=== PATIENT | male | born 1970 | race Caucasian/White ===

== ENCOUNTER 2016-10-11 09:37 | Inpatient (IN) | payer MEDICARE, OTHER ==
[~2016-10-11] VITALS: Ht 182.9 cm; Wt 93.4 kg
[~2016-10-11 09:37] MED LIST: FLUT16SP; LITH600C PO; QUET400T PO
[2016-10-11 10:02] VITALS: BP 169/100; PULSE 85; RESP 20; O2SAT 97
[2016-10-11] MEDS ORDERED: DIVA500T14 PO ×2 (10:22)
[2016-10-11] MEDS ORDERED: TADA5TAB2 PO (10:22)
[2016-10-11] MEDS ORDERED: OLANZapine Zydis ODT 5 mg Tablet PO SCH (10:35)
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
[2016-10-11 10:56] LABS: BASOPHILS % (AUTO) 0.8 % (0-3); EOSINOPHILS % (AUTO) 0.4 % (0-5); MONOCYTES % (AUTO) 10.4 % (4-12); Mean Corpuscular Hemoglobin 31.3 pg (27.0-35.0); Mean Corpuscular Volume 90.6 fL (81-100); NEUTROPHILS % (AUTO) 75.7 % (40-74); Platelet Count 254 bil/L (150-400)
[2016-10-11 11:17] LABS: APPEARANCE,URINE CLEAR (CLEAR,HAZY); COLOR,URINE YELLOW (YELLOW); OCCULT BLOOD,URINE TRACE (NEGATIVE); UROBILINOGEN,URINE NORMAL (NORMAL)
[2016-10-11 11:18] LABS: ICTOTEST,URINE NEGATIVE (Negative)
[2016-10-11] MEDS ORDERED: Haloperidol 5 mg/mL Inj IM PRN (11:45)
[2016-10-11 14:26] VITALS: BP 143/89; PULSE 51; RESP 18; O2SAT 100
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
[2016-10-11] MEDS ORDERED: Alum-Mag Hydrox-Simeth 30 mL Suspension PO PRN (18:25)
--- NOTE | 2016-10-12 05:04 | NUR ---
nursing, nights, 11-7 s- i feel dehydrated. can i have a snack. wondering if i can take a shower. do you have any clean underwear. thank you. o- has appeared to sleep until 0 when he requested a snack and something to drink. returned to sleep after 0030 to 0445. is currently showering. assessed q 15 minutes. a- interupted sleep, appears internally preoccupied at times, no apparent physical distress. p- monitor behavior/emotional state, quality, times and amount of sleep, use and effect of medication. alban
[2016-10-12] MEDS: LORazepam 1 mg Tablet PO PRN ×2 (06:03→17:02)
[2016-10-12 08:30] VITALS: BP 151/103; PULSE 77; RESP 17
--- NOTE | 2016-10-12 16:11 | NUR ---
Air Brake Man/Counselor S:"I am here because of sleep depravation." O:Patient did not express any SI or HI, no AVH, and no depression. He rated his anxiety at a 5. A: Patient did not express any AVH but stated that he was telepathic, but unable to share specifics. He appeared very paranoid in talking about the telepathy. He is tangential. Poor historian. He has swelling to his right hand but denies any pain, and was not able to recall how he may have injured his hand. P: Follow care plan and coordinate with outpatient providers. Addendum: 10/12/16 at 6 by CORNELL ZAMUDIO [facility] [place] Patient attended group the 11am group session and participated in all discussions.
--- NOTE | 2016-10-12 16:51 | NUR ---
Nursing Dayshift: S: "I didn't eat anything for the week before I got here. I think that might have something to do with how I'm feeling." O: Patient has been out in the public areas of the unit much of the shift. Eating well at meals. Social with staff and peers. Attending group activities. At present is out on the patio with peers. Has been making his requests known. A: Guarded. Directable. A little pressured. P: CPOC. Monitor mood and behavior.
[2016-10-12] MEDS: diphenhydrAMINE 25 mg Capsule PO PRN ×2 (17:02→21:34)
--- NOTE | 2016-10-12 17:07 | NUR ---
spiritual care: pt request brief visit in piano room. Pt energetic in manner, rapid-normal in speech patterns and eye contact. Pt did not engage in leading questions, rambling style of thought/conversation. Pt requested prayer and specified that he wanted to hold left hands--he recited sanjay carrillo and abbey vázquez then reconvened conversation.
--- NOTE | 2016-10-12 17:14 | NUR ---
Nurses PRN Patient requested and received "something for my nerves".Ativan 1mg and Benadryl 25mg received at this time,will assess response.
--- NOTE | 2016-10-12 17:39 | NUR ---
Observations 899 - 2129 Pt affect and mood was labile, intrusive, intense, inappropriate at times, scattered and confused. Pt was pleasant, polite and cooperative when approached. Pt maintained behavior throughout the shift. Pt speech was rambling and rapid. Pt eye contact was ok. Pt ate snack. Pt repeatedly keeps saying that hes in trouble and sorry for whats hes done. Pt paced the hallway, was busy on the unit and social during the day. Pt attended community meeting, groups or unit activities. Pt set a daily goal and rated his mood 12/24, with 10 being the best. Pt went out on patio with staff and peers to get some fresh air and sunshine. Pt was observed every 15 minutes through the shift as ordered. Addendum: 10/12/16 at 1840 by SOPHIA [facility] Pt was able to sign all of his admission paperwork this shift. Pt attended all meals in D.[facility]. and ate 100%.
[2016-10-12] MEDS ORDERED: [UNRECOGNIZED DRUG - REMARK] PO SCH (21:00)
[2016-10-12] MEDS: Fluticasone 0.05% 15 Spray/2 Gm 16 Gm Nasal Spray NOSTRIL SCH (21:30)
[2016-10-12] MEDS: QUEtiapine 300 MG, QUEtiapine 100 MG PO SCH ×2 (21:33)
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
--- NOTE | 2016-10-13 03:27 | NUR ---
nursing, nights, 11-7 s- i need a sheet. it's wet. i'm cold. no i don't want a blanket. i want more shirts. since the lad jarodk and doctor are not her. o- slept [id number]. up appeared to be masturbating while wandering the martin. sleeps for short periods 1/2 to 1 hour. assessed q 15 minutes. a- interupted/inadequate sleep, disorganized, directable, no apparent physical distress. p- monitor behavior/emotional state, quality, times and amount of sleep, use and effect of medication. rayfernando Addendum: 10/13/16 at 0540 by KOURTNEY CONROY RN Pt noted to sleep very poorly this shift. To nursing station with multiple requests. Pt presents intense at times and very disorganized. Pt requested medication for agitation this am and medicated with Ativan, Benadryl and Vistaril. Pt was adamant that he does not want Haldol every again, and that he wants to speak to ED MD, staff, and hospital community administrator about receiving it in the emergency department Addendum: 10/13/16 at 0614 by KOURTNEY CONROY RN Pt reports little improvement if any with medications given for agitation. AM dose of lithium given at this time. Continuing to monitor mood and behavior.
[2016-10-13] MEDS: hydrOXYzine Pamoate 25 mg Capsule PO PRN ×2 (05:31→10:32)
[2016-10-13] MEDS: LORazepam 1 mg Tablet PO PRN ×2 (05:31→15:42)
[2016-10-13] MEDS: diphenhydrAMINE 25 mg Capsule PO PRN (05:31)
[2016-10-13] MEDS: Fluticasone 0.05% 15 Spray/2 Gm 16 Gm Nasal Spray NOSTRIL SCH ×2 (08:05→20:40)
[2016-10-13 09:16] LABS: BASOPHILS % (AUTO) 1.5 % (0-3); EOSINOPHILS % (AUTO) 4.2 % (0-5); MONOCYTES % (AUTO) 9.2 % (4-12); Mean Corpuscular Hemoglobin 31.2 pg (27.0-35.0); Mean Corpuscular Volume 91.3 fL (81-100); NEUTROPHILS % (AUTO) 55.9 % (40-74); Platelet Count 272 bil/L (150-400)
[2016-10-13 13:51] VITALS: BP 150/93; PULSE 94; RESP 16
--- NOTE | 2016-10-13 15:26 | NUR ---
[facility] Day Shift Pt maintained behavioral control throughout the shift, though pt occasionally requires redirection from bizarre behavior. Pt affect appears mostly flat, preoccupied. Pt spends most of the shift pacing the unit, interacting with peers, and resting in his room. Pt speech occasionally appears nonsensical, bizarre. Pt behavior occasionally appears bizarre as well (ex. pt entered the hallway with his entire head/face wrapped in a sheet, blindly walking down the martin). Pt is mostly appropriate with staff and peers when active on the unit, but is occasionally intrusive/inappropriate and requires redirection. Pt attended community meeting in the AM and group activities throughout the shift. Pt has attended all meals at this time and has eaten approx 100% of all meals.
--- NOTE | 2016-10-13 15:48 | NUR ---
Nursing Dayshift: S: "Can I get these washed? I wouldn't advise you touch them." O: Patient started to hand bedding to this staff and then made the above statement. Had made his bed with new bedding provided by staff earlier this shift. Noted to be wearing a blanket around his head as a turban with an opening for his eyes. Has been c/o eye sensitively and has been loaned a unit pair of sunglasses. Grateful though stated he would like to keep them and take them home when he leaves. No episodes of masturbation noted or reported. Good appetite at meals. Rates anxiety at "medium". Depression "none". Denies harmful thoughts and hallucinations. A: Bizarre. Intrusive at times. Disorganized. P: CPOC. Monitor mood and behavior.
--- NOTE | 2016-10-13 18:02 | PCM.PNPSY ---
Subjective Date of Service Oct 13, 2016 Subjective The patient reported that he felt extremely claustrophobic when he was in the seclusion room in the emergency room which is why he punched the wall. He reported that he felt rather groggy after medications this morning but would still like to have something routine. He reported that the trazodone was not sufficient to help him sleep and that a relative had used 100 mg. He reported having a photographic memory as well as "NAYA" which he referred to as "extra spider veronica" in a joking fashion. He reported having the ability to predict the future. Other than grogginess he denied side effects to medications. Sleep: 0 hours per staff 2 hours per patient Appetite: "Good" Suicidal and homicidal ideation: Denies Auditory hallucinations: Denies Visual hallucinations: Denies Other Psychotic Symptoms: Denies paranoia, delusions as above Anxiety: "Better" Depression: "Going away" Current Medications Current Medications Acetaminophen 650 mg Q4H PRN PO Last administered on 10/13/16 16:20; Admin Dose 650 MG; Start 10/11/16 at 18:25 Diphenhydramine HCl 25 mg Q4H PRN PO Last administered on 10/13/16 05:31; Admin Dose 25 MG; Start 10/11/16 at 21:00 Fluticasone Propionate 1 spray BID NOSTRIL Last administered on 10/13/16 08:05 ; Admin Dose 1 SPRAY; Start 10/12/16 at 20:30 Hydroxyzine Pamoate 25-50mg po q6h prn anx/agit Q6H PRN PO Last administered on 10/13/16 10:32; Admin Dose 50 MG; Start 10/12/16 at 22:15 [place] Carbonate 600 mg BID PO Last administered on 10/13/16 06:11; Admin Dose 600 MG; Start 10/12/16 at 20:30 Lorazepam 1 mg Q4H PRN PO Last administered on 10/13/16 15:42; Admin Dose 1 MG ; Start 10/11/16 at 21:00 Quetiapine Fumarate 100 mg Q4 PRN PO Last administered on 10/13/16 16:38; Admin Dose 100 MG; Start 10/13/16 at 09:40 Quetiapine Fumarate/ Quetiapine Fumarate 400 mg HS PO Last administered on 21:33; Admin Dose 400 MG; Start 10/12/16 at 21:00 Trazodone HCl 50 mg HS PO Last administered on 10/12/16 23:45; Admin Dose 50 MG ; Start 10/12/16 at 22:10 Mental Status Exam Vital Signs Vital Signs Date Time Temp Pulse Resp B/P Pulse Ox O2 Delivery O2 Flow Rate FiO2 10/13/16 13:51 36.6 94 16 150/93 Appearance: Unkept (mildly although neatly dressed, pants falling down at one point) Attitude: Pleasant, Cooperative Behavior: No unusual behavior Affect: Well Modulated/Appropriate Mood: Expansive (at times) Thought Process/Associations: Goal Directed, Tangential Speech Production: Normal Speech Rate: Normal Speech Articulation: Normal Thought Content: Perseveration, Other (clairvoyance) Danger to Self/Suicidal Ideati: None Danger to Others: None Delusions: Paranoid (Endorses) Hallucinations: Auditory (Denies), Visual (Denies) Consciousness: Alert Orientation: Person, Place, Date, Situation Memory: Grossly Intact Estimate Intellectual Function: Average Basis for IQ estimate: Awareness current events, Word use/vocabulary, Educational history Attention/Concentration & Cogn: Impaired Insight: Limited Judgement: Limited Result Diagram: 10/13/16 0850 10/12/16 0730 Mental Health Plan The patient is a 46-year-old male with a history of schizoaffective disorder, bipolar type, who presents with decompensation having stopped taking his antipsychotic and one of his mood stabilizers while remaining on lithium. The patient appeared to have a slight demargination reaction with a white count of 17,000 and had a slightly elevated creatine kinase but had dropped the day following assessment in the emergency department. His lithium level had been 0.6 which indicated at least partial compliance. The patient is agreeable to restarting lithium and quetiapine. The patient is still somewhat disinhibited today and is agreeable to schedule benzodiazepine until more stable. Patient agreeable to as needed quetiapine for psychotic agitation as he reports he cannot tolerate side effects of haloperidol (although none reported or noted today). [place] I 1. Schizoaffective disorder, bipolar type. 2. Alcohol use disorder in partial remission. 3. Cannabis use disorder. [place] II Deferred. [place] III Right hand edema and superficial lacerations, elevated creatinine kinase. [place] IV Moderate to severe. [place] V Global assessment of functionin. Treatments 1. The patient is admitted to the inpatient unit and will be provided a safe and secure environment. 2. The patient is denying current active suicidality and is not in need of a one-to-one at this time. 3. The patient is encouraged to participate with group and milieu activities. 4. The patient will be seen by the treatment team on a daily basis to assess symptoms, side effects, and response to treatment. 5. The patient will be continued on lithium carbonate 600 mg twice daily. 6. The patient will be restarted on quetiapine 400 mg at bedtime and titrated to 600 mg at bedtime or possibly higher as the patient is declining Depakote with 100mg q4hr prn severe agitation. 7. Trazodone 100 mg nightly as needed for insomnia may repeat 1. 8. Hydroxyzine 25 mg to 50 mg p.o. q.4 h. p.r.n. anxiety or agitation. 9. Anticipated length of stay is 10-14 days. Devonte Westfall MD Oct 13, 2016 18:01 Other (Specify): Devonte Westfall MD Oct 13, 2016 18:01
[2016-10-13] MEDS: LORazepam 1 mg Tablet PO SCH (20:38)
[2016-10-13] MEDS: Benzocaine-Menthol Lozenge 2/Pkg PO PRN (20:39)
--- NOTE | 2016-10-13 21:17 | DRSVH ---
PROCEDURE: X-RAY RIGHT HAND, TWO VIEWS ([id number]) INDICATIONS: SWOLLEN, WEAK RIGHT HAND TECHNIQUE: 2 views of the hand(s) acquired. COMPARISON: None. FINDINGS: Bones: No fractures or dislocations. Carpal bones are normally aligned. No suspicious bony lesions . Soft tissues: No suspicious soft tissue calcifications. IMPRESSION: Mild soft tissue swelling but no gas in the soft tissues nor is there evidence of trauma or foreign body. Dictated by: Bartolome Cardoza M.D. on 10/13/2016 at 21:15 Approved by: Bartolome Cardoza M.D. on 10/13/2016 at 21:16
--- NOTE | 2016-10-13 21:18 | DRSVH ---
PROCEDURE: X-RAY THORACIC SPINE, 3 VIEWS INDICATIONS: pain TECHNIQUE: 3 views of the thoracic spine were acquired. COMPARISON: None. FINDINGS: Bones: No fractures or dislocations. No suspicious bony lesions. 12 pairs of ribs are noted, and ap pear intact where visualized. Soft tissues: No paravertebral stripe thickening. IMPRESSION: Moderate degenerative disc disease, no evidence of compression fracture or discitis/oste omyelitis. The paravertebral soft tissues appear normal on the frontal projection. Source of curren t symptoms is not seen. Dictated by: Bartolome Cardoza M.D. on 10/13/2016 at 21:16 Approved by: Bartolome Cardoza M.D. on 10/13/2016 at 21:17
--- NOTE | 2016-10-13 21:19 | DRSVH ---
PROCEDURE: X-RAY LEFT FOOT COMPLETE, MINIMUM THREE VIEWS ([id number]) INDICATIONS: swollen, bruising TECHNIQUE: 3 views of the foot were acquired. COMPARISON: None. FINDINGS: Bones: No fractures or dislocations. No suspicious bony lesions. Soft tissues: No tibiotalar joint effusion. Achilles tendon appears normal. No gas in the soft tis sues is seen. IMPRESSION: No trauma found. Source of current pain is not seen. Mild soft tissue swelling is note d over the forefoot on the lateral projection. Dictated by: Bartolome Cardoza M.D. on 10/13/2016 at 21:17 Approved by: Bartolome Cardoza M.D. on 10/13/2016 at 21:18
[2016-10-13] MEDS: QUEtiapine 300 MG, QUEtiapine 100 MG PO SCH ×2 (21:44)
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
--- NOTE | 2016-10-14 03:04 | NUR ---
Nursing Noc Pt continues to show difficulty tracking subject without displaying tangential like thinking. Insight limited, controversial towards others and blunt in nature when attempting to focus on subject. MD hospitalist into eval foot and hand this shift, imaging obtained. Pt complacent with medication administration. Continuing to monitor mood, behavior, and emotional state. Q15 safety checks performed as ordered. CP
[2016-10-14] MEDS: LORazepam 1 mg Tablet PO SCH ×2 (07:50→20:47)
[2016-10-14] MEDS: Fluticasone 0.05% 15 Spray/2 Gm 16 Gm Nasal Spray NOSTRIL SCH ×2 (07:51→20:48)
[2016-10-14] MEDS: Mupirocin 2% 22 Gm Ointment TOPICAL SCH ×2 (08:30→20:46)
[2016-10-14] MEDS: Benzocaine-Menthol Lozenge 2/Pkg PO PRN (09:36)
[2016-10-14] MEDS: hydrOXYzine Pamoate 25 mg Capsule PO PRN (13:40)
--- NOTE | 2016-10-14 14:28 | NUR ---
Wood Stainer/Counselor S:"I'm fasting until someone from the nondenominational comes to see me." O:Patient denies any SI and HI, he states he does not have any AVH and rated his anxiety at high, but no depression. A: Patient stated that his concentration is a lot clearer, and that it's even clearer when the Adventist music channel is on. He is wearing sunglasses because they "help with the ultraviolet light" that is inside the unit. He was very tangential with limited insight. P: Follow care plan and coordinate with outpatient providers. Addendum: 10/14/16 at 1505 by CORNELL ZAMUDIO [facility] [place] Patient attended the group session and participated in all discussions.
--- NOTE | 2016-10-14 15:03 | PCM.PNPSY ---
Subjective Date of Service Oct 14, 2016 Subjective The patient came to the interview room with his sunglasses on stating that there was "too much ultraviolet" on the unit. He reported that his concentration is improving and that it is "10/10 when music is on or a true Yarsanism channel is on. I am clairvoyant with a lot of speed to it." The patient reported receiving quetiapine this morning and felt quite drowsy. He also requested buffered aspirin instead of Tylenol. The patient went on to talk about bifocals and how they arc the light as you look through them and then talked about having a "full photographic memory but smear it." Other than grogginess he denied side effects to medications. Sleep: 6.75 hours Appetite: "I am fasting until someone from the tenriism comes." Suicidal and homicidal ideation: Denies Auditory hallucinations: Denies Visual hallucinations: Denies Other Psychotic Symptoms: Denies paranoia, delusions as above Anxiety: "Pretty high-doing something from the past and replicating" Depression: 0/10 Current Medications Current Medications Fluticasone Propionate 1 spray BID NOSTRIL Last administered on 10/14/16 07:51; Admin Dose 1 SPRAY; Start 10/12/16 at 20:30 Hydroxyzine Pamoate 25-50mg po q6h prn anx/agit Q6H PRN PO Last administered on 10/14/16 13:40; Admin Dose 50 MG; Start 10/12/16 at 22:15 Ibuprofen 600 mg TID PRN PO Last administered on 10/14/16 06:30; Admin Dose 600 MG; Start 10/13/16 at 20:35 [place] Carbonate 600 mg BID PO Last administered on 10/14/16 07:50; Admin Dose 600 MG; Start 10/12/16 at 20:30 Lorazepam 1 mg BID PO Last administered on 10/14/16 07:50; Admin Dose 1 MG; Start 10/13/16 at 20:30 Mupirocin 1 applic BID TOPICAL Last administered on 10/14/16 08:30; Admin Dose 1 APPLIC; Start 10/14/16 at 08:30 Quetiapine Fumarate 100 mg Q4 PRN PO Last administered on 10/14/16 06:35; Admin Dose 100 MG; Start 10/13/16 at 09:40 Quetiapine Fumarate/ Quetiapine Fumarate 400 mg HS PO Last administered on 21:44; Admin Dose 400 MG; Start 10/12/16 at 21:00 Trazodone HCl 50 mg HS PO Last administered on 10/12/16 23:45; Admin Dose 50 MG ; Start 10/12/16 at 22:10; Stop 10/13/16 at 21:24; Status DC Trazodone HCl 100 mg HS PO Last administered on 10/13/16 21:44; Admin Dose 100 MG; Start 10/13/16 at 21:00 Mental Status Exam Appearance: Unkept Attitude: Pleasant, Cooperative Behavior: No unusual behavior Affect: Well Modulated/Appropriate Mood: Euthymic Thought Process/Associations: Goal Directed (generally), Loose, Tangential Speech Production: Normal Speech Rate: Normal Speech Articulation: Normal Thought Content: Ideas of Reference (possible), Perseveration Danger to Self/Suicidal Ideati: None Danger to Others: None Delusions: Paranoid Hallucinations: Auditory (Denies), Visual (Denies) Consciousness: Alert Orientation: Person, Place, Date, Situation Memory: Grossly Intact Estimate Intellectual Function: Average Basis for IQ estimate: Awareness current events, Word use/vocabulary, Educational history Attention/Concentration & Cogn: Impaired Insight: Limited Judgement: Limited Result Diagram: 10/13/16 0850 10/12/16 0730 Mental Health Plan The patient is a 46-year-old male with a history of schizoaffective disorder, bipolar type, who presents with decompensation having stopped taking his antipsychotic and one of his mood stabilizers while remaining on lithium. The patient appeared to have a slight demargination reaction with a white count of 17,000 and had a slightly elevated creatine kinase but had dropped the day following assessment in the emergency department. His lithium level had been 0.6 which indicated at least partial compliance. The patient is agreeable to restarting lithium and quetiapine. The patient is still somewhat disinhibited today and is agreeable to schedule benzodiazepine until more stable. Patient would prefer quetiapine scheduled at bedtime at his normal 600 mg dose. As the patient is taking lithium, use of NSAIDs such as aspirin is contraindicated. [place] I 1. Schizoaffective disorder, bipolar type. 2. Alcohol use disorder in partial remission. 3. Cannabis use disorder. [place] II Deferred. [place] III Right hand edema and superficial lacerations, elevated creatinine kinase. [place] IV Moderate to severe. [place] V Global assessment of functionin. Treatments 1. The patient is admitted to the inpatient unit and will be provided a safe and secure environment. 2. The patient is denying current active suicidality and is not in need of a one-to-one at this time. 3. The patient is encouraged to participate with group and milieu activities. 4. The patient will be seen by the treatment team on a daily basis to assess symptoms, side effects, and response to treatment. 5. The patient will be continued on lithium carbonate 600 mg twice daily. 6. Quetiapine will be increased to 600 mg at bedtime or possibly higher as the patient is declining Depakote. 7. Trazodone 100 mg nightly as needed for insomnia may repeat 1. 8. Discontinue ibuprofen 9. Anticipated length of stay is 10-14 days. Devonte Westfall MD Oct 14, 2016 15:03
[2016-10-14] MEDS: LORazepam 1 mg Tablet PO PRN (15:34)
[2016-10-14 16:11] VITALS: BP 176/135; PULSE 103; RESP 16
--- NOTE | 2016-10-14 17:04 | NUR ---
[id number]. nurs. S: " that seroquel this morning made me think I was going to fall down...I want a list of what I have as needed meds...I want to see the collect on delivery clerk I am fasting till I do...I don't know why I am here, I want to see court papers......I broke my promise, I promised my brother that I wouldn't go crazy again..." O: Pt presenting with restless pressured, disorganised tangential presentation with poor memory, approaching different staff with numerous repeated requests and while reporting that he is unaware of reasons for his hospitalization also seeming to have some appreciation of situation precip admit with his reference to breaking promise to brother. Pt becoming quickly reactive to any other pt's disruptive behaviour. As well as clear statements as above listed , pt expressing a lot of additional partial statements re "I was just showing my student....some advent preoccupation also. Pt requesting medication for pain in hand and given tylenol 650mg at 0936, pt sitting on floor at medrm c/o anxiety and given vistaril 50mg at 1340. Pt loud, agitated and pressured, about being given haldol on arrival that could have killed him and given ativan 1mg at that time. Pt did not eat breakfast lunch or dinnner but frequently drinking water coffee milk and had offered ensure at dinner time. Cloth Mercerizer Operator contacted for pt but unavailable today and possibly tomorrow and explained to pt Pt given all items as requested above. P:CNCP enc. food intake.
--- NOTE | 2016-10-14 17:54 | NUR ---
Observations 0900 - 0 Pt affect and mood remained same as previous shifts. Pt was pleasant, polite and cooperative when approached but was a little agitated at times. Pt maintained behavior throughout the shift. Pt speech was rambling and rapid. Pt eye contact was ok. Pt ate snack. Pt paced the hallway, was busy on the unit and social during the day. Pt attended community meeting, groups or unit activities. Pt set a daily goal and rated his mood 3/10, with 10 being the best. Pt went out on patio with staff and peers to get some fresh air. Pt played the wii with a peer and appeared to be enjoying this. Pt took a shower and attended to ADL's. Pt was observed every 15 minutes through the shift as ordered.
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
[2016-10-15] MEDS: diphenhydrAMINE 25 mg Capsule PO PRN (03:49)
--- NOTE | 2016-10-15 04:28 | NUR ---
Nursing Noc "see this, these could be used as weapons or I could scratch my eyes or slit my wrists." When asked where he got the two tamiko, patient refused to answer. later commercial underwriter noticed he had tore apart a legal pad binder and removed the tamiko. "There is one person here that bothers me, and I going to deal with them later, depending what father says". Pt continues to sleep poorly even with available PRNs. Pt presents delusional with tangential communication. Preoccupied with foot fungus and body aches. Vulcanizer scheduled to see patient regarding foot fungus and c/o ingrown toe nails. Zero obvious infectious process noted to feet.
[2016-10-15] MEDS: Benzocaine-Menthol Lozenge 2/Pkg PO PRN (04:31)
[2016-10-15] MEDS: LORazepam 1 mg Tablet PO SCH ×2 (07:53→21:59)
[2016-10-15] MEDS: Mupirocin 2% 22 Gm Ointment TOPICAL SCH ×2 (07:55→20:30)
[2016-10-15] MEDS: Fluticasone 0.05% 15 Spray/2 Gm 16 Gm Nasal Spray NOSTRIL SCH ×2 (07:56→20:30)
[2016-10-15] MEDS: DICLOFENAC 0.1% TOPICAL SCH (08:30)
[2016-10-15] MEDS: LORazepam 1 mg Tablet PO PRN ×2 (12:18→18:34)
[2016-10-15 16:06] VITALS: BP 168/114; PULSE 92; RESP 18
--- NOTE | 2016-10-15 16:36 | PCM.PNPSY ---
Subjective Date of Service Oct 15, 2016 Subjective The patient reports that he is upset with [facility] because of their payee management. Patient stated that he would like to go to [facility]. Patient rather rambling and eventually spoke at length on receiving Haldol and that he would like to receive an apology. Patient reported an allergy though described excess sedation and sialorrhea. Explained difference to patient and that we would enter an ADR but that this was not an allergy. No side effects to current regimen. Sleep: 3.25 hours per staff, patient reports, "slept a lot" Appetite: "fasting" drinking milk until sees clergy. Suicidal and homicidal ideation: denies Auditory hallucinations: denies Visual hallucinations: denies Other Psychotic Symptoms: disorganized, somewhat paranoid Anxiety: "really anxious" Depression: denies Current Medications Current Medications Amlodipine Besylate 10 mg DAILY PO Last administered on 10/14/16 20:30; Admin Dose 10 MG; Start 10/14/16 at 20:30; Stop 10/15/16 at 07:31; Status DC Amlodipine Besylate 10 mg DAILY PO Last administered on 10/15/16 12:18; Admin Dose 10 MG; Start 10/15/16 at 12:00 Ibuprofen 600 mg TID PRN PO Last administered on 10/14/16 06:30; Admin Dose 600 MG; Start 10/13/16 at 20:35; Stop 10/14/16 at 15:04; Status DC Lorazepam 1 mg BID PO Last administered on 10/15/16 07:53; Admin Dose 1 MG; Start 10/13/16 at 20:30 Mupirocin 1 applic BID TOPICAL Last administered on 10/15/16 07:55; Admin Dose 1 APPLIC; Start 10/14/16 at 08:30 Quetiapine Fumarate 600 mg HS PO Last administered on 10/14/16 22:04; Admin Dose 600 MG; Start 10/14/16 at 21:00 Trazodone HCl 100 mg HS PO Last administered on 10/14/16 22:04; Admin Dose 100 MG; Start 10/13/16 at 21:00 Mental Status Exam Vital Signs Vital Signs Date Time Temp Pulse Resp B/P Pulse Ox O2 Delivery O2 Flow Rate FiO2 10/15/16 16:06 36.8 92 18 168/114 Appearance: Unkept Attitude: Pleasant, Cooperative Behavior: No unusual behavior Affect: Well Modulated/Appropriate Mood: Euthymic Thought Process/Associations: Goal Directed (generally), Loose, Tangential Speech Production: Normal Speech Rate: Normal Speech Articulation: Normal Thought Content: Perseveration Danger to Self/Suicidal Ideati: None Danger to Others: None Delusions: Paranoid Hallucinations: Auditory (Denies), Visual (Denies) Consciousness: Alert Orientation: Person, Place, Date, Situation Memory: Grossly Intact Estimate Intellectual Function: Average Basis for IQ estimate: Awareness current events, Word use/vocabulary, Educational history Attention/Concentration & Cogn: Impaired Insight: Limited Judgement: Limited Result Diagram: 10/13/16 0850 10/12/16 0730 Mental Health Plan The patient is a 46-year-old male with a history of schizoaffective disorder, bipolar type, who presents with decompensation having stopped taking his antipsychotic and one of his mood stabilizers while remaining on lithium. The patient appeared to have a slight demargination reaction with a white count of 17,000 and had a slightly elevated creatine kinase but had dropped the day following assessment in the emergency department. His lithium level had been 0.6 which indicated at least partial compliance. The patient is agreeable to restarting lithium and quetiapine. The patient is still somewhat disinhibited today and is agreeable to schedule benzodiazepine until more stable. Patient would prefer quetiapine scheduled at bedtime at his normal 600 mg dose. As the patient is taking lithium, use of NSAIDs such as aspirin is contraindicated, discussed again with patient. Omar Omar I 1. Schizoaffective disorder, bipolar type. 2. Alcohol use disorder in partial remission. 3. Cannabis use disorder. Omar II Deferred. Omar III Right hand edema and superficial lacerations, elevated creatinine kinase. Omar IV Moderate to severe. Omar V Global assessment of functionin. Treatments 1. The patient is admitted to the inpatient unit and will be provided a safe and secure environment. 2. The patient is denying current active suicidality and is not in need of a one-to-one at this time. 3. The patient is encouraged to participate with group and milieu activities. 4. The patient will be seen by the treatment team on a daily basis to assess symptoms, side effects, and response to treatment. 5. The patient will be continued on lithium carbonate 600 mg twice daily. 6. Quetiapine 600 mg at bedtime or possibly higher as the patient is declining Depakote. 7. Trazodone 100 mg nightly as needed for insomnia may repeat 1. 8. Moonshine level, cbc, cmp in am. 9. Anticipated length of stay is 10-14 days. Devonte Westfall MD Oct 15, 2016 16:36
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
--- NOTE | 2016-10-15 18:26 | NUR ---
[facility] Day Shift Pt appears to have difficulty maintaining behavioral control throughout the shift, occasionally requiring redirection from bizarre behavior. Pt affect appears mostly flat, preoccupied. Pt spends most of the shift pacing the unit, interacting with peers, and resting in his room. Pt speech occasionally appears nonsensical, bizarre. Pt behavior occasionally appears bizarre as well (ex. pt entered the hallway with his entire head/face wrapped in a sheet, blindly walking down the martin). Pt is mostly appropriate with staff and peers when active on the unit, but is occasionally intrusive/inappropriate and requires redirection. Pt attended community meeting in the AM and group activities throughout the shift. Pt has attended all meals at this time and has eaten approx 100% of all meals.
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
--- NOTE | 2016-10-16 04:36 | NUR ---
Nursing Noc Pt continues with bizarre behavior but willing to follow staff direction. He did attend evening community meeting. He makes his peers feel uncomfortable and they have been avoidant of him this evening. His thought process remains loose. At one point staff was walking down the martin with a new patient and he faced the wall and laid flat against it until we passed by. He continues to state he is fasting but requested and received milk in place of food item for a snack. Took scheduled medication without difficulty. Adequate sleep through the night with no noted distress or awakening per protocol checks. Total sleep close to six hours.
[2016-10-16] MEDS: LORazepam 1 mg Tablet PO PRN ×4 (06:30→22:27)
[2016-10-16] MEDS: LORazepam 1 mg Tablet PO SCH ×2 (07:53→20:51)
[2016-10-16] MEDS: Fluticasone 0.05% 15 Spray/2 Gm 16 Gm Nasal Spray NOSTRIL SCH ×2 (07:54→20:49)
[2016-10-16] MEDS: DICLOFENAC 0.1% TOPICAL SCH (07:54)
[2016-10-16] MEDS: Mupirocin 2% 22 Gm Ointment TOPICAL SCH ×3 (08:08→22:31)
[2016-10-16 08:55] LABS: BASOPHILS % (AUTO) 1.7 % (0-3); EOSINOPHILS % (AUTO) 4.5 % (0-5); MONOCYTES % (AUTO) 11.6 % (4-12); Mean Corpuscular Hemoglobin 31.1 pg (27.0-35.0); Mean Corpuscular Volume 90.9 fL (81-100); NEUTROPHILS % (AUTO) 58.4 % (40-74); Platelet Count 375 bil/L (150-400)
--- NOTE | 2016-10-16 11:00 | NUR ---
Conflict with another patient talking with patient during AM medication pass when interrupted by another patient. Juan Francisco had an exaggerated reaction, turning to the other patient and raised his voice commenting on her interruption. patient's body language and tone appeared aggressive and threatening. patient appears unaware of how his behavior is being perceived by other. discussed with patient and asked if there was another way he could have handled the situation without having both parties being upset. He stated, "No. men don't interrupt women when they are talking. they shouldn't interrupted men". Continue to monitor and encourage more friendly interaction with other patients.
--- NOTE | 2016-10-16 15:39 | NUR ---
Obs Dayshift Pt is very disorganized, delusional, restless. Pt spent most of the morning in his room, spilled all over his bed, put toothpaste and possibly lotion on windows, wall, etc. Pt was wearing his boxers and stated that it was his "swim trunks and that's why there is water." Pt had water dripping all over bathroom and around the bedroom. Pt needed assistance multi times to get the room cleaned up. Pt attempted to shave, which took multi times over 3 hrs. Pt was cleaning the dining area after breakfast, putting soap all over his hands and wiping it over the counters and ice machine. Used his breakfast plate and filled it with ice to catch things. Pt is pressured, tangential, rambling. Poor ADL's, Ok meals
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
--- NOTE | 2016-10-16 16:18 | NUR ---
In File Operator/Counselor S:"I completed my fast." O:Patient did not express any SI or HI, no AVH and rated his anxiety and depression at 6. A:He has been disorganized and delusional. He has been in his room for most of the day and did not participate in group. According to staff he has been making a mess of his room. Another patient reported him to be very disruptive and antagonizing. Patient spoke with the nurse chemical dependency and has completed his fast. P:Follow care plan and coordinate with outpatient providers.
--- NOTE | 2016-10-16 17:37 | CONS ---
[address] [address] CONSULTATION REPORT PATIENT: LONG BRANDT : 1970 MR#: [id number] ADMIT: 10/11/2016 JOB ID: [id number] DATE OF SERVICE: 10/16/2016 CHIEF COMPLAINT: Ingrown toenails. CONSULTATION REQUESTED: Dr. Jhoana Abdullahi to evaluate the patient's ingrowing toenails. HISTORY: The patient is a 46-year-old gentleman who normally gets foot care by Dr. Frost and states that he digs out the ingrown nail borders periodically when he can make it down there. He is currently complaining of some pain in the edges and would like to have them clipped out. His brother had a procedure to permanently remove the ingrown toenail edges and that worked out well for him. The patient himself has not considered that kind of a procedure himself. No other complaints. PAST MEDICAL HISTORY/MEDICATIONS/CURRENT HISTORY: Reviewed in the EMR. PHYSICAL EXAMINATION: The patient is alert, oriented, and cooperative in no acute distress. His bilateral hallux and 2nd toenails are cryptotic and show impacted cuticle tissue on the medial and lateral borders requiring debridement, but no excision. Neurovascular status is intact. There are multiple abrasions and cuts on the lower extremities that are all superficial. The toenails are long. The toes are elongated. There is no active sign of mycosis. ASSESSMENT: Cryptotic toenails, one through five bilaterally. PLAN: After evaluating the patient today and discussing the plan of action with him, I found it necessary to debride the nail edges to alleviate pain. This was done without the need for local anesthetic using a reversed curve tissue nipper. The patient tolerated it well. He found that the nails felt a lot better after the ingrowing nail borders were simply avulsed with this instrument. I debrided all of his toenails without incident using Hibiclens soap for a prep to make sure that I had a clean surface. He is instructed to keep his feet out of enclosed shoes or too tight of a shoe to prevent pain in the future, and I recommended surgical intervention to remove this toenail edges permanently at some point on an outpatient basis. At this point, it is not necessary to perform this on an inpatient basis. Podiatry is signing off.
[2016-10-16 17:51] VITALS: BP 167/106; PULSE 92; RESP 19
--- NOTE | 2016-10-16 18:03 | NUR ---
Nursing Days patient continue with bizarre behavior; rearranging the furniture in the common area several times. odd comments that are difficult to follow with a focus on denominational aspects, relating current situation to stories he remembers from the bible. Continues to make his peers feel uncomfortable, taking an aggressive/threatening posture at times, especially when his behavior is questioned by the other patients. (see note from earlier today about conflict with another patient). patient did have a long conversation with the Jw today and began eating again, finishing 100% of his dinner. continue to monitor and encourage more appropriate interaction with peers.
--- NOTE | 2016-10-16 19:43 | PCM.PNMED ---
Subjective Date of Service Oct 16, 2016 Subjective Patient seen and examined today. Complains of right hand swelling and pain still. Feels better after podiatry clipped the ingrown nails. Was active all day , did make some threats to fellow patients. Vitals stable (slightly hypertensive ) Exam Vital Signs Vital Sign - Last Date Time Temp Pulse Resp B/P Pulse Ox O2 Delivery O2 Flow Rate FiO2 10/16/16 17:51 36.7 92 19 167/106 10/11/16 14:26 100 Room Air Intake and Output 10/15/16 10/15/16 10/16/16 Cumulative From/Thru 15:00 23:00 07:00 10/11/16 10:02 - 10/11/16 17:28 Intake Total 1600 ml Output Total 1200 ml Balance 400 ml Intake Oral 1600 ml Output Urine Total 1200 ml # Voids 1 Exam General: NAD HEENT: NCAT Heart: RRR, no s3/s4 Lungs: CTA, no crackles or wheezes Ext: Right hand swollen. Psych: Normal mood and affect during interaction. Reasonable judgement. Neurological: No focal deficits Lab and Diagnostics Result Diagram: 10/16/16 0845 10/16/16 0845 X-Rays, CTs and MRIs IMPRESSION: No trauma found. Source of current pain is not seen. Mild soft tissue swelling is noted over the forefoot on the lateral projection. Dictated by: Bartolome Cardoza M.D. on 10/13/2016 at 21:17 Approved by: Bartolome Cardoza M.D. on 10/13/2016 at 21:18 --------- PROCEDURE: X-RAY RIGHT HAND, TWO VIEWS ([id number]) INDICATIONS: SWOLLEN, WEAK RIGHT HAND TECHNIQUE: 2 views of the hand(s) acquired. COMPARISON: None. FINDINGS: Bones: No fractures or dislocations. Carpal bones are normally aligned. No suspicious bony lesions. Soft tissues: No suspicious soft tissue calcifications. IMPRESSION: Mild soft tissue swelling but no gas in the soft tissues nor is there evidence of trauma or foreign body. Dictated by: Bartolome Cardoza M.D. on 10/13/2016 at 21:15 Approved by: Bartolome Cardoza M.D. on 10/13/2016 at 21:16 PROCEDURE: X-RAY THORACIC SPINE, 3 VIEWS INDICATIONS: pain TECHNIQUE: 3 views of the thoracic spine were acquired. COMPARISON: None. FINDINGS: Bones: No fractures or dislocations. No suspicious bony lesions. 12 pairs of ribs are noted, and appear intact where visualized. Soft tissues: No paravertebral stripe thickening. IMPRESSION: Moderate degenerative disc disease, no evidence of compression fracture or discitis/osteomyelitis. The paravertebral soft tissues appear normal on the frontal projection. Source of current symptoms is not seen. Assessment & Plan #Hypertension, uncontrolled: - - could be secondary to agitation -- patient on amlodipine -- cannot use lisinopril or diuretics as they interact with lithium, started on carvedilol, will monitor #Onchomycosis -- taken care of by podiatry, appreciate # Ingrown Toe nails on two halluxes: -- podiatry took care, appreciate it # R hand swelling/bruising: Appears to have hit an object with fist. Improving -- X-ray is ordered: Neg for fractures -- concern for cellulitis, started on augmentin, will monitor -- Ice, elevate rest # Foot digit discoloration/ecchymoses resolved -- x-ray is ordered: neg for fractures -- Ice, elevate, rest # Deep Laceration over hand improving -- steri streps andare applied -- keep it clean and dry -- mupirocin ointment # Pain below C7 over the thoracic spine stable -- X-ray of thoracic spine: showed DJD -- Diclofenac gel We will follow the patient ans review the x-rays. We appreciate the consult. Steve Carson MD Oct 16, 2016 19:43
[2016-10-16] MEDS: Amoxicillin-Clav 500-125 mg Tablet PO SCH (20:17)
--- NOTE | 2016-10-16 21:22 | PCM.PNPSY ---
Subjective Date of Service Oct 16, 2016 Subjective The patient reported that he met with the mercantile reporter and completed his fast. He reported feeling controlled by some of the other patients and reported that he felt offended at times. He reports using medication PRN to address his anxiety. The patient reported concern about the status of his car and indicated that he would call his brother to find out the status of the car. The patient abraded the bridge of his nose overnight. Patient he did it in his sleep though appears repetitive. The patient also reported that he has lost his CPAP but reported receiving it from Dr. Wagner at [facility] and he rented it from [employer]. The patient was noted to still have mild tremor and lithium level 1.1. No side effects outside of tremor. Sleep: 6-7 hours Appetite: increased appetite since breaking fast. Suicidal and homicidal ideation: denies Auditory hallucinations: denies Visual hallucinations: denies Other Psychotic Symptoms: disorganized, somewhat paranoid Anxiety: denies Depression: denies Current Medications Current Medications Amlodipine Besylate 10 mg DAILY PO Last administered on 10/16/16 07:53; Admin Dose 10 MG; Start 10/15/16 at 12:00 Amoxicillin/ Clavulanate Potassium 1 tab TIDWM PO Last administered on 10/16/16 20:17; Admin Dose 1 TAB; Start 10/16/16 at 19:39 [place] Carbonate 450 mg HS ONCE PO Last administered on 10/16/16 20:50; Admin Dose 450 MG; Start 10/16/16 at 21:00; Stop 10/16/16 at 21:01; Status DC Lorazepam lorazepam 1-2mg po q6hr prn anxiety/agitation Q6H PRN PO Last administered on 10/16/16 17:21; Admin Dose 1 MG; Start 10/16/16 at 11:20 Mental Status Exam Vital Signs Vital Signs Date Time Temp Pulse Resp B/P Pulse Ox O2 Delivery O2 Flow Rate FiO2 10/16/16 17:51 36.7 92 19 167/106 Appearance: Unkept Attitude: Pleasant, Cooperative Behavior: No unusual behavior Affect: Well Modulated/Appropriate Mood: Euthymic Thought Process/Associations: Goal Directed (generally), Loose, Tangential Speech Production: Normal Speech Rate: Normal Speech Articulation: Normal Thought Content: Perseveration Danger to Self/Suicidal Ideati: None Danger to Others: None Delusions: Paranoid Hallucinations: Auditory (Denies), Visual (Denies) Consciousness: Alert Orientation: Person, Place, Date, Situation Memory: Grossly Intact Estimate Intellectual Function: Average Basis for IQ estimate: Awareness current events, Word use/vocabulary, Educational history Attention/Concentration & Cogn: Impaired Insight: Limited Judgement: Limited Result Diagram: 10/16/16 0845 10/16/16 0845 Mental Health Plan The patient is a 46-year-old male with a history of schizoaffective disorder, bipolar type, who presents with decompensation having stopped taking his antipsychotic and one of his mood stabilizers while remaining on lithium. The patient appeared to have a slight demargination reaction with a white count of 17,000 and had a slightly elevated creatine kinase but had dropped the day following assessment in the emergency department. His lithium level had been 0.6 which indicated at least partial compliance. The patient is agreeable to restarting lithium and quetiapine. The patient is still somewhat disinhibited today and is agreeable to schedule benzodiazepine until more stable. Patient would prefer quetiapine scheduled at bedtime at his normal 600 mg dose. As the patient is taking lithium, use of NSAIDs such as aspirin is contraindicated, discussed again with patient. The patient is still intrusive with peers and is still disorganized at times and difficult to redirect. The patient is also experiencing tremor which is likely secondary to lithium. Discussed switching to Eskalith, lowering dose and adding AM quetiapine. [place] I 1. Schizoaffective disorder, bipolar type. 2. Alcohol use disorder in partial remission. 3. Cannabis use disorder. [place] II Deferred. [place] III Right hand edema and superficial lacerations, elevated creatinine kinase. [place] IV Moderate to severe. [place] V Global assessment of functionin. Treatments 1. The patient is admitted to the inpatient unit and will be provided a safe and secure environment. 2. The patient is denying current active suicidality and is not in need of a one-to-one at this time. 3. The patient is encouraged to participate with group and milieu activities. 4. The patient will be seen by the treatment team on a daily basis to assess symptoms, side effects, and response to treatment. 5. The patient will be continued on lithium carbonate 600 mg twice daily. 6. Quetiapine 600 mg at bedtime and add 100mg daily or possibly higher as the patient is declining Depakote. 7. Trazodone 100 mg nightly as needed for insomnia may repeat 1. 8. Change lithium to Eskalith 900mg po nightly 9. Topical antibiotic to nose 10. Obtain records regarding CPAP 11. Anticipated length of stay is 10-14 days. Devonte Westfall MD Oct 16, 2016 21:22
[2016-10-16] MEDS ORDERED: Amoxicillin-Clav 500-125 mg Tablet PO SCH (22:00)
--- NOTE | 2016-10-16 22:43 | NUR ---
NURSING EVENING NOTE Patient has been mostly appropriate with staff this evening. Presents as disorganized but able to be redirected. Patient appears to be getting along better with his peers tonight. Did not want to take his medications until "later." Needed encouragement to take them at appropriate time. Will continue to monitor closely.
--- NOTE | 2016-10-17 06:05 | NUR ---
Nursing Note Scoop Driver 11pm to 7am Pt asleep at start of shift and remained asleep the duration of the shift. Monitored pt. with q 15 minute face checks for safety location and accountability.
[2016-10-17] MEDS: LORazepam 1 mg Tablet PO SCH ×3 (07:54→20:48)
[2016-10-17] MEDS: Mupirocin 2% 22 Gm Ointment TOPICAL SCH ×3 (07:54→20:49)
[2016-10-17] MEDS: Neomycin-Bacitracin-Polymyxin 15 Gm Ointment TOPICAL SCH ×4 (07:55→20:49)
[2016-10-17] MEDS: Fluticasone 0.05% 15 Spray/2 Gm 16 Gm Nasal Spray NOSTRIL SCH ×3 (07:58→20:47)
[2016-10-17] MEDS: DICLOFENAC 0.1% TOPICAL SCH (07:59)
[2016-10-17] MEDS: LORazepam 1 mg Tablet PO PRN ×2 (08:42→16:50)
[2016-10-17] MEDS: Amoxicillin-Clav 500-125 mg Tablet PO SCH ×3 (08:43→17:31)
[2016-10-17 10:00] VITALS: BP 154/99; PULSE 91; RESP 20
--- NOTE | 2016-10-17 11:00 | NUR ---
Behavior Pt. exhibited increased agitation/activity even after his SALTY lorazepam this morning. Additional PRN Lorazepam 1 mg was given which was helpful. Pt. was heard talking on a phone, "I'm going to kill him (his neighbor)." in a threatening tone, "Oh...this is the best place, like on a vacation."in a soothing tone. His mood is fluctuating, speech is rumbling and had difficulty to stay focus on one topic at a time. Poor impulse control.
[2016-10-17] MEDS: Magnesium Hydroxide 10 mL Oral Concentration PO PRN (12:33)
--- NOTE | 2016-10-17 13:11 | NUR ---
spiritual care: follow up short visit in common room. offered pt a prayer card which he added ohara of "logical thinking" as he asked for us to pray the prayers together. Pt also asked to receive communion from druze visitor; ([facility] visitors here each weekday; i can accompany visitor for communion visit on sunday) pt requested intercessory prayer for friends and was appreciative of visit and card.
--- NOTE | 2016-10-17 16:59 | PCM.PNMED ---
Subjective Date of Service Oct 17, 2016 Subjective Patient seen and examined. His hand is still swollen. He was a little confused today , said "enough on my mind today". Bp better today Exam Vital Signs Vital Sign - Last Date Time Temp Pulse Resp B/P Pulse Ox O2 Delivery O2 Flow Rate FiO2 10/17/16 10:00 35.5 91 20 154/99 10/11/16 14:26 100 Room Air Intake and Output 10/16/16 10/16/16 10/17/16 Cumulative From/Thru 15:00 23:00 07:00 10/11/16 10:02 - 10/11/16 17:28 Intake Total 1600 ml Output Total 1200 ml Balance 400 ml Intake Oral 1600 ml Output Urine Total 1200 ml # Voids 1 Exam General: NAD HEENT: NCAT Heart: RRR, no s3/s4 Lungs: CTA, no crackles or wheezes Ext: Right hand swollen. Psych: Normal mood and affect during interaction. Reasonable judgement. Neurological: No focal deficits Lab and Diagnostics Result Diagram: 10/16/16 0845 10/16/16 0845 X-Rays, CTs and MRIs IMPRESSION: No trauma found. Source of current pain is not seen. Mild soft tissue swelling is noted over the forefoot on the lateral projection. Dictated by: Bartolome Cardoza M.D. on 10/13/2016 at 21:17 Approved by: Bartolome Cardoza M.D. on 10/13/2016 at 21:18 --------- PROCEDURE: X-RAY RIGHT HAND, TWO VIEWS ([id number]) INDICATIONS: SWOLLEN, WEAK RIGHT HAND TECHNIQUE: 2 views of the hand(s) acquired. COMPARISON: None. FINDINGS: Bones: No fractures or dislocations. Carpal bones are normally aligned. No suspicious bony lesions. Soft tissues: No suspicious soft tissue calcifications. IMPRESSION: Mild soft tissue swelling but no gas in the soft tissues nor is there evidence of trauma or foreign body. Dictated by: Bartolome Cardoza M.D. on 10/13/2016 at 21:15 Approved by: Bartolome Cardoza M.D. on 10/13/2016 at 21:16 PROCEDURE: X-RAY THORACIC SPINE, 3 VIEWS INDICATIONS: pain TECHNIQUE: 3 views of the thoracic spine were acquired. COMPARISON: None. FINDINGS: Bones: No fractures or dislocations. No suspicious bony lesions. 12 pairs of ribs are noted, and appear intact where visualized. Soft tissues: No paravertebral stripe thickening. IMPRESSION: Moderate degenerative disc disease, no evidence of compression fracture or discitis/osteomyelitis. The paravertebral soft tissues appear normal on the frontal projection. Source of current symptoms is not seen. Assessment & Plan #Hypertension, uncontrolled: - - could be secondary to agitation -- patient on amlodipine -- cannot use lisinopril or diuretics as they interact with lithium -- was started on carvedilol, bp better today #Onchomycosis -- taken care of by podiatry, appreciate # Ingrown Toe nails on two halluxes: -- podiatry took care, appreciate it # R hand swelling/bruising: Appears to have hit an object with fist. Improving -- X-ray is ordered: Neg for fractures -- concern for cellulitis, started on augmentin -- there me a possibility of self inflicting injury -- Ice, elevate rest # Foot digit discoloration/ecchymoses resolved -- x-ray is ordered: neg for fractures -- Ice, elevate, rest # Deep Laceration over hand improving -- steri streps andare applied -- keep it clean and dry -- mupirocin ointment # Pain below C7 over the thoracic spine stable -- X-ray of thoracic spine: showed DJD -- Diclofenac gel Discussed the case with Dr. Westfall. Will sign off. If problems persist, please feel free to contact me. Steve Carson MD Oct 17, 2016 16:59
--- NOTE | 2016-10-17 17:27 | PCM.PNPSY ---
Subjective Date of Service Oct 17, 2016 Subjective The patient was angry last night swinging pillows in his room and hitting his mattress. This morning he is generally reasonably cooperative. He is requesting a scan of his head and reports having had a CT at [facility] at sometime in the past. He reports that the PACT team referred him there. He denies side effects to medications. The patient's tremor appears improved. The patient reported some sedation this morning from typing although shortly after medication time none was noted. Sleep: 7 hours Appetite: Good Suicidal and homicidal ideation: Denies Auditory hallucinations: Denies Visual hallucinations: Denies Other Psychotic Symptoms: Still some thought disorganization Anxiety: Denies Depression: Denies Current Medications Current Medications Amoxicillin/ Clavulanate Potassium 1 tab TIDWM PO Last administered on 10/17/16 12:34; Admin Dose 1 TAB; Start 10/16/16 at 19:39 Carvedilol 6.25 mg BIDWM PO Last administered on 10/17/16 07:55; Admin Dose 6.25 MG; Start 10/17/16 at 08:00 [place] Carbonate 450 mg HS ONCE PO Last administered on 10/16/16 20:50; Admin Dose 450 MG; Start 10/16/16 at 21:00; Stop 10/16/16 at 21:01; Status DC Lorazepam lorazepam 1-2mg po q6hr prn anxiety/agitation Q6H PRN PO Last administered on 10/17/16 16:50; Admin Dose 1 MG; Start 10/16/16 at 11:20 Neomycin/ Polymyxin/ Bacitracin 1 applic TID TOPICAL Last administered on 14:54; Admin Dose 1 APPLIC; Start 10/17/16 at 08:30 Quetiapine Fumarate 100 mg DAILY PO Last administered on 10/17/16 07:54; Admin Dose 100 MG; Start 10/17/16 at 08:30 Mental Status Exam Vital Signs Vital Signs Date Time Temp Pulse Resp B/P Pulse Ox O2 Delivery O2 Flow Rate FiO2 10/17/16 10:00 35.5 91 20 154/99 Appearance: Unkept Attitude: Pleasant, Cooperative Behavior: No unusual behavior Affect: Well Modulated/Appropriate Mood: Euthymic Thought Process/Associations: Goal Directed (generally), Loose, Tangential Speech Production: Normal Speech Rate: Normal Speech Articulation: Normal Thought Content: Perseveration Danger to Self/Suicidal Ideati: None Danger to Others: None Delusions: Paranoid Hallucinations: Auditory (Denies), Visual (Denies) Consciousness: Alert Orientation: Person, Place, Date, Situation Memory: Grossly Intact Estimate Intellectual Function: Average Basis for IQ estimate: Awareness current events, Word use/vocabulary, Educational history Attention/Concentration & Cogn: Impaired Insight: Limited Judgement: Limited Result Diagram: 10/16/16 0845 10/16/16 0845 Mental Health Plan The patient is a 46-year-old male with a history of schizoaffective disorder, bipolar type, who presents with decompensation having stopped taking his antipsychotic and one of his mood stabilizers while remaining on lithium. The patient appeared to have a slight demargination reaction with a white count of 17,000 and had a slightly elevated creatine kinase but had dropped the day following assessment in the emergency department. His lithium level had been 0.6 which indicated at least partial compliance. The patient is agreeable to restarting lithium and quetiapine. The patient is still somewhat disinhibited today and is agreeable to schedule benzodiazepine until more stable. Patient would prefer quetiapine scheduled at bedtime at his normal 600 mg dose. As the patient is taking lithium, use of NSAIDs such as aspirin is contraindicated, discussed again with patient. The patient is still intrusive with peers and is still disorganized at times and difficult to redirect. Consider further increase in quetiapine as the patient appears to have responded to 400 mg in the morning and 600 mg at bedtime with lithium treatment in the past. Prior to ordering an additional head CT, will contact [facility] regarding prior scans. [place] Union I 1. Schizoaffective disorder, bipolar type. 2. Alcohol use disorder in partial remission. 3. Cannabis use disorder. [place] II Deferred. [place] III Right hand edema and superficial lacerations, elevated creatinine kinase. [place] IV Moderate to severe. [place] V Global assessment of functionin. Treatments 1. The patient is admitted to the inpatient unit and will be provided a safe and secure environment. 2. The patient is denying current active suicidality and is not in need of a one-to-one at this time. 3. The patient is encouraged to participate with group and milieu activities. 4. The patient will be seen by the treatment team on a daily basis to assess symptoms, side effects, and response to treatment. 5. The patient will be continued on lithium carbonate 600 mg twice daily. 6. Quetiapine 600 mg at bedtime and add 100mg daily or possibly higher as the patient is declining Depakote. 7. Trazodone 100 mg nightly as needed for insomnia may repeat 1. 8. Change lithium to Eskalith 900mg po nightly 9. Topical antibiotic to nose 10. Obtain records regarding CPAP/CT scan 11. Anticipated length of stay is 10-14 days. Devonte Westfall MD Oct 17, 2016 17:27
--- NOTE | 2016-10-17 18:10 | NUR ---
Obs Dayshift Pt was restless, irritable, poor boundaries and destructive. Pt was drawing with a bendy pen on his tables and wall, pouring soap and water all over his lagunas, window, ceiling, etc. Pt requesting cleaning supplies, and stated that he is wanting to learn from housekeeping. Pt is disorganized, restless and constantly wanting to look into things and take things apart. Later pt was more understanding, calm, and helpful toward peers. Pt continues to be nonsensical, fidgeting and restless. Attending and participating in grps but still disorganized thought process. Going outside w/ peers, and much more appropriate out in the milieu. Showered, colored on shower lagunas w/ a crayon. 75-100% of meals
--- NOTE | 2016-10-17 21:48 | NUR ---
Nursing Note [phone] S: "This is your brother Juan Francisco, I am at [facility], Rm 220, the phone number is ". "I want you to call and let me know what the plan is or you can forget it-and we won't be brothers anymore". "I won't take my medications tonight-I already told someone I wouldn't take anymore medications today and I don't lie". "There is no flag on that pole out there and today is the 17 of October, how hard could it be for someone to walk down the sidewalk and wave a flag?' "I am really pissed off about that and am getting really mad". O: Patient becoming increasingly focus and agitated that there is no flag on the flag pole. Patient went to his room and began throwing his mattress around and trashed his room. Security finally came up and explained to the patient why there was no flag and patient said he would not take any medications for the rest of the day unless a flag was put up. Rated anxiety 01/23, depression 10/23, denied hallucinations, SI/HI. A: Patient agitated, restless, belligerent at times. P: Monitor for response to treatment. Q 15 minute checks for safety. Follow plan of care. Addendum: 10/17/16 at 2247 by ADA HART RN PRN's Ativan 1 mg for anxiety 01/23. Not effective. Tylenol 650 mg for pain 10/23. Effective, no pain.
[2016-10-18] MEDS: LORazepam 1 mg Tablet PO PRN ×3 (00:01→14:49)
--- NOTE | 2016-10-18 05:53 | NUR ---
Nursing Note Stroke Program Coordinator 11pm to 7am Pt awake at start of shift, mood elevated, behavior bizarre, picking unseen objects off the lagunas, tapping on various pieces of furniture, walking around with shirt on head like a turbin, and flapping arms like a bird. Pt refused HS meds at scheduled time stating I will take them at 0001, which he did. On his way to bed he turned over large trash can in day room telling staff You clean that up. Its your job. Pt went to bed at 0100 and slept 4.75 hours Monitored pt with 15 minute face checks for safety, location and accountability
[2016-10-18] MEDS: Amoxicillin-Clav 500-125 mg Tablet PO SCH ×3 (08:26→17:07)
[2016-10-18] MEDS: LORazepam 1 mg Tablet PO SCH ×3 (08:27→21:29)
[2016-10-18] MEDS: Fluticasone 0.05% 15 Spray/2 Gm 16 Gm Nasal Spray NOSTRIL SCH ×2 (08:28→20:26)
[2016-10-18] MEDS: Mupirocin 2% 22 Gm Ointment TOPICAL SCH ×2 (08:44→20:25)
[2016-10-18] MEDS: Neomycin-Bacitracin-Polymyxin 15 Gm Ointment TOPICAL SCH ×3 (08:44→20:24)
[2016-10-18] MEDS: DICLOFENAC 0.1% TOPICAL SCH (08:45)
--- NOTE | 2016-10-18 12:54 | NUR ---
[id number]. nurs. S/O: "If I hold it like this I can pivot this way..... I had it up that does not help, aspirin and MJ that is best for anything." Pt out on unit, restless, disorganized, pressured, with hand wrapped in large heavy bed cover and holding his shoulder down with other hand explaining elaborate and hard to understand theory of why this method is helping swollen hand. Pt wanting a particular dose of aspirin c/o pain in hand and shoulder, already aware this med not advisable with his other med. Pt had covered his flooor ,lagunas windows and ceiling with soap other sticky substance and black smears on floor "it's from sliding when I dance see..(pt demonstrating,) Pt stating that he has no pxs with anxiety, depression, SI (stated to CM don't ever ask me that again) and no HI. Pt states he hears God's voice when needs to, and believes he is working for God and has written phrases in soap re. God on windows. Apparently pt has been destructive in this manner in room daily recently. Pt offered 1 mg of ativan at 1135 for pressured, intense, quickly irritable presentation with rambling tangential speech and restless disorganized and unpredictable behaviour. P:CNCP Addendum: 10/18/16 at 1336 by ABHIJIT BANDA RN Pt given MOM for constipation reports small hard stools over last week of so.
--- NOTE | 2016-10-18 13:32 | NUR ---
Obs Dayshift Pt is extremely disorganized, restless, delusional. Pt is constantly moving, fidgeting with things, textile touching lagunas, windows, pictures. Pt is making random, nonsensical statements and requests. Pt told housekeeping to "knock on his door and push it open to hit the portia to release the bees and they would come tell him to help clean" Pt is using soap to write on windows, lagunas and ceiling. States that he communicates w/ the lord and asks for guidance but doesn't always need it because the lord will tell him when he is ready. During a movie time pt got up hit the window, smashing a fly and then ate it "for protein". Poor ADL's, Good meals
[2016-10-18] MEDS: Magnesium Hydroxide 10 mL Oral Concentration PO PRN (13:34)
--- NOTE | 2016-10-18 16:02 | NUR ---
Healthcare Insurance Sales Agent/Counselor S:" The holy spirit speaks to me when needed." O: Patient was agitated when asked about SI, and yelled " please don't ask me that again, ever." Patient stated he only has HI when it is needed. He has auditory hallucinations of the holy spirit, "when needed", but no anxiety or depression. A: Patent was tangential and in his room "cleaning." He continued to be tangential throughout group. He is writing on his windows with soap, and attempting to "clean" with his bedpread out in the unit. P:Follow care plan and coordinate with outpatient providers.
--- NOTE | 2016-10-18 16:05 | NUR ---
spiritual care: follow/pt's request for eucharist accompanied eucharist visitor, Duran to unit and visit with pt in conf room. Pt eager, focused, engaged in prayer tutelage and participated in formal latter day prayer. Pt was fairly linear and calm in voice and manner during this part of the visit. He shared personal history and explanations about his spiritual path with more animation, urgency and rambling style. Pleasant and polite throughout. i will plan to accompany eucharistic visitor sunday morning (11ish) for visit with communion.
--- NOTE | 2016-10-18 22:20 | NUR ---
Shift note [id number] Pt continues with bizarre behaviors, anxiety, and demands. Pt c/o constipation and had received Milk of Mag x2 per EMAR. Pt states, " I have low testosterone and that causes me to have anger problems." "I need my testosterone checked." Pt also requested to change PRN Aspirin 650mg to 325mg instead. Continue to monitor mood changes, emotional well being and Q15 minute checks for safety. Care ongoing.
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
[2016-10-19] MEDS: LORazepam 1 mg Tablet PO PRN ×3 (03:08→22:46)
[2016-10-19] MEDS: Magnesium Hydroxide 10 mL Oral Concentration PO PRN (03:50)
[2016-10-19] MEDS: Benzocaine-Menthol Lozenge 2/Pkg PO PRN (03:50)
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
[2016-10-19] MEDS: Amoxicillin-Clav 500-125 mg Tablet PO SCH ×3 (07:45→17:35)
[2016-10-19] MEDS: LORazepam 1 mg Tablet PO SCH (07:46)
[2016-10-19] MEDS: Fluticasone 0.05% 15 Spray/2 Gm 16 Gm Nasal Spray NOSTRIL SCH ×2 (07:46→22:39)
[2016-10-19] MEDS: Neomycin-Bacitracin-Polymyxin 15 Gm Ointment TOPICAL SCH ×3 (07:47→20:30)
[2016-10-19] MEDS: Mupirocin 2% 22 Gm Ointment TOPICAL SCH ×2 (07:47→20:30)
[2016-10-19] MEDS: DICLOFENAC 0.1% TOPICAL SCH (07:56)
[2016-10-19 17:16] VITALS: BP 163/89; PULSE 88; RESP 16
--- NOTE | 2016-10-19 18:35 | NUR ---
[id number]. S/O: Pt continues to present with pressured hyperverbal tangential speech often returning to focusing on past experiences with family and dysfunction interactions. Pt on phone with [facility] CM and did not pause during extended period of recounting his perception of events that led to this hospitalization. Pt with bright affect, restless around unit, except when resting/sleeping on patio. Pt given sheets of paper in folder to discourage him from writing on windows in soap, and repeating inappropriate destructive tx of bedrm. Pt appeared to be less involved in this activity to day. pt reporting that he "not going to be fasting for awhile. Pt denying having any pxs. P:CNCP
--- NOTE | 2016-10-19 18:57 | NUR ---
[facility] Day Shift Pt appears to have difficulty maintaining behavioral control throughout the shift, occasionally requiring redirection from bizarre behavior. Pt affect appears mostly flat, preoccupied. Pt spends most of the shift pacing the unit, interacting with peers, and resting in his room. Pt speech occasionally appears nonsensical, bizarre. Pt behavior occasionally appears bizarre as well (ex. pt entered the hallway with his entire head/face wrapped in a sheet, blindly walking down the martin). Pt had some difficulty managing his behavior in the AM, posturing and throwing his personal items down the martin (pt lost his patience when his needs were not met in what he deemed a timely manner). Pt is mostly appropriate with staff and peers when active on the unit, but is occasionally intrusive/inappropriate and requires redirection. Pt attended community meeting in the AM and group activities throughout the shift. Pt has attended all meals at this time and has eaten approx 100% of all meals.
--- NOTE | 2016-10-19 23:52 | PROG NOTE ---
[address] [address] PROGRESS NOTE PATIENT: LONG BRANDT : 1970 MR#: [id number] ADMIT: 10/11/2016 JOB ID: [id number] DATE: 10/20/2016 SUBJECTIVE: The patient spent much of his day on the phone reportedly with the insurance company trying to adjust both his insurance and have his brother assist him with his automobile which is in impound. He reported that a police superintendent will be calling at 6 in the morning to address the issue. He reported excessive sedation this morning but is unclear whether it was secondary to lorazepam or quetiapine. He does not appear sedated at this time. He denies any particular pain issues. He reports that he is still upset with the [facility] team and would like to go to [facility]. He reports the need to obtain his CPAP machine and requests aspirin twice a day. Sleep: 2.75 hours. Appetite: "Decent." He denies suicidal or homicidal ideation, auditory or visual hallucinations. Anxiety is reported as "pretty good" and depression is denied. MENTAL STATUS EXAMINATION: Appearance: The patient is somewhat disheveled and has moderate body odor. Behavior: The patient is rather loquacious and difficult to redirect and otherwise is cooperative with the evaluation. Speech: Moderate pressure with normal tone and volume. Mood: "Pretty good." Affect: Restricted but appropriate. Content of thought: Denies suicidal or homicidal ideation, auditory or visual hallucinations. Thought processes: Circumstantial and difficult to redirect and interrupts. Insight and judgment: Impaired. Memory and concentration: Impaired. Orientation: Oriented to person, place, date and situation. Sensorium: Intact. DIAGNOSES: 1. Schizoaffective disorder. 2. Marijuana use disorder. PLAN: 1. Continue medications as ordered except for discontinue lorazepam. 2. Increase aspirin frequency to b.i.d., having informed the patient of the possibility for possible lithium interaction and to watch for side effects. 3. The patient would like to contact the [facility] regarding a need for a renewed license. 4. The patient reports receiving medications from [email or web address] and stated that he had been receiving testosterone there. 5. Anticipated length of stay is 7-10 days. 6. Obtain outside records from [facility] in [facility].
--- NOTE | 2016-10-20 05:19 | NUR ---
OBSERVATIONS Pt displayed bizarre behavior, insisting on wiping down, with water and paper towels, surfaces in the group room as well as his own room stating that he was riddled with infection and that he could make everyone sick. Pt at times is difficult to redirect, speech can be challenging to follow. Toward the end of the evening pt was visibly anxious, darting around the room, frantically and poorly attending to tasks such as brushing teeth, picking up the group room, and cleaning up pt room. Pt reported anxiety which was relayed to RN. Pt was recorded asleep at 0000 and slept through the night. Maintained Q15 safety check as directed.
--- NOTE | 2016-10-20 05:20 | NUR ---
nursing, nights, 11-7 s/o- has appeared to sleep without interruption after midnight during q 15 minute assessments. a- improved sleep, no apparent distress. p- monitor behavior/emotional state, quality, times and amount of sleep, use and effect of medication. alban
[2016-10-20] MEDS: Amoxicillin-Clav 500-125 mg Tablet PO SCH ×3 (07:40→17:20)
[2016-10-20] MEDS: Fluticasone 0.05% 15 Spray/2 Gm 16 Gm Nasal Spray NOSTRIL SCH ×2 (07:41→22:27)
[2016-10-20] MEDS: Benzocaine-Menthol Lozenge 2/Pkg PO PRN (07:45)
[2016-10-20] MEDS: DICLOFENAC 0.1% TOPICAL SCH (08:30)
[2016-10-20] MEDS: Neomycin-Bacitracin-Polymyxin 15 Gm Ointment TOPICAL SCH (08:30)
[2016-10-20] MEDS: Mupirocin 2% 22 Gm Ointment TOPICAL SCH ×2 (08:46→22:27)
[2016-10-20] MEDS: hydrOXYzine Pamoate 25 mg Capsule PO PRN ×2 (08:46→22:28)
[2016-10-20 09:29] VITALS: BP 154/100; PULSE 95; RESP 18
--- NOTE | 2016-10-20 11:47 | NUR ---
Nursing Note [id number] Behavior S/O: Pt making odd hand & arm gestures in the martin. Pt seen talking to himself. Pt became agitated when staff name badges are turned around. Pt requesting permission for small things like to throw away a medication cup. Pt picked up popcorn off the floor & ate it. He also ate from the garbage can before staff could stop him. Pt has refused to eat breakfast & lunch stating, "I'm not hungry." A: Pt appears to be responding to internal stimuli. He has difficulty managing his mood. P: Provide supportive environment. Monitor medications & effects.
--- NOTE | 2016-10-20 13:49 | NUR ---
spiritual care: follow up accompanied eucharistic visitor Saranya for communion visit. pt received communion, participated in prayers and seemed to appreciate listening attention. Content rambly, included personal history and self-identity, relationships, pt concerned with "rules" of buddhist practise and seemed to enjoy the ritual of repeated prayer.
[2016-10-20] MEDS: diphenhydrAMINE 25 mg Capsule PO PRN ×2 (16:48→22:29)
[2016-10-20] MEDS: LORazepam 1 mg Tablet PO PRN (17:40)
--- NOTE | 2016-10-20 18:44 | PCM.PNPSY ---
Subjective Date of Service Oct 20, 2016 Subjective Patient asking to leave and feeling that he is pretty to go home. He states he is "doing God's work. Praying on it." The patient's hand is swollen over the right lateral aspect. The patient requests Benadryl for itching. The patient also reports constipation. Sleep: 6 hours, "like a baby." Appetite: Good Suicidal and homicidal ideation: Denies Auditory hallucinations: Denies Visual hallucinations: Denies Other Psychotic Symptoms: Religiously preoccupied, talking to self Anxiety: "Pretty high" Depression: "All over" Current Medications Current Medications Aspirin 650 mg BID PRN PO Last administered on 10/20/16 07:45; Admin Dose 650 MG; Start 10/19/16 at 18:00 Aspirin 650 mg DAILY PRN PO Last administered on 10/19/16 08:30; Admin Dose 650 MG; Start 10/18/16 at 19:05; Stop 10/19/16 at 17:59; Status DC Mental Status Exam Appearance: Unkept Attitude: Pleasant, Cooperative Behavior: Overtly anxious (requesting discharge as he may be behavioral innapropriate if he were to stay) Affect: Restricted Mood: Irritable (Mild) Thought Process/Associations: Goal Directed (generally), Loose (at times), Tangential (at times) Speech Production: Normal Speech Rate: Normal Speech Articulation: Normal Thought Content: Taoist preoccupation, Suspicious, Perseveration Danger to Self/Suicidal Ideati: None Danger to Others: None Delusions: Paranoid (Endorses) Hallucinations: Auditory (Denies), Visual (Denies) Consciousness: Alert Orientation: Person, Place, Date, Situation Memory: Grossly Intact Estimate Intellectual Function: Average Basis for IQ estimate: Awareness current events, Word use/vocabulary, Educational history Attention/Concentration & Cogn: Impaired Insight: Limited Judgement: Limited Result Diagram: 10/16/16 0845 10/16/16 0845 Mental Health Plan The patient is a 46-year-old male with a history of schizoaffective disorder, bipolar type, who presents with decompensation having stopped taking his antipsychotic and one of his mood stabilizers while remaining on lithium. The patient appeared to have a slight demargination reaction with a white count of 17,000 and had a slightly elevated creatine kinase but had dropped the day following assessment in the emergency department. His lithium level had been 0.6 which indicated at least partial compliance. The patient was agreeable to restarting lithium and quetiapine. The patient was noted to be praying loudly before the team entered and the room had been stripped to bare mattress on bed. The patient's hand was noted to be perisistenly swollen with area of lateral inflammation. Medicine contacted who ordered MRI hand which found the following: No definite evidence of osteomyelitis; No definite abscess collection in the absence of intravenous contrast. There is suggestion of phlegmon in the hand dorsal to the 4th and 5th metacarpals; Peritendinitis along the extensor tendons dorsally. The patient appears less irritable overall with discontinuation of scheduled benzodiazepine, but appears more internally pre-occupied. Patient is declining Depakote and had previously required 400mg daily and 600mg nightly of quetiapine with lithium to address symptoms. Patient stated today that he only wanted lithium but did eventually agree to quetiapine. Recommend continued titration of am quetiapine. Medicine will follow-up with patient on 10/21/16 per their report. [place] Trent[place] I 1. Schizoaffective disorder, bipolar type. 2. Alcohol use disorder in partial remission. 3. Cannabis use disorder. [place] II Deferred. [place] III Right hand edema and superficial lacerations, elevated creatinine kinase (resolving). [place] IV Moderate to severe. [place] V Global assessment of functionin. Treatments 1. The patient is admitted to the inpatient unit and will be provided a safe and secure environment. 2. The patient is denying current active suicidality and is not in need of a one-to-one at this time. 3. The patient is encouraged to participate with group and milieu activities. 4. The patient will be seen by the treatment team on a daily basis to assess symptoms, side effects, and response to treatment. 5. The patient will be continued on Eskalith 900mg nightly. As patient insists on using aspirin on discharge will not raise back to 600mg po bid but will follow-up blood level on 10/22/16 6. Quetiapine 600 mg at bedtime and add 200mg daily and possibly higher as the patient is declining Depakote and previously required 400mg daily and 600mg nightly 7. Trazodone 100 mg nightly as needed for insomnia may repeat 1. 8. Aspirin 650mg po twice a day when necessary. Discussed limiting as the patient is on lithium. 9. Obtain records regarding CPAP 10. MRI and hospitalists follow-up. 11. Diphenhydramine for itching. 12. Metamucil for constipation. 13. Anticipated length of stay is 10-14 days. Devonte Westfall MD Oct 20, 2016 18:44
[2016-10-20] MEDS ORDERED: diphenhydrAMINE 50 mg Capsule PO PRN (18:45)
--- NOTE | 2016-10-20 19:05 | NUR ---
[facility] Day Shift Pt continues to have difficulty maintaining behavioral control throughout the shift, occasionally requiring redirection from bizarre behavior. Pt affect appears mostly flat, preoccupied. Pt spends most of the shift pacing the unit, interacting with peers, and resting in his room. Pt speech occasionally appears nonsensical, bizarre. Pt behavior occasionally appears bizarre as well (ex. pt entered the hallway with his entire head/face wrapped in a sheet, blindly walking down the martin, using lotion to write on [place]). Pt is mostly appropriate with staff and peers when active on the unit, but is occasionally intrusive/inappropriate and requires redirection, even appearing antagonistic with some peers. Pt attended community meeting in the AM, but was unable to participate in group activities appropriately. Pt has attended all meals at this time and has eaten approx 100% of all meals.
--- NOTE | 2016-10-20 19:10 | NUR ---
MRI Patient down 1800 for MRI of right hand accompanied by nurse and security. Patient given 2mg Ativan 1745. Tolerated procedure well, return to unit 1905.
--- NOTE | 2016-10-20 19:50 | DRSVH ---
PROCEDURE: MRI HAND RIGHT WITHOUT CONTRAST ([id number]) INDICATIONS: right hand cellulitis, concern for abscess TECHNIQUE: Noncontrast coronal T1 spin echo and T2 fast spin echo with fat saturation, axial proton density fast spin echo and T2 fast spin echo with fat saturation, sagittal T1 spin echo and STIR through the hand and fingers. Intravenous contrast was unable to be administered due to patient's limited ability to cooperate. COMPARISON: [facility], CR, XR HAND 2VW RT, 10/13/2016, 20:54. FINDINGS: Image quality: There is motion artifact limiting evaluation. Bones: There is a mildly impacted fracture of the lunate with associated bone marrow edema. There i s also mild subchondral edema with the adjacent distal radius. There is mild edema in the volar aspe ct of the distal triquetrum likely reflecting degenerative change. No definite bony erosions or crispin ical disruption to suggest osteomyelitis. Soft tissues: There is extensive dorsal subcutaneous edema in the hand and distal wrist consistent w ith history of cellulitis. No discrete fluid collection is identified an abscess but evaluation is l imited in the absence of intravenous contrast. Heterogeneous soft tissue thickening along the dorsal aspect of the 4th and 5th metacarpals proximally is suggestive of phlegmon. There is peritendinous edema along the extensor tendons dorsally consistent with peritendinitis. There is mild edema also n oted within the lumbrical muscles between the 4th and 5th metacarpals compatible with myositis. IMPRESSION: 1. Limited study due to motion artifact and absence of intravenous contrast. 2. No definite evidence of osteomyelitis. 3. No definite abscess collection in the absence of intravenous contrast. There is suggestion of ph legmon in the hand dorsal to the 4th and 5th metacarpals. 4. Peritendinitis along the extensor tendons dorsally. Dictated by: Eduin Traylor M.D. on 10/20/2016 at 19:39 Approved by: Eduin Traylor M.D. on 10/20/2016 at 19:48
--- NOTE | 2016-10-20 20:22 | NUR ---
general farm manager/Counselor: S: "I have to get better so I can take care of my brother." O: Patient slept 6 hours last night per staff. Patient denies S/I and H/I. He also denies auditory and visual hallucinations. Depression is "all over" and anxiety is "pretty high." A: Patient is cooperative, unkept, euthymic, loose, tangential, paranoid, limited insight, limited judgment. P: Follow care plan, coordinate with out-patient providers.
[2016-10-20] MEDS: Bacitracin Zinc-Polymyxin B 30 Gm Ointment TOPICAL SCH (20:30)
[2016-10-21] MEDS: Magnesium Hydroxide 10 mL Oral Concentration PO PRN (00:08)
[2016-10-21] MEDS: LORazepam 1 mg Tablet PO PRN ×3 (00:08→15:03)
--- NOTE | 2016-10-21 05:07 | NUR ---
Nursing Noc "If I'm not out of here in 30 minutes there is going to be a big bang." Pt presenting very delusional with hostile tirades that he is going to be discharged 30 minutes after midnight. Pt taking medications with PRNs as prescribed. MRI of hand performed yesterday. Pt continues to have poor insight and present hypomanic. Continuing to monitor mood, behavior, and emotional state. Q15 minute safety checks performed throughout the night. Noted to have inadequate sleep of just 2.75 hours this shift. BHCP
[2016-10-21] MEDS: Amoxicillin-Clav 500-125 mg Tablet PO SCH (07:40)
[2016-10-21] MEDS: Fluticasone 0.05% 15 Spray/2 Gm 16 Gm Nasal Spray NOSTRIL SCH ×2 (07:40→20:30)
[2016-10-21] MEDS: Bacitracin Zinc-Polymyxin B 30 Gm Ointment TOPICAL SCH ×3 (07:41→20:30)
[2016-10-21] MEDS: Mupirocin 2% 22 Gm Ointment TOPICAL SCH ×2 (07:44→22:25)
[2016-10-21] MEDS: DICLOFENAC 0.1% TOPICAL SCH (08:30)
[2016-10-21] MEDS: diphenhydrAMINE 25 mg Capsule PO PRN ×2 (09:02→20:32)
[2016-10-21] MEDS: hydrOXYzine Pamoate 25 mg Capsule PO PRN (09:03)
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
--- NOTE | 2016-10-21 11:40 | NUR ---
Day shift Nursing note-Mood/anxiety/SI/Appetite S/O-"I need my meds...you are not organized...there is going to be trouble if you do not release me by midnight unless there are children around!" Pt. has been intrusive, flat and preoccupied. He does not relate well with his peers. Pt. had to redirected. He has a good appetite and reported he slept OK last night. He rated his anxiety at 7/10 and denies depression or SI. He requested and was given 2 mg. of Ativan PO at 0902, 50 mg. of Benadryl PO for itching of his hand at 0903, and 50 mg. of Vistaril PO at 0903. He was also given 325 mg. of aspirin PO at 0902 for pain in his hand rated at 8/10. His right hand is swollen and reddened. He did not want an ice pack for it. 1 hour later he reported he felt a little sleepy but he was much calmer and less intrusive. A-Hypomanic. Possible abscess to right hand. Psychosis. P-Monitor for safety per protocol. Assess efficacy of meds to manage target sxs. Encourage engagement in milieu if appropriate.
--- NOTE | 2016-10-21 11:56 | NUR ---
Subacute Nurse/Counselor S:" I'm just doing some cleaning." O: Patient denied any SI and HI, no AVH, rated his anxiety at a 3-4 and his depression at a 1. He slept for 3.25 hours last night. A: Patient was in his room "cleaning", and did not want staff to enter his room. He was waiting for lunch. Patient was cooperative but manic. P: Follow care plan and coordinate with outpatient providers.
[2016-10-21] MEDS: Trimethoprim-Sulfa 160 mg-800 mg Tablet PO SCH ×2 (13:22→22:22)
[2016-10-21] MEDS: Benzocaine-Menthol Lozenge 2/Pkg PO PRN (13:25)
--- NOTE | 2016-10-21 18:56 | DRSVH ---
PROCEDURE: US EXTREMITY SONOGRAM LIMITED ([id number]) INDICATIONS: Right hand, concern for abscess. TECHNIQUE: Real-time scanning was performed of the right hand with image documentation. COMPARISON: None. FINDINGS: There is a 2.5 x 1.6 x 0.9 cm heterogeneous region within the radial aspect of the right barbour nd in the area of soft tissue swelling. This demonstrates hyperemia. There is no discrete fluid colle ction amenable to drainage. IMPRESSION: Findings most consistent with cellulitis and phlegmon. No abscess amenable to percutaneou s drainage. Dictated by: Negra Bland M.D. on 10/21/2016 at 18:52 Approved by: Negra Bland M.D. on 10/21/2016 at 18:54
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
--- NOTE | 2016-10-21 22:15 | NUR ---
Nurses Note evening Patient has been loud,obnoxious,grandiose, intrusive with peers and difficult to redirect. Patient has had increased edema in his right hand. A MRI and a sonogram were completed today with results of peritendinitis in extensor tendons without abscess formation. Patient was made aware of these results due to perseveration of "surgery." Patient has been threatening to not take his medications because he was "disrespected" by his peers. Will continue to encourage improved insight into illness and management of same. Addendum: 10/21/16 at 2225 by VALERIY JOSEPH RN Amended: Links added.
[2016-10-21 22:39] VITALS: BP 145/101; PULSE 78
--- NOTE | 2016-10-21 23:05 | NUR ---
Nursing, NOC shift + B/P Patient's blood pressure 145/101, pulse 78. Slight dizziness noted at time of assessment. Call to Dr. Cardoza to update, new order received to increase Coreg to 12.5mg PO BID. Patient updated on new order and this assembly instructions writer will give the Coreg when available from pharmacy. CTM for changes.
--- NOTE | 2016-10-22 06:23 | NUR ---
Nursing Note Registered Associate 7pm to 7am Pt out in milieu at start of shift, pacing, fidgeting, organizing, perseverating on his rights and entitlements. Pt became loud at one point but was easily redirectable. BP trend noted revealing a consistent upward trend. Order obtained for an increase in Coreg from 6.25mg BID to 12.5mg BID. Pt went to sleep at 2330 and slept until 0600 and slept uninterrupted throughout the shift. Monitored pt. q 15 minutes for safety, location and accountability.
[2016-10-22 06:24] VITALS: BP 140/80; PULSE 68
[2016-10-22] MEDS: Fluticasone 0.05% 15 Spray/2 Gm 16 Gm Nasal Spray NOSTRIL SCH ×2 (08:07→20:30)
[2016-10-22] MEDS: Trimethoprim-Sulfa 160 mg-800 mg Tablet PO SCH ×2 (08:07→22:34)
[2016-10-22] MEDS: Bacitracin Zinc-Polymyxin B 30 Gm Ointment TOPICAL SCH ×3 (08:08→20:30)
[2016-10-22] MEDS: Mupirocin 2% 22 Gm Ointment TOPICAL SCH ×2 (08:08→20:30)
[2016-10-22] MEDS: DICLOFENAC 0.1% TOPICAL SCH (08:08)
[2016-10-22 09:33] LABS: BASOPHILS % (AUTO) 1.4 % (0-3); EOSINOPHILS % (AUTO) 5.1 % (0-5); MONOCYTES % (AUTO) 10.6 % (4-12); Mean Corpuscular Hemoglobin 31.3 pg (27.0-35.0); Mean Corpuscular Volume 92.7 fL (81-100); Platelet Count 389 bil/L (150-400)
[2016-10-22] MEDS: hydrOXYzine Pamoate 25 mg Capsule PO PRN (10:46)
[2016-10-22] MEDS: LORazepam 1 mg Tablet PO PRN ×2 (10:46→15:48)
[2016-10-22] MEDS: Magnesium Hydroxide 10 mL Oral Concentration PO PRN (12:17)
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
[2016-10-22] MEDS: Benzocaine-Menthol Lozenge 2/Pkg PO PRN (14:44)
[2016-10-22] MEDS: diphenhydrAMINE 25 mg Capsule PO PRN (14:47)
--- NOTE | 2016-10-22 16:00 | NUR ---
[facility] Nursing S: "what do I do with this toxic waste in my hand, I need a biohazard bag" patient was referring to his bandage from a blood draw. O: Had patient spend time with the marketing writer in piano room so he could use his rosary beads to pray today, he was given a specific time that we could go and a time frame that we can stay. Pt was observed trying to put his fingers in the electrical outlets. Pt redirected several times about not touching the outlets. Pt also likes to play in the water in the main sink. Pt was asked not to continue to run the water and play in the sink, eventually breaking the handles off of the faucet. The water was subsequently turned off to the sink. Patient also has broken the door stop in his room, scratched the mirror in his bathroom. Put papers on the wall and ripped them off, taking with it the paint. He was talked to about not destroying property. Meds changed to Ativan 2mg Q2 hours. Pt became agitated when he was praying in the room with the marketing writer and he tore the rosary in half and put the cross in his mouth. The marketing writer asked him to take the cross out of his mouth. He became even more agitated, starting cussing at the marketing writer and was saying he can do what he wants with his rosary. Pt continued to yell out in the dining room with other staff. Pt ended up in seclusion. A: Pt has bizarre behaviors and is his appearance is bizarre as well. He has tied underwear on his head, and his socks that are "45s" pulled up to his knees. When asked what "45s" were, he said that they were "45 degree angles", then went on about what equals 45 and what can you multiply into 45. P: Follow plan of care, monitor behaviors. Monitor for side effects.
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
[2016-10-22] MEDS ORDERED: chlorproMAZINE 25 mg/mL Inj IM PRN (16:30)
[2016-10-22 17:12] VITALS: BP 140/80; PULSE 68
--- NOTE | 2016-10-22 17:30 | PCM.PNPSY ---
Subjective Date of Service Oct 22, 2016 Subjective I spent 30 minutes both reviewing treatment plan with our clinical team, interviewing the patient and providing supportive/educational psychotherapy. I spent more than 50% of the time counseling the patient. I reviewed the treatment plan with the him and discussed options available including the potential risks, benefits and side effects. Juan Francisco reports a marked improvement in thought organization and mood stability. Staff reports that he has been hyperactive and requiring a lot of redirection. He is attempting to participate in one-to-one unit and group activities but is struggling with frequent irritability and bizarre behavior. He easily takes offense at perceived insults. He slept 3 hours and denies psychotic symptoms review. He denies medication side effects. He was able to identify his medications and what they were used to treat. Current Medications Current Medications Bacitracin/ Polymyxin B Sulfate 1 applic TID TOPICAL Last administered on 20:30; Admin Dose 1 APPLIC; Start 10/20/16 at 20:30 Carvedilol 12.5 mg BIDWM PO Last administered on 10/22/16 08:08; Admin Dose 12.5 MG; Start 10/21/16 at 23:16 Chlorpromazine 100 mg Q2H PRN PO Last administered on 10/22/16 16:35; Admin Dose 100 MG; Start 10/22/16 at 16:25 Diphenhydramine HCl 25-50 MG Q6H PRN PO Last administered on 10/22/16 14:47; Admin Dose 50 MG; Start 10/20/16 at 18:51 Lorazepam lorazepam 1-2mg po q6hr prn anxie... Q2 PRN PO Last administered on 15:48; Admin Dose 2 MG; Start 10/22/16 at 16:30 Psyllium Husk 1 packet BID PO Last administered on 10/22/16 08:06; Admin Dose 1 PACKET; Start 10/20/16 at 20:30 Quetiapine Fumarate 200 mg DAILY PO Last administered on 10/22/16 08:07; Admin Dose 200 MG; Start 10/21/16 at 08:30 Trimethoprim/ Sulfamethoxazole 1 tablet BID PO Last administered on 10/22/16 08: 07; Admin Dose 1 TABLET; Start 10/21/16 at 11:15; Stop 10/22/16 at 13:39; Status DC Mental Status Exam Vital Signs Vital Signs Date Time Temp Pulse Resp B/P Pulse Ox O2 Delivery O2 Flow Rate FiO2 10/22/16 17:12 68 140/80 Appearance: Unkept Attitude: Pleasant, Cooperative Behavior: Overtly anxious (requesting discharge as he may be behavioral innapropriate if he were to stay) Affect: Restricted Mood: Irritable (Mild) Thought Process/Associations: Goal Directed (generally), Loose (at times), Tangential (at times) Speech Production: Normal Speech Rate: Normal Speech Articulation: Normal Thought Content: Christian preoccupation, Perseveration Danger to Self/Suicidal Ideati: None Danger to Others: None Delusions: Paranoid (Endorses) Hallucinations: Auditory (Denies), Visual (Denies) Consciousness: Alert Orientation: Person, Place, Date, Situation Memory: Grossly Intact Estimate Intellectual Function: Average Basis for IQ estimate: Awareness current events, Word use/vocabulary, Educational history Attention/Concentration & Cogn: Impaired Insight: Limited Judgement: Limited Result Diagram: 10/22/16 0845 10/16/16 0845 Mental Health Plan The patient is a 46-year-old male with a history of schizoaffective disorder, bipolar type, who presents with decompensation having stopped taking his antipsychotic and one of his mood stabilizers while remaining on lithium. Since admission to the unit he has been demonstrating manic behavior with distractibility, intrusiveness, and is requiring frequent redirection. Kemp Kemp I 1. Schizoaffective disorder, bipolar type. 2. Alcohol use disorder in partial remission. 3. Cannabis use disorder. Kemp II Deferred. Kemp III Right hand edema and superficial lacerations, elevated creatinine kinase (resolving). Kemp IV Moderate to severe. Kemp V Global assessment of functionin. Treatments Patient is being provided with a high degree of safety through our unit structure and active adult engagement provided by our mental health professionals, mental health technicians, psychiatric nurses and myself. We are focusing on developing improved coping skills and identifying stressors that may have led to current episode. We will attempt to: * Integrate into therapeutic groups, milieu and individual therapy. * Maintain in a closely monitored and structured unit * Provide low-stimulation environment * Obtain collateral data to assist in treatment planning * Assess degree of lability of affect and impulse control * Complete safety plan * Decrease frequency of relapse and need for re-hospitalization * Denies thoughts of harm to self and/or others * Establish a consistent sleep pattern * Medication effective in stabilization of mood and/or thought process * Reduce the risk of imminent harm to self and/or others by providing a safe environment * Tolerates medication without side effects Patient will be on the following psychiatric medications: Seroquel 200 mg daily and 600 at bedtime Trazodone 100 mg at bedtime Eskalith 900 mg at bedtime Patient's legal status Patient is on a 14 day involuntary treatment hold. Anticipated number of hospital days to achieve above goals: 10 Disposition: Home Zaire Cardoza MD Oct 22, 2016 17:30
--- NOTE | 2016-10-22 18:18 | PROG NOTE ---
[address] [address] PROGRESS NOTE PATIENT: LONG BRANDT : 1970 MR#: [id number] ADMIT: 10/11/2016 JOB ID: [id number] DATE: 10/21/2016 SUBJECTIVE: I met with patient for 30 minutes. I reviewed both the treatment plan and discussed his course with the treatment team. I interviewed the patient and provided both supportive and educational psychotherapy. I spent more than 50% of the time counseling the patient. I reviewed his treatment plan and discussed options available to him. The patient reported that he is feeling quite well and does not believe he needs to be on the inpatient unit. Staff reports he has been significantly manic with symptoms of distractibility, racing thoughts, and intrusive behaviors. He is attempting to participate in one-to-one and group activities. He slept 7 hours. He denied medication side effects. MENTAL STATUS EXAM: Client was malodorous and smelled strongly of urine. He wore his underwear on top of his head. His behavior was bizarre and restless. Attitude was evasive. Speech was rapid. Mood was euphoric. Affect was intense with high lability. Thought process was generally coherent. He thought process was quite concrete, however. He did not appear to be responding to internal stimuli. Thought content significant for multiple different themes of grandiose and delusional nature. He tended to have both paranoid and grandiose delusions. He denied suicidal or homicidal ideations. He denied auditory hallucinations. He was oriented to person, place, and date. Memory and attention were impaired. Insight and judgment markedly impaired. Impulse control impaired. Had a difficult time handling impulses of anger and hunger. Reality testing was mildly impaired. Competence to handle current stressors: Is currently being overwhelmed. DIAGNOSIS: Client is a 46-year-old, white male, with schizoaffective disorder, bipolar type, who presents after decompensating after stopping taking his antipsychotics and mood stabilizers. Since admission to the unit, he has demonstrated ongoing manic behavior with distractibility, intrusiveness, and requires frequent redirections. He has been medication compliant. Wilson I. 1. Schizoaffective disorder, bipolar type. 2. Alcohol use disorder, post remission. 3. Cannabis use disorder. Wilson II. Defer. Wilson III. Right hand edema and superficial lacerations. Wilson IV. Moderate. Wilson V. Current Global Assessment of Functioning equal to 35. PLAN: Recommend client be admitted to our unit and be provided with a high degree of safety through the structure and active adult engagement provided by our staff. Will attempt to help him develop improved coping skills and identify stressors that may have led to current episode. Will attempt to integrate into therapeutic groups and maintain and closely monitor in a structured unit. Will work to develop a medication regimen effective in stabilizing sleep, mood and thought processes. PSYCHIATRIC MEDICATIONS: 1. Seroquel 200 in the morning, 600 at night. 2. Trazodone 100 h.s. 3. Eskalith 900 h.s. The patient's legal status: Client is on a 14-day MR. Anticipated number of hospital days to achieve goals: Ten. DISPOSITION: Home.
--- NOTE | 2016-10-22 18:35 | NUR ---
Pt was given 2nd dose of Thorazine 100mg PO Pt then said to RN " I gotta do what I gotta do, you know that" Pt remains agitated.
[2016-10-22] MEDS ORDERED: chlorproMAZINE 25 mg/mL Inj IM ONE (19:50)
--- NOTE | 2016-10-22 21:20 | NUR ---
Observations 0900 - 2130 Pt affect and mood was labile, intrusive, intense, inappropriate at times, scattered, delusional and religiously preoccupied. Pt was pleasant, polite and cooperative early in the day but became very argumentative, challenging staff and confrontational in the afternoon. Pt speech was rambling and rapid. Pt eye contact was ok. Pt ate snack. Pt paced the hallway, was busy on the unit and social during the day. Pt attended community meeting and set a daily goal. Pt was talking with RN in group room and became very agitated. Pt came out and started yelling at staff and was unable to be redirected. Pt was placed in seclusion at 1615. Pt was observed every 15 minutes through the shift as ordered.
[2016-10-22 22:48] VITALS: BP 111/71; PULSE 64; RESP 16
--- NOTE | 2016-10-23 00:15 | NUR ---
Seclusion Note 230-Change of shift- Received Pt in seclusion at change of shift on 10/22 @ 2300. Pt lying in bed, was given water and thorazine 100mg po 2234 by off going RN. He was pleasant and informed that although staff could not speak with him through the intercom he could verbally make his needs known and staff would hear him and respond. Urinal emptied. After the incident this evening in which pt broke through seclusion room door and destroyed computer and phone, X-rays of hand, ankle, chest, leg, and elbow were done. Results pending. 4 hour Seclusion Renewal 0015 - Seclusion order continued at 0015, per Dr. Cardoza. Pt remains labile, unpredictable and is at high risk for violence given absence of sustained behavioral control and lack of insight into episode last shift in which, without warning he jumped up from seclusion bed, kicked open the seclusion room door and ripped computer and phone off the wall in the outer room. Pt is resting quietly in bed at this time. Addendum: 10/23/16 at 0352 by HOLLI RICHARDSON RN Amended: Links added. Addendum: 10/23/16 at 0356 by HOLLI RICHARDSON RN 2 hour nursing seclusion assessment 0215 Pt awake at 0015 checking door, running hand around frame, becoming more hyperactive and bizarre with time, i.e pacing, crawling on the floor, cleaning floor with hands, praying loudly. Given Pt had received Thorazine 100mg po at 2235 with little relief. In order to help Pt go to sleep and prevent another incident like the previous one, additional prns were given. Prior to administering prns, VS taken 144/98, p 98, and T/C made to pharmacist Van to review available prns and discuss potential contraindications. She reported that there is a potential for an increase in QT wave but since pt does not have cardiac issues except for a managed high blood pressure, it would be ok to give the following medications together; Thorazine 100mg po, Ativan 2mg po, Trazadone 100mg, and Seroquel 100mg. Security present when medications administered which pt. took without incident. Fluids and snack provided, urinal emptied, and bathroom offered but declined. Addendum: 10/23/16 at 0407 by HOLLI RICHARDSON RN 4 hour Seclusion Renewal 0415 After taking medications pt continued to pace and engage in bizarre bx such as smacking linens against wall, walking around his bed while tapping on the mattress etc. At approx. 0330 pt. went to sleep, could be heard snoring loudly, even and unlabored. Seclusion order continued. Monitoring of pts. physical and mental status ongoing. Addendum: 10/23/16 at 0706 by HOLLI RICHARDSON RN 614 -2 hour Nursing Assessment - Pt has been sound asleep since 033 after receiving medication to help manage increasing agitation and decrease the likely paiz of another violent and destructive outburst from occurring. Ongoing 1:1 observation using AV monitoring.
--- NOTE | 2016-10-23 01:26 | NUR ---
Observations 1900 to 0700 At start of shift pt was in seclusion due to behavior on previous shift. Pt was pacing room and testing door. While watching video monitor, pt is observed kicking seclusion door open and immediately going to computer and phone in the seclusion anteroom and tearing from wall. Staff notified once door was kicked open and a code Tello was call. Please see other staffs notes for further detail. Pt did report to this commercial real estate underwriter pain in elbow and ribs when delivering snacks to pt and RN was notified. Pt offered several snacks and water. Pt appears internally preoccupied, religiously focused. Pt is pressured, labile and manic.
[2016-10-23] MEDS: LORazepam 1 mg Tablet PO PRN ×4 (01:53→20:55)
[2016-10-23 02:08] VITALS: BP 144/98; PULSE 98
[2016-10-23] MEDS: Trimethoprim-Sulfa 160 mg-800 mg Tablet PO SCH ×2 (07:36→20:55)
[2016-10-23] MEDS: Fluticasone 0.05% 15 Spray/2 Gm 16 Gm Nasal Spray NOSTRIL SCH ×2 (07:37→21:52)
[2016-10-23] MEDS: Bacitracin Zinc-Polymyxin B 30 Gm Ointment TOPICAL SCH ×3 (07:40→20:30)
[2016-10-23] MEDS: Mupirocin 2% 22 Gm Ointment TOPICAL SCH ×2 (07:40→20:30)
[2016-10-23 08:00] VITALS: BP 100/60; PULSE 88; RESP 16
[2016-10-23 08:10] VITALS: BP 100/60; PULSE 88; RESP 18
--- NOTE | 2016-10-23 08:27 | DRSVH ---
PROCEDURE: X-RAY RIGHT HAND, MINIMUM THREE VIEWS ([id number]) INDICATIONS: PATIENT KICKED/HIT DOOR IN SECLUSION AREA TECHNIQUE: 3 views of the hand(s) acquired. COMPARISON: None. FINDINGS: Bones: No fractures or dislocations. Carpal bones are normally aligned. No suspicious bony lesions . Partially visualized distal ulna fixation. Soft tissues: No suspicious soft tissue calcifications. IMPRESSION: No visualized acute fracture or dislocation. However, if clinical concern and/or pain pe rsist, short interval imaging followup in 7-10 days is recommended, as occult injury cannot be defini tively excluded. Dictated by: Nu Riddle M.D. on 10/23/2016 at 8:25 Approved by: Nu Riddle M.D. on 10/23/2016 at 8:26
--- NOTE | 2016-10-23 08:28 | DRSVH ---
PROCEDURE: X-RAY RIGHT ELBOW, TWO VIEWS ([id number]) INDICATIONS: PATIENT KICKED/HIT DOOR IN SECLUSION AREA TECHNIQUE: 3 views of the elbow were acquired. COMPARISON: None. FINDINGS: Bones: No fractures or dislocations. No suspicious bony lesions. Soft tissues: No elbow joint effusion. No suspicious soft tissue calcifications. IMPRESSION: No visualized acute fracture or dislocation. However, if clinical concern and/or pain pe rsist, short interval imaging followup in 7-10 days is recommended, as occult injury cannot be defini tively excluded. Dictated by: Nu Riddle M.D. on 10/23/2016 at 8:26 Approved by: Nu Riddle M.D. on 10/23/2016 at 8:26
--- NOTE | 2016-10-23 08:29 | DRSVH ---
PROCEDURE: X-RAY LEFT TIBIA/FIBULA, TWO VIEWS ([id number]) INDICATIONS: PATIENT KICKED DOOR/SWELLING/BRUISING TECHNIQUE: 2 views of the tibia and fibula were acquired. COMPARISON: None. FINDINGS: Bones: No fractures or dislocations. No suspicious bony lesions. Soft tissues: No suspicious soft tissue calcifications or masses. IMPRESSION: No visualized acute fracture or dislocation. However, if clinical concern and/or pain pe rsist, short interval imaging followup in 7-10 days is recommended, as occult injury cannot be defini tively excluded. Dictated by: Nu Riddle M.D. on 10/23/2016 at 8:26 Approved by: Nu Riddle M.D. on 10/23/2016 at 8:26
[2016-10-23] MEDS: DICLOFENAC 0.1% TOPICAL SCH (09:12)
--- NOTE | 2016-10-23 09:42 | DRSVH ---
PROCEDURE: X-RAY CHEST ONE VIEW, PORTABLE ([id number]) INDICATIONS: C/O rib pain TECHNIQUE: One view of the chest was acquired. COMPARISON: Thoracic spine 10/13/2016. FINDINGS: Surgical changes and devices: None. Lungs and pleura: No pleural effusions or pneumothorax. Lungs are clear. Mediastinum: Mediastinal contours appear normal. Slight tracheal deviation to the right is unchanged . Heart size is normal. Bones and chest wall: No suspicious bony lesions. Overlying soft tissues appear unremarkable. IMPRESSION: 1. No visible rib abnormality. No pneumothorax. CT chest imaging may be of further value if symptoms continue. 2. No acute cardiopulmonary abnormality. Dictated by: Aakash Arellano M.D. on 10/23/2016 at 9:37 Approved by: Aakash Arellano M.D. on 10/23/2016 at 9:40
[2016-10-23 10:00] VITALS: BP 122/78; PULSE 81; RESP 16
[2016-10-23] MEDS: diphenhydrAMINE 25 mg Capsule PO PRN ×2 (11:16→22:35)
--- NOTE | 2016-10-23 12:16 | PCM.PNPSY ---
Subjective Date of Service Oct 23, 2016 Subjective I spent 30 minutes both reviewing treatment plan with our clinical team, interviewing the patient and providing supportive/educational psychotherapy. I spent more than 50% of the time counseling the patient. I reviewed the treatment plan with the him and discussed options available including the potential risks, benefits and side effects. Juan Francisco reports an improvement in thought organization and mood stability. Staff reports that he has been cooperative in nonviolent for the past 4 hours. Last night he became agitated and threatening. He required a show of force and locked seclusion. He continued to escalate to the point where he tore the door off the seclusion room and went on a rampage breaking computer screens and computers. He is struggling with frequent irritability but is no longer exhibiting bizarre behavior. He easily takes offense at perceived insults. He slept 3 hours and denies psychotic symptoms review. He denies medication side effects. He was able to identify his medications and what they were used to treat. Current Medications Current Medications Carvedilol 12.5 mg BIDWM PO Last administered on 10/23/16 10:00; Admin Dose 12.5 MG; Start 10/21/16 at 23:16 Chlorpromazine 100 mg Q2H PRN PO Last administered on 10/23/16 11:44; Admin Dose 100 MG; Start 10/22/16 at 16:25 Chlorpromazine HCl 100 mg Q2H PRN IM Last administered on 10/22/16 19:26; Admin Dose 100 MG; Start 10/22/16 at 16:30 Lorazepam lorazepam 1-2mg po q6hr prn anxie... Q2 PRN PO Last administered on 11:44; Admin Dose 2 MG; Start 10/22/16 at 16:30 Trimethoprim/ Sulfamethoxazole 1 tablet BID PO Last administered on 10/23/16 07 :36; Admin Dose 1 TABLET; Start 10/22/16 at 20:30; Stop 10/27/16 at 11:15 Mental Status Exam Appearance: Unkept Attitude: Pleasant, Cooperative Behavior: Overtly anxious (requesting discharge as he may be behavioral innapropriate if he were to stay) Affect: Restricted Mood: Irritable (Mild) Thought Process/Associations: Goal Directed (generally), Loose (at times), Tangential (at times) Speech Production: Normal Speech Rate: Normal Speech Articulation: Normal Thought Content: Mormonism preoccupation, Perseveration Danger to Self/Suicidal Ideati: None Danger to Others: None Delusions: Paranoid (Endorses) Consciousness: Alert Orientation: Person, Place, Date, Situation Memory: Grossly Intact Estimate Intellectual Function: Average Basis for IQ estimate: Awareness current events, Word use/vocabulary, Educational history Attention/Concentration & Cogn: Impaired Insight: Limited Judgement: Limited Result Diagram: 10/22/16 0845 Mental Health Plan The patient is a 46-year-old male with a history of schizoaffective disorder, bipolar type, who presents with decompensation having stopped taking his antipsychotic and one of his mood stabilizers while remaining on lithium. Since admission to the unit he has been demonstrating manic behavior with distractibility, intrusiveness, and is requiring frequent redirection. On 7 9 PM he became agitated refused to follow redirections and was threatening and posturing in an aggressive manner. He has been in seclusion for most of the night and required by mouth and IM Thorazine in order to calm threatening behavior. This more this morning he is markedly improved is cooperative and has been easily redirected. Jackson Jackson I 1. Schizoaffective disorder, bipolar type. 2. Alcohol use disorder in partial remission. 3. Cannabis use disorder. Jackson II Deferred. Jackson III Right hand edema and superficial lacerations, elevated creatinine kinase (resolving). Jackson IV Moderate to severe. Jackson V Global assessment of functionin. Treatments Patient is being provided with a high degree of safety through our unit structure and active adult engagement provided by our mental health professionals, mental health technicians, psychiatric nurses and myself. We are focusing on developing improved coping skills and identifying stressors that may have led to current episode. We will attempt to: * Integrate into therapeutic groups, milieu and individual therapy. * Maintain in a closely monitored and structured unit * Provide low-stimulation environment * Obtain collateral data to assist in treatment planning * Assess degree of lability of affect and impulse control * Complete safety plan * Decrease frequency of relapse and need for re-hospitalization * Denies thoughts of harm to self and/or others * Establish a consistent sleep pattern * Medication effective in stabilization of mood and/or thought process * Reduce the risk of imminent harm to self and/or others by providing a safe environment * Tolerates medication without side effects Patient will be on the following psychiatric medications: DC Seroquel 200 mg daily and 600 at bedtime DC Trazodone 100 mg at bedtime Eskalith 900 mg at bedtime Thorazine 100 mg every morning, 100 mg at noon, 200 mg at bedtime Thorazine 100 mg by mouth or IM every 2 hours as needed for severe agitation or threatening behavior Klonopin 0.5 mg 3 times a day Patient's legal status Patient is on a 14 day involuntary treatment hold. Anticipated number of hospital days to achieve above goals: 10 Disposition: Home Zaire Cardoza MD Oct 23, 2016 12:16
--- NOTE | 2016-10-23 12:18 | NUR ---
Nursing: Seclusion: 0800 Suresh is lying in bed with head to toe covered in a blanket. He was snoring at 0730 but by 0800 had wakened and requested water. Able to move all extremities. Respirations non-labored. Allowed fiction and nonfiction writer prose to check BP, pulse and resp rate. BP per manual cuff was 100/60. 0830 AM Carvedilol and Amlodipine withheld. Pt accepted PRN po Thorazine 100 mg and Ativan 2 mg, as well as scheduled Seroquel 100 mg po. Anti slip socks provided as requested. 1400 ml urinal emptied. Skin assessment: Left lower leg over reid, midway between ankle and knee: swollen bruised area. Left Foot: Bruise visible on lateral area anterior to ankle. Right hand: Dorsal area swollen and tender. Right forearm: Swollen firm bruised area Right reid: Swollen bruised area anterior reid close to knee. Cooperative with directions by fiction and nonfiction writer prose. Debriefed that he will be able to leave seclusion area if he is able to follow directions, take po meds as offered, and demonstrate behavior that will be appropriate for open unit. 0815: Seclusion continued until effectiveness of PRN meds can be assessed. 0830: Pt ate all breakfast. Speech: mumbles. S: Complains about you overdosed me again. Please tell those people making mistakes up there to stop.(When questioned further about mistakes, he stated Forget it. O: Urinal with 1400 ml emptied again. Pt asked when he can leave seclusion. Debriefed as above. 1000: Awakened as fiction and nonfiction writer prose entered room. Pt lying on bed with head covered. Pt allowed vital signs check again. BP meds previously held, administered. Assisted in brushing teeth. No evidence of any physical distress. Asked if he can walk in room and was advised to sit at bedside and check for dizziness. To not go from lying position walking. Pt cooperative with directions by fiction and nonfiction writer prose. Sits on bed as staff enter room. Uses urinal appropriately . Debriefed about plan to discontinue seclusion if he continues to follow directions. 1100: Assessed by Dr. Cardoza. O: Senior Java J2E[employer] Developer debriefed about following directions. Suresh made long statement about how his rights had been violated in regard to having a rosary in his possession and how staffs behavior resulted in his being in this room. A: Still blaming staff. Little insight as to reasons for seclusion. 12:00 Suresh huertas as fiction and nonfiction writer prose entered room. Lying on bed quietly. Offered PO PRN Thorazine 100 mg and Ativan 2 mg. Accepted as offered. Requested and received Aspirin 650 for generalized pain relief. Senior Java J2Ee Developer reviewed items on Behavioral contract and pt agreed verbally and in writing. Asked where he could find the [facility] rules and referred to the folder received on admission. Pt is cooperative behaviorally and signed contract, seclusion discontinued.
[2016-10-23] MEDS: hydrOXYzine Pamoate 25 mg Capsule PO PRN ×2 (14:17→22:36)
--- NOTE | 2016-10-23 17:23 | NUR ---
Nursin to 1900 S/O: After coming out of seclusion, Suresh has maintained appropriate behavior for the open unit. He requested and received PRN medication of Klonopin 0.5 mg and Hydroxyzine 50 mg at 1410 with some calming effect. At that time, he stated, "Please give me all the as needed medications ordered when the hour comes up" Press And Blow Machine Tender responded that he would assessed for need for PrN medication on an ongoing basis. has made frequent requests from staff for various items. Stated "I need my testosterone shots and CPAP. no one has attended to this yet. I am getting sleep deprived." A: Continue with close observation for safety of others. Addendum: 10/23/16 at 1732 by MARY HAMPTON RN Amended: Links added.
[2016-10-23] MEDS: Magnesium Hydroxide 10 mL Oral Concentration PO PRN (17:53)
--- NOTE | 2016-10-23 22:12 | NUR ---
behavior: pt. has been appropriate and cooperative with staff and other patients. Pt. took his evening meds
--- NOTE | 2016-10-23 23:50 | NUR ---
NOC OBS Pt out on unit all evening very active. Affect restless with continued internal preoccupation/pressure. Broken sleep 100-330, 400. Observed Q15 as ordered.
[2016-10-24] MEDS: LORazepam 1 mg Tablet PO PRN ×3 (03:40→22:34)
--- NOTE | 2016-10-24 05:09 | NUR ---
Nursing Adjunct Faculty 11pm to 7am Pt asleep at start of shift and remained asleep for the duration with no complaints voiced or observed. Monitored pt. with 15 min face checks for safety, location and accountability.
--- NOTE | 2016-10-24 05:30 | NUR ---
Nursing Tongue Stitcher 11pm to 7am Pt awake at start of shift. At 0100 c/o pain requested [place] however it was due yet. Received Tylenol 650mg and Robaxin 750mg with moderate relief. Pt was very tired and staggered around the unit with an unsteady gait despite directions to go to bed. Pt educated on fall precautions. When redirected pt. got angry and belligerent but was able to self-regulate and did go to bed at 0130. . Pt awake at 0430, pacing unit and standing at nursing station window glaring at staff. Pt requested and received [place] 1 tab and Ativan 1mg for pain 10/23 and anxiety 11/23. Will continue to monitor with 15 min safety checks for safety, location and accountability. Monitored pt. with 15 min face checks for safety, location and accountability.
[2016-10-24 07:35] VITALS: BP 135/92; PULSE 84; RESP 19
[2016-10-24] MEDS: Magnesium Hydroxide 10 mL Oral Concentration PO PRN ×2 (07:56→18:15)
[2016-10-24] MEDS: Benzocaine-Menthol Lozenge 2/Pkg PO PRN ×2 (07:56→12:51)
[2016-10-24] MEDS: Trimethoprim-Sulfa 160 mg-800 mg Tablet PO SCH ×2 (07:56→22:34)
[2016-10-24] MEDS: Bacitracin Zinc-Polymyxin B 30 Gm Ointment TOPICAL SCH ×3 (07:57→22:35)
[2016-10-24] MEDS: Fluticasone 0.05% 15 Spray/2 Gm 16 Gm Nasal Spray NOSTRIL SCH ×2 (07:57→22:35)
[2016-10-24] MEDS: Mupirocin 2% 22 Gm Ointment TOPICAL SCH ×2 (07:57→22:34)
[2016-10-24] MEDS: DICLOFENAC 0.1% TOPICAL SCH (08:30)
--- NOTE | 2016-10-24 12:18 | PCM.PNPSY ---
Subjective Date of Service Oct 24, 2016 Subjective I spent 30 minutes both reviewing treatment plan with our clinical team, interviewing the patient and providing supportive/educational psychotherapy. I spent more than 50% of the time counseling the patient. I reviewed the treatment plan with the him and discussed options available including the potential risks, benefits and side effects. Juan Francisco reports an improvement in thought organization and mood stability. He believes that the Thorazine has been very effective. Staff reports that he has been cooperative and nonviolent for the past 24 hours. He is struggling with frequent irritability but is no longer exhibiting bizarre behavior. He easily takes offense at perceived insults. He slept 5 hours and denies psychotic symptoms review. He denies medication side effects. He was able to identify his medications and what they were used to treat. Current Medications Current Medications Chlorpromazine 100 mg 0830,17 PO Last administered on 10/24/16 07:56; Admin Dose 100 MG; Start 10/23/16 at 17:00; Stop 10/24/16 at 08:49; Status DC Chlorpromazine 100 mg Q2H PRN PO Last administered on 10/24/16 03:40; Admin Dose 100 MG; Start 10/22/16 at 16:25 Chlorpromazine 200 mg HS PO Last administered on 10/23/16 22:35; Admin Dose 200 MG; Start 10/23/16 at 21:00 Chlorpromazine HCl 100 mg Q2H PRN IM Last administered on 10/22/16 19:26; Admin Dose 100 MG; Start 10/22/16 at 16:30 Clonazepam 0.5 mg TID PRN PO Last administered on 10/23/16 20:55; Admin Dose 0.5 MG; Start 10/23/16 at 12:15 Lorazepam lorazepam 1-2mg po q6hr prn anxie... Q2 PRN PO Last administered on 03:40; Admin Dose 2 MG; Start 10/22/16 at 16:30 Trimethoprim/ Sulfamethoxazole 1 tablet BID PO Last administered on 10/24/16 07 :56; Admin Dose 1 TABLET; Start 10/22/16 at 20:30; Stop 10/27/16 at 11:15 Mental Status Exam Vital Signs Vital Signs Date Time Temp Pulse Resp B/P Pulse Ox O2 Delivery O2 Flow Rate FiO2 10/24/16 07:35 35.9 84 19 135/92 Appearance: Unkept Attitude: Pleasant, Cooperative Behavior: No unusual behavior Affect: Labile Mood: Irritable (Mild) Thought Process/Associations: Logical/Sequential, Goal Directed (generally) Speech Production: Normal Speech Rate: Normal Speech Articulation: Normal Thought Content: Jehovah'S Witness preoccupation, Perseveration Danger to Self/Suicidal Ideati: None Danger to Others: None Delusions: Paranoid (Endorses) Consciousness: Alert Orientation: Person, Place, Date, Situation Memory: Grossly Intact Estimate Intellectual Function: Average Basis for IQ estimate: Awareness current events, Word use/vocabulary, Educational history Attention/Concentration & Cogn: Impaired Insight: Limited Judgement: Limited Result Diagram: 10/22/16 0845 Mental Health Plan The patient is a 46-year-old male with a history of schizoaffective disorder, bipolar type, who presents with decompensation having stopped taking his antipsychotic and one of his mood stabilizers while remaining on lithium. Since admission to the unit he has been demonstrating manic behavior with distractibility, intrusiveness, and is requiring frequent redirection. On 7 9 PM he became agitated refused to follow redirections and was threatening and posturing in an aggressive manner. He has been in seclusion for most of the night and required by mouth and IM Thorazine in order to calm threatening behavior. Over the past 24 hours he appears markedly improved, cooperative and has been easily redirected. [place] Norfolk I 1. Schizoaffective disorder, bipolar type. 2. Alcohol use disorder in partial remission. 3. Cannabis use disorder. [place] II Deferred. [place] III Right hand edema and superficial lacerations, elevated creatinine kinase (resolving). [place] IV Moderate to severe. [place] V Global assessment of functionin. Treatments Patient is being provided with a high degree of safety through our unit structure and active adult engagement provided by our mental health professionals, mental health technicians, psychiatric nurses and myself. We are focusing on developing improved coping skills and identifying stressors that may have led to current episode. We will attempt to: * Integrate into therapeutic groups, milieu and individual therapy. * Maintain in a closely monitored and structured unit * Provide low-stimulation environment * Obtain collateral data to assist in treatment planning * Assess degree of lability of affect and impulse control * Complete safety plan * Decrease frequency of relapse and need for re-hospitalization * Denies thoughts of harm to self and/or others * Establish a consistent sleep pattern * Medication effective in stabilization of mood and/or thought process * Reduce the risk of imminent harm to self and/or others by providing a safe environment * Tolerates medication without side effects Patient will be on the following psychiatric medications: DC Seroquel 200 mg daily and 600 at bedtime DC Trazodone 100 mg at bedtime Eskalith 900 mg at bedtime Thorazine 100 mg every morning, 100 mg at noon, 200 mg at bedtime Thorazine 100 mg by mouth or IM every 2 hours as needed for severe agitation or threatening behavior Klonopin 0.5 mg 3 times a day Patient's legal status Patient is on a 14 day involuntary treatment hold. Anticipated number of hospital days to achieve above goals: 10 Disposition: Home Zaire Cardoza MD Oct 24, 2016 12:18
--- NOTE | 2016-10-24 15:02 | NUR ---
regulatory process manager/counselor S:" I have a list of things I need you to work on for me." O: Patient denies any SI or HI, no AVH besides "the lord", and he rated his anxiety at a 5 and his depression at a 2. A: Patient is very religiously preoccupied and stated that his civil rights were being violated for not being given his rosary. He has been very demanding of staff, and stated he had a list of things he'd need his counselors to work on for him. He was in and out of group and was somewhat disruptive during the times he was attending. Patient has been out in the day room, and in and out of his room "cleaning". P: Follow care plan and coordinate with outpatient providers.
--- NOTE | 2016-10-24 17:13 | NUR ---
Nursin to 1900 S/O: Juan Francisco has been out on the unit the whole shift. He has been goal directed in attempting to find out about his car - where it is being stored, how to access it again. Making many phone calls and requesting staff to look up many find numbers for him. Has approached staff politely. Has been able to maintain behavioral contract terms. Requested razor and shaved head. Did sustain 3 areas where he cut skin on his scalp. PRN med: At 1720, approached staff and requested medication for anxiety. Seroquel 100 mg and Ativan 2 mg were administered at 172. Effect: Pt stated that "It took me down about 3 levels. But I don't like that seroquel during the day." MOM 30 ml ay 1814 per request for constipation. After dinner, Suresh was busily washing down tables. Had some disagreements with peers about music to listen to but did not escalate to behavioral dyscontrol. A: Pressured. Busy. Attempting to cooperate with unit rules. P: Continue close observation for safety of staff, property and peers. Addendum: 10/24/16 at 1827 by MARY HAMPTON RN Amended: Links added.
[2016-10-24] MEDS: hydrOXYzine Pamoate 25 mg Capsule PO PRN (18:38)
--- NOTE | 2016-10-24 18:53 | NUR ---
Obs Dayshift Pt is very restless, easily agitated, frustrated and easily distracted. Pt is constantly up at the window asking for items or for staff to google things for him. Pt spent a large amount of time making phone calls to [employer] trying to find his car. Pt is tangential, labile and irritable. Pt has been wrapping things around his head and making random nonsensical statements, demanding, and verbally threatening toward staff. Pt is disorganized, and difficulty following staff directions. Pt has difficulty in groups, at times has a hard time tracking conversations. Poor ADL's, Good meals
[2016-10-24] MEDS: diphenhydrAMINE 25 mg Capsule PO PRN (22:49)
--- NOTE | 2016-10-25 01:41 | NUR ---
restaurant shift supervisor [phone] Pt has been polite and cooperative with care needs. Pt continues with scalp abrasions from hair cut and no bleeding noted at this time. Pt took all HS meds along with PRN Benadryl for c/o RT hand itching and Lorazepam 2mg for anxiety;Pt went to bed there after without s/sx of distress. Continue to monitor for mood changes, emotional well being, and q15min checks.
[2016-10-25] MEDS: diphenhydrAMINE 25 mg Capsule PO PRN ×3 (06:11→19:27)
[2016-10-25] MEDS: Fluticasone 0.05% 15 Spray/2 Gm 16 Gm Nasal Spray NOSTRIL SCH ×2 (07:34→20:30)
[2016-10-25] MEDS: Mupirocin 2% 22 Gm Ointment TOPICAL SCH ×2 (07:35→22:44)
[2016-10-25] MEDS: Trimethoprim-Sulfa 160 mg-800 mg Tablet PO SCH ×2 (07:36→19:30)
[2016-10-25] MEDS: Bacitracin Zinc-Polymyxin B 30 Gm Ointment TOPICAL SCH ×3 (08:30→20:30)
[2016-10-25] MEDS: DICLOFENAC 0.1% TOPICAL SCH (08:30)
[2016-10-25 10:14] VITALS: BP 143/96; PULSE 82; RESP 16
--- NOTE | 2016-10-25 11:28 | PCM.PNPSY ---
Subjective Date of Service Oct 25, 2016 Subjective I spent 30 minutes both reviewing treatment plan with our clinical team, interviewing the patient and providing supportive/educational psychotherapy. I spent more than 50% of the time counseling the patient. Juan Francisco reports an improvement in thought organization and mood stability. He feels that the Thorazine has been very effective. Staff reports that he has been cooperative and nonviolent for the past 48 hours. He is struggling with frequent irritability but is no longer exhibiting bizarre behavior. He easily takes offense at perceived insults but is able to take a timeout or remove himself from the situation. He slept 5 hours and denies psychotic symptoms review. He denies medication side effects. Current Medications Current Medications Chlorpromazine 100 mg 0830,12 PO Last administered on 10/25/16 07:39; Admin Dose 100 MG; Start 10/24/16 at 12:00 Chlorpromazine 100 mg 0830,17 PO Last administered on 10/24/16 07:56; Admin Dose 100 MG; Start 10/23/16 at 17:00; Stop 10/24/16 at 08:49; Status DC Chlorpromazine 200 mg HS PO Last administered on 10/24/16 22:33; Admin Dose 200 MG; Start 10/23/16 at 21:00 Clonazepam 0.5 mg TID PRN PO Last administered on 10/24/16 18:37; Admin Dose 0.5 MG; Start 10/23/16 at 12:15 Mental Status Exam Vital Signs Vital Signs Date Time Temp Pulse Resp B/P Pulse Ox O2 Delivery O2 Flow Rate FiO2 10/25/16 10:14 36.2 82 16 143/96 Appearance: Neat/well groomed Attitude: Pleasant, Cooperative Behavior: No unusual behavior Affect: Labile Mood: Euthymic Thought Process/Associations: Logical/Sequential, Goal Directed (generally) Speech Production: Normal Speech Rate: Normal Speech Articulation: Normal Thought Content: Mandaeism preoccupation, Perseveration Danger to Self/Suicidal Ideati: None Danger to Others: None Delusions: Paranoid (Endorses) Consciousness: Alert Orientation: Person, Place, Date, Situation Memory: Grossly Intact Estimate Intellectual Function: Average Basis for IQ estimate: Awareness current events, Word use/vocabulary, Educational history Attention/Concentration & Cogn: Impaired Insight: Limited Judgement: Limited Result Diagram: 10/22/16 0845 Mental Health Plan The patient is a 46-year-old male with a history of schizoaffective disorder, bipolar type, who presents with decompensation having stopped taking his antipsychotic and one of his mood stabilizers while remaining on lithium. Since admission to the unit he has been demonstrating manic behavior with distractibility, intrusiveness, and is requiring frequent redirection. On 7 9 PM he became agitated refused to follow redirections and was threatening and posturing in an aggressive manner. He has been in seclusion for most of the night and required by mouth and IM Thorazine in order to calm threatening behavior. Over the past 48 hours he appears markedly improved, cooperative and has been easily redirected. [place] I 1. Schizoaffective disorder, bipolar type. 2. Alcohol use disorder in partial remission. 3. Cannabis use disorder. [place] II Deferred. [place] III Right hand edema and superficial lacerations, elevated creatinine kinase (resolving). [place] IV Moderate to severe. [place] V Global assessment of functionin. Treatments Patient is being provided with a high degree of safety through our unit structure and active adult engagement provided by our mental health professionals, mental health technicians, psychiatric nurses and myself. We are focusing on developing improved coping skills and identifying stressors that may have led to current episode. We will attempt to: * Integrate into therapeutic groups, milieu and individual therapy. * Maintain in a closely monitored and structured unit * Provide low-stimulation environment * Obtain collateral data to assist in treatment planning * Assess degree of lability of affect and impulse control * Complete safety plan * Decrease frequency of relapse and need for re-hospitalization * Denies thoughts of harm to self and/or others * Establish a consistent sleep pattern * Medication effective in stabilization of mood and/or thought process * Reduce the risk of imminent harm to self and/or others by providing a safe environment * Tolerates medication without side effects Patient will be on the following psychiatric medications: Eskalith 900 mg at bedtime Thorazine 100 mg every morning, 100 mg at noon, 200 mg at bedtime Thorazine 100 mg by mouth or IM every 2 hours as needed for severe agitation or threatening behavior Klonopin 0.5 mg 3 times a day Patient's legal status Patient is on a 14 day involuntary treatment hold. Anticipated number of hospital days to achieve above goals: 10 Disposition: Home Zaire Cardoza MD Oct 25, 2016 11:28
[2016-10-25] MEDS: Benzocaine-Menthol Lozenge 2/Pkg PO PRN ×2 (11:43→22:53)
--- NOTE | 2016-10-25 12:33 | NUR ---
[facility] Day Shift Pt continues to have difficulty maintaining behavioral control throughout the shift, occasionally requiring redirection from bizarre behavior. Pt affect appears mostly flat, preoccupied. Pt spends most of the shift pacing the unit, attempting to interact with peers, and resting in his room. Pt speech occasionally appears nonsensical, bizarre. Pt behavior occasionally appears bizarre as well (ex. pt entered the hallway with his entire head/face wrapped in a sheet, blindly walking down the martin, using lotion to write on [place]). Pt is mostly appropriate with staff and peers when active on the unit, but is occasionally intrusive/inappropriate and requires redirection, even appearing antagonistic with some peers. Pt attended community meeting in the AM, but did not attend AM group. Pt has attended all meals at this time and has eaten approx 100% of all meals.
--- NOTE | 2016-10-25 13:01 | NUR ---
NURSING DAYS 7-7 (10/25) S/O-Patient appears at times agitated and anxious, cleaning sinks, windows, and requesting "things" (needy). Compliant with care, taking medications, and interacting with male patients and staff. Patient c/o hand pain (right hand continues to be swollen). Appears confused at times had shaved his head recently. A- PO Thorazine given Q4 and patient states "That Thorazine is working, making me feel better." ASA and Tylenol given for hand pain, Diphenhydramine for itching. P- Continue to keep patient safe. Court today patient requesting jury trail contesting 90 MRO.
[2016-10-25] MEDS: LORazepam 1 mg Tablet PO PRN ×2 (13:26→19:27)
--- NOTE | 2016-10-25 15:48 | NUR ---
Paper Cone Grader/Counselor S:"I really need to see the placement officer." O: Patient denies any HI or SI, stated he was not experiencing any AVH today, and rated his depression at 0 and his anxiety at a 5. Patient slept for 4.75 hours last night. A: Patient has been out in the milieu on and off. He is still preoccupied religiously and has many demands for staff. He was pleasant but tangential and confused. P: Follow care plan and coordinate with outpatient providers.
[2016-10-25] MEDS: hydrOXYzine Pamoate 25 mg Capsule PO PRN (23:20)
[2016-10-25] MEDS: Magnesium Hydroxide 10 mL Oral Concentration PO PRN (23:20)
[2016-10-26] MEDS: diphenhydrAMINE 25 mg Capsule PO PRN ×3 (02:48→21:13)
--- NOTE | 2016-10-26 04:09 | NUR ---
nursing, nights, 11-7 s- i'm going to call the police on you. take you to [facility] if meds are wrong. i was supposed to get my meds at 1030, otherwise i'm off. i'm going back to bed. can i have something to get back to sleep. o- has appeared to sleep after 0015. up and asked for 100 mg thorazine, 50 mg benadryl, 650 mg tylenol. returned to bed appearing to sleep after 5. back up at 0400 with blanket over his head. returned to bed when directed. assessed q 15 minutes. a- interupted sleep, demanding and paranoid at times, accepts staff direction, has maintained behavioral control. p- monitor behavior/emotional state, quality, times and amount of sleep, use and effect of medication. alban
[2016-10-26] MEDS: Trimethoprim-Sulfa 160 mg-800 mg Tablet PO SCH ×2 (07:28→21:10)
[2016-10-26] MEDS: Fluticasone 0.05% 15 Spray/2 Gm 16 Gm Nasal Spray NOSTRIL SCH ×2 (07:29→21:12)
[2016-10-26] MEDS: Mupirocin 2% 22 Gm Ointment TOPICAL SCH ×2 (07:30→20:30)
[2016-10-26] MEDS: Bacitracin Zinc-Polymyxin B 30 Gm Ointment TOPICAL SCH ×3 (07:30→20:30)
[2016-10-26] MEDS: DICLOFENAC 0.1% TOPICAL SCH (07:30)
[2016-10-26] MEDS: Benzocaine-Menthol Lozenge 2/Pkg PO PRN ×2 (09:23→22:23)
[2016-10-26] MEDS: LORazepam 1 mg Tablet PO PRN ×2 (10:23→21:12)
--- NOTE | 2016-10-26 12:29 | PCM.PNPSY ---
Subjective Date of Service Oct 26, 2016 Subjective I spent 30 minutes both reviewing treatment plan with our clinical team, interviewing the patient and providing supportive/educational psychotherapy. I spent more than 50% of the time counseling the patient. Juan Francisco reports an improvement in thought organization and mood stability. He feels that the Thorazine has been very effective. Staff reports that he has been cooperative and nonviolent for the past 48 hours. He is struggling with frequent irritability but is no longer exhibiting bizarre behavior. He easily takes offense at perceived insults but is able to take a timeout or remove himself from the situation. He slept 2 hours and denies psychotic symptoms review. He denies medication side effects. Mental Status Exam Appearance: Neat/well groomed Attitude: Pleasant, Cooperative Behavior: No unusual behavior Affect: Well Modulated/Appropriate Mood: Euthymic Thought Process/Associations: Logical/Sequential, Goal Directed (generally) Speech Production: Normal Speech Rate: Normal Speech Articulation: Normal Thought Content: Synagogue preoccupation, Perseveration Danger to Self/Suicidal Ideati: None Danger to Others: None Delusions: Paranoid (Endorses) Consciousness: Alert Orientation: Person, Place, Date, Situation Memory: Grossly Intact Estimate Intellectual Function: Average Basis for IQ estimate: Awareness current events, Word use/vocabulary, Educational history Attention/Concentration & Cogn: Impaired Insight: Limited Judgement: Limited Result Diagram: 10/22/16 0845 Mental Health Plan The patient is a 46-year-old male with a history of schizoaffective disorder, bipolar type, who presents with decompensation having stopped taking his antipsychotic and one of his mood stabilizers while remaining on lithium. Since admission to the unit he has been demonstrating manic behavior with distractibility, intrusiveness, and is requiring frequent redirection. On 7 9 PM he became agitated refused to follow redirections and was threatening and posturing in an aggressive manner. He has been in seclusion for most of the night and required by mouth and IM Thorazine in order to calm threatening behavior. Over the past 72 hours he appears markedly improved, cooperative and has been easily redirected. I am concerned about his lack of sleep. He is not wanting to increase his medications at this time but agreed to an increase if sleep continues to be poor. [place] I 1. Schizoaffective disorder, bipolar type. 2. Alcohol use disorder in partial remission. 3. Cannabis use disorder. [place] II Deferred. [place] III Right hand edema and superficial lacerations, elevated creatinine kinase (resolving). [place] IV Moderate to severe. [place] V Global assessment of functionin. Treatments Patient is being provided with a high degree of safety through our unit structure and active adult engagement provided by our mental health professionals, mental health technicians, psychiatric nurses and myself. We are focusing on developing improved coping skills and identifying stressors that may have led to current episode. We will attempt to: * Integrate into therapeutic groups, milieu and individual therapy. * Maintain in a closely monitored and structured unit * Provide low-stimulation environment * Obtain collateral data to assist in treatment planning * Assess degree of lability of affect and impulse control * Complete safety plan * Decrease frequency of relapse and need for re-hospitalization * Denies thoughts of harm to self and/or others * Establish a consistent sleep pattern * Medication effective in stabilization of mood and/or thought process * Reduce the risk of imminent harm to self and/or others by providing a safe environment * Tolerates medication without side effects Patient will be on the following psychiatric medications: Eskalith 900 mg at bedtime Thorazine 100 mg every morning, 100 mg at noon, 200 mg at bedtime Thorazine 100 mg by mouth or IM every 2 hours as needed for severe agitation or threatening behavior Klonopin 0.5 mg 3 times a day Patient's legal status Patient is on a 14 day involuntary treatment hold. Anticipated number of hospital days to achieve above goals: 10 Disposition: Home Zaire Cardoza MD Oct 26, 2016 12:29
[2016-10-26 16:00] VITALS: BP 133/97; PULSE 89; RESP 18
--- NOTE | 2016-10-26 16:08 | NUR ---
[place]ley Maintainer/Counselor S:"I have a list of things, can you help me with those?" O: Patient denies any SI or HI, no AVH but stated that he talks to "the lord". He rated his anxiety at a 4 or 5, and did not express any depression. A: Patient has been on the phone with [employer] and [place], and has been repetitive in his requests of staff. He participated in group and has been out on the unit. P: Follow care plan and coordinate with outpatient providers.
--- NOTE | 2016-10-26 16:59 | NUR ---
Nursing Note Dayshift S: "if you don't have the correct date on the board then people are going to go crazy in here" O: Pt gets easily agitated at times. Pt can be demanding of staff, he is redirect able and able to control his behaviors. Patient out in the milieu and the dining room this shift. Pt participating in group and activities. Pt is asking about [employer] today and wants to call them. A: Patient often observed cleaning the table and chairs. Pt is interacting with other patients, more so with male patients. Pt has swelling to his right hand, this is ongoing, pt applied cream to the area. Pt also has a large hematoma on his right reid, with some swelling in the center. When asked what happened, pt states that this is what happens when you "kick down a door". Pt has taken aspirin for his pain with good effect. Pt rates his anxiety at a 8/10, requesting Ativan 2mg po, given with some effect noticed. Pt then asked for klonopin for anxiety of 5/10. Pt having visual hallucinations, as he describes a "sophie cone shaped hat with a black ring of diamonds on the bottom on top of another patients head", there was nothing on the other patients head. P: Follow plan of care, monitor behaviors. Monitor for side effects.
[2016-10-26] MEDS: Magnesium Hydroxide 10 mL Oral Concentration PO PRN (17:55)
[2016-10-26] MEDS: hydrOXYzine Pamoate 25 mg Capsule PO PRN (22:18)
--- NOTE | 2016-10-27 00:06 | NUR ---
Observations 1900 to 0700 Pt did not attend wrap up group. Pt ate a snack. Pt is pressured, manic and unable to maintain behavioral control. Pt also argues with staff when his requests cant be met. Pt is heard talking to himself loudly in room. Pt brought paper bag to this sql report writer and stated this needs to be incinerated. Do not open! Its a bomb! Inside the bag was a soaked toilet paper roll. Pt appeared asleep at 2300 and has remained asleep. Pt respirations were observed when asleep. Staff completed 15 min close observations as ordered.
--- NOTE | 2016-10-27 04:50 | NUR ---
Nursing Noc Pt continues to behave very distracted and tangential. Noted to report he is cleaning room while at the same time throwing his bed on the floor and c/o previous occupant putting swastika on the wall. Pt noted to have difficulty accomplishing adequate sleep this shift. Accepting medications, but noted to have difficulty understanding why he is taking them. Safety checks Q15 minute through the night. Continuing to monitor mood behavior and emotional state.
[2016-10-27] MEDS: hydrOXYzine Pamoate 25 mg Capsule PO PRN (05:28)
[2016-10-27] MEDS: Fluticasone 0.05% 15 Spray/2 Gm 16 Gm Nasal Spray NOSTRIL SCH ×2 (07:48→21:46)
[2016-10-27] MEDS: Bacitracin Zinc-Polymyxin B 30 Gm Ointment TOPICAL SCH ×3 (07:48→20:30)
[2016-10-27] MEDS: Trimethoprim-Sulfa 160 mg-800 mg Tablet PO SCH (07:48)
[2016-10-27] MEDS: DICLOFENAC 0.1% TOPICAL SCH (07:49)
[2016-10-27] MEDS: Mupirocin 2% 22 Gm Ointment TOPICAL SCH ×2 (07:49→21:46)
[2016-10-27] MEDS: LORazepam 1 mg Tablet PO PRN ×3 (09:26→21:44)
--- NOTE | 2016-10-27 17:05 | NUR ---
Dayshift Nursing Note: S: "Can I get my Aspirin yet? I am in extreme pain, my shoulder hurts its a 9/10 and hurts bad" O: Pt can be intrusive and easily agitated at times. Pt can be demanding and needy of staff , he is redirect-able and able to control his behaviors. Patient out in the milieu and the dining room this shift. Pt participating in group and activities. Pt appears calmer when talking to the staff today. A: Pt is interacting well with other patients. Pt continues to have right hand swelling, pt applied cream to the area. Pt also has a large hematoma on his right reid, with some swelling in the center. Pt has taken aspirin for his pain with good effect. Pt rates his anxiety at a 8/10, requesting Ativan 2mg po, given with some effect noticed. Offered Thorazine, but patient refused to take Thorazine PRN. P: Follow plan of care, monitor behaviors. Monitor for side effects.
--- NOTE | 2016-10-27 18:05 | NUR ---
[facility] Day Shift Pt maintained behavioral control throughout the shift. Pt affect appears mostly flat, preoccupied. Pt spends most of the shift pacing the unit, attempting to interact with peers, and resting in his room. Pt speech occasionally appears nonsensical, bizarre. Pt behavior occasionally appears bizarre as well, though less so than noted on previous shifts. Pt is mostly appropriate with staff and peers when active on the unit, but is occasionally intrusive/inappropriate, but has not required redirection this shift. Pt attended afternoon group activity. Pt has attended all meals at this time and has eaten approx 100% of all meals.
[2016-10-27 18:57] VITALS: BP 123/84; PULSE 89; RESP 16
--- NOTE | 2016-10-27 19:58 | NUR ---
military technology manager/Counselor: S/O: Patient only slept 5 hours last night per staff. Patient denies S/I and H/I. He also denies auditory and visual hallucinations. Depression and anxiety were not rated. A: Patient is cooperative, unkept, euthymic, religiously preoccupied, paranoid, limited insight, limited judgment. P: Follow care plan, coordinate with out-patient providers, monitor behavior.
[2016-10-27] MEDS: diphenhydrAMINE 25 mg Capsule PO PRN (21:44)
--- NOTE | 2016-10-28 04:51 | NUR ---
shift supervisor rn [phone] Pt c/o chest wall pain, which was aggravated by shoulder movement caused from a previous injury. New order ibuprofen 200-400mg. Pt was upset during wrap up group because he believed that someone was going into his room taking personal effects. Pt stated, " If anyone of you go into my room I am going to hurt you." Pt did not show any physical aggressive behaviors toward peers and was easily redirected. Continue to monitor for mood changes, emotional well being, and q15min checks for safety. Care continues.
[2016-10-28] MEDS: Mupirocin 2% 22 Gm Ointment TOPICAL SCH ×2 (08:06→21:04)
[2016-10-28] MEDS: Fluticasone 0.05% 15 Spray/2 Gm 16 Gm Nasal Spray NOSTRIL SCH ×2 (08:06→21:02)
[2016-10-28] MEDS: DICLOFENAC 0.1% TOPICAL SCH (08:08)
[2016-10-28] MEDS: Bacitracin Zinc-Polymyxin B 30 Gm Ointment TOPICAL SCH ×3 (08:30→20:30)
[2016-10-28] MEDS: LORazepam 1 mg Tablet PO PRN ×2 (11:26→21:03)
--- NOTE | 2016-10-28 13:01 | PCM.PNPSY ---
Subjective Date of Service Oct 28, 2016 Subjective I spent 30 minutes both reviewing treatment plan with our clinical team, interviewing the patient and providing supportive/educational psychotherapy. I spent more than 50% of the time counseling the patient. Juan Francisco reports an improvement in thought organization and mood stability. He continues to feel that the Thorazine has been very effective. Staff reports that he has been cooperative and nonviolent for the past 72 hours. He is struggling with frequent irritability but is no longer exhibiting bizarre behavior. He slept 4 hours and denies psychotic symptoms review. He denies medication side effects. Current Medications Current Medications Aspirin 650 mg TID PRN PO Last administered on 10/28/16 08:10; Admin Dose 650 MG; Start 10/28/16 at 11:00 Ibuprofen 200-400 MG Q4H PRN PO Last administered on 10/28/16 11:28; Admin Dose 400 MG; Start 10/27/16 at 22:20 Mental Status Exam Appearance: Neat/well groomed Attitude: Pleasant, Cooperative Behavior: No unusual behavior Affect: Well Modulated/Appropriate Mood: Euthymic Thought Process/Associations: Logical/Sequential, Goal Directed (generally) Speech Production: Normal Speech Rate: Normal Speech Articulation: Normal Thought Content: Mandaen preoccupation, Perseveration Danger to Self/Suicidal Ideati: None Danger to Others: None Delusions: Paranoid (Endorses) Consciousness: Alert Orientation: Person, Place, Date, Situation Memory: Grossly Intact Estimate Intellectual Function: Average Basis for IQ estimate: Awareness current events, Word use/vocabulary, Educational history Attention/Concentration & Cogn: Impaired Insight: Limited Judgement: Limited Result Diagram: 10/22/16 0845 Mental Health Plan The patient is a 46-year-old male with a history of schizoaffective disorder, bipolar type, who presents with decompensation having stopped taking his antipsychotic and one of his mood stabilizers while remaining on lithium. Since admission to the unit he has been demonstrating manic behavior with distractibility, intrusiveness, and is requiring frequent redirection. On 7 9 PM he became agitated refused to follow redirections and was threatening and posturing in an aggressive manner. He has been in seclusion for most of the night and required by mouth and IM Thorazine in order to calm threatening behavior. Over the past 72 hours he appears markedly improved, cooperative and has been easily redirected. He is not wanting to increase his medications at this time but agreed to an increase if sleep continues to be poor. [place] I 1. Schizoaffective disorder, bipolar type. 2. Alcohol use disorder in partial remission. 3. Cannabis use disorder. [place] II Deferred. [place] III Right hand edema and superficial lacerations, elevated creatinine kinase (resolving). [place] IV Moderate to severe. [place] V Global assessment of functionin. Treatments Patient is being provided with a high degree of safety through our unit structure and active adult engagement provided by our mental health professionals, mental health technicians, psychiatric nurses and myself. We are focusing on developing improved coping skills and identifying stressors that may have led to current episode. We will attempt to: * Integrate into therapeutic groups, milieu and individual therapy. * Maintain in a closely monitored and structured unit * Provide low-stimulation environment * Obtain collateral data to assist in treatment planning * Assess degree of lability of affect and impulse control * Complete safety plan * Decrease frequency of relapse and need for re-hospitalization * Denies thoughts of harm to self and/or others * Establish a consistent sleep pattern * Medication effective in stabilization of mood and/or thought process * Reduce the risk of imminent harm to self and/or others by providing a safe environment * Tolerates medication without side effects Patient will be on the following psychiatric medications: Eskalith 900 mg at bedtime Thorazine 100 mg every morning, 100 mg at noon, 200 mg at bedtime Thorazine 100 mg by mouth or IM every 2 hours as needed for severe agitation or threatening behavior Klonopin 0.5 mg 3 times a day Patient's legal status Patient is on a 14 day involuntary treatment hold. Anticipated number of hospital days to achieve above goals: 10 Disposition: Home Zaire Cardoza MD Oct 28, 2016 13:01
--- NOTE | 2016-10-28 14:01 | NUR ---
Pump Station Operator/Counselor S:"I'd like to take a shower please." O: Patient denies any SI or HI, no AVH, no depression, and rated his anxiety at a 5.5. A: Patient was friendly and cooperative. Stated that he meditated on the patio, fell asleep and now feels really relaxed. He requested more aspirin for his shoulder pain. P: Follow care plan and coordinate with outpatient providers.
[2016-10-28] MEDS: diphenhydrAMINE 25 mg Capsule PO PRN ×2 (15:02→21:03)
--- NOTE | 2016-10-28 19:01 | NUR ---
[id number]. nurs. S: " There is nothing wrong with me I'm fine... could you put these papers like this for me I need 3 copies,... O: Pt out on unit with others not so much interacting but on edge of milieu. Pt given aspirin 650mg for pain L. shoulder also motrin reporting that the aspirin more effective . Pt also given benedryl for anxiety as requested. Pt pressured in morning able to maintain appropriate control over day. P:CNCP.
[2016-10-28] MEDS: hydrOXYzine Pamoate 25 mg Capsule PO PRN ×2 (19:43→19:44)
--- NOTE | 2016-10-29 05:22 | NUR ---
Nursing Noc Pt presents irritable with noted difficulty maintaining behavioral control. Very poor insight and difficult to redirect. Accepting medications after explanation but was noted to be unable to comprehend information. Pt achieved six hours of sleep with help of all available PRNs for sleep and agitation/anxiety. Continuing to monitor mood behavior, and emotional state. Q15 minute safety checks, CP
[2016-10-29] MEDS: Fluticasone 0.05% 15 Spray/2 Gm 16 Gm Nasal Spray NOSTRIL SCH ×2 (08:08→20:30)
[2016-10-29] MEDS: DICLOFENAC 0.1% TOPICAL SCH (08:30)
[2016-10-29] MEDS: Mupirocin 2% 22 Gm Ointment TOPICAL SCH ×2 (09:00→22:29)
[2016-10-29] MEDS: Bacitracin Zinc-Polymyxin B 30 Gm Ointment TOPICAL SCH ×3 (09:00→20:30)
[2016-10-29] MEDS: diphenhydrAMINE 25 mg Capsule PO PRN ×2 (10:11→22:32)
[2016-10-29] MEDS: Benzocaine-Menthol Lozenge 2/Pkg PO PRN (10:12)
[2016-10-29 12:46] VITALS: BP 117/76; PULSE 74; RESP 16
--- NOTE | 2016-10-29 12:53 | PCM.PNPSY ---
Subjective Date of Service Oct 29, 2016 Subjective I spent 30 minutes both reviewing treatment plan with our clinical team, interviewing the patient and providing supportive/educational psychotherapy. I spent more than 50% of the time counseling the patient. Juan Francisco reports an improvement in thought organization and mood stability. He continues to feel that the Thorazine has been very effective. Staff reports that he has been cooperative and nonviolent for the past 72 hours. He is struggling with frequent irritability but is no longer exhibiting bizarre behavior. He slept 6 hours and denies psychotic symptoms review. He denies medication side effects. Current Medications Current Medications Aspirin 650 mg TID PRN PO Last administered on 10/29/16 08:09; Admin Dose 650 MG; Start 10/28/16 at 11:00 Ibuprofen 200-400 MG Q4H PRN PO Last administered on 10/28/16 23:52; Admin Dose 400 MG; Start 10/27/16 at 22:20 Mental Status Exam Vital Signs Vital Signs Date Time Temp Pulse Resp B/P Pulse Ox O2 Delivery O2 Flow Rate FiO2 10/29/16 12:46 36.1 74 16 117/76 Appearance: Neat/well groomed Attitude: Pleasant, Cooperative Behavior: No unusual behavior Affect: Well Modulated/Appropriate Mood: Euthymic Thought Process/Associations: Logical/Sequential, Goal Directed (generally) Speech Production: Normal Speech Rate: Normal Speech Articulation: Normal Thought Content: Restorationism preoccupation, Perseveration Danger to Self/Suicidal Ideati: None Danger to Others: None Delusions: Paranoid (Endorses) Consciousness: Alert Orientation: Person, Place, Date, Situation Memory: Grossly Intact Estimate Intellectual Function: Average Basis for IQ estimate: Awareness current events, Word use/vocabulary, Educational history Attention/Concentration & Cogn: Impaired Insight: Limited Judgement: Limited Mental Health Plan The patient is a 46-year-old male with a history of schizoaffective disorder, bipolar type, who presents with decompensation having stopped taking his antipsychotic and one of his mood stabilizers while remaining on lithium. Since admission to the unit he has been demonstrating manic behavior with distractibility, intrusiveness, and is requiring frequent redirection. On 7 9 PM he became agitated refused to follow redirections and was threatening and posturing in an aggressive manner. He has been in seclusion for most of the night and required by mouth and IM Thorazine in order to calm threatening behavior. Over the past 72 hours he appears markedly improved, cooperative and has been easily redirected. He is not wanting to increase his medications at this time but agreed to an increase if sleep continues to be poor. [place] I 1. Schizoaffective disorder, bipolar type. 2. Alcohol use disorder in partial remission. 3. Cannabis use disorder. [place] II Deferred. [place] III Right hand edema and superficial lacerations, elevated creatinine kinase (resolving). [place] IV Moderate to severe. [place] V Global assessment of functionin. Treatments Patient is being provided with a high degree of safety through our unit structure and active adult engagement provided by our mental health professionals, mental health technicians, psychiatric nurses and myself. We are focusing on developing improved coping skills and identifying stressors that may have led to current episode. We will attempt to: * Integrate into therapeutic groups, milieu and individual therapy. * Maintain in a closely monitored and structured unit * Provide low-stimulation environment * Obtain collateral data to assist in treatment planning * Assess degree of lability of affect and impulse control * Complete safety plan * Decrease frequency of relapse and need for re-hospitalization * Denies thoughts of harm to self and/or others * Establish a consistent sleep pattern * Medication effective in stabilization of mood and/or thought process * Reduce the risk of imminent harm to self and/or others by providing a safe environment * Tolerates medication without side effects Patient will be on the following psychiatric medications: Eskalith 900 mg at bedtime Thorazine 100 mg every morning, 100 mg at noon, 200 mg at bedtime Thorazine 100 mg by mouth or IM every 2 hours as needed for severe agitation or threatening behavior Klonopin 0.5 mg 3 times a day Patient's legal status Patient is on a 14 day involuntary treatment hold. Anticipated number of hospital days to achieve above goals: 10 Disposition: Home Zaire Cardoza MD Oct 29, 2016 12:53
--- NOTE | 2016-10-29 17:08 | NUR ---
[id number]. nurs. S: " I'm feeling anxious, is there anything for it, I don't need anything for pain, aspirin is good it's the best... O: Pt requesting med for L. shoulder pain that he states is improving and given aspirin at both 0809 and at 1256 and motrin 400mg at dinner time pt stating pain has returned at a 6.5 /10 level, after aspirin effective earlier in day. Pt given klonapin 0.5mg for anxiety, at 0808 and 1610. Pt presenting with even mood most of day. No verbal outbursts, spending time out on the unit . Pt continues to focus on some childlike writings and drawings and likes all steps of process to be carried out in particular manner. Pt asking about medications as taking them and asking to get needs met. Showing consideration towards some more disabled peers. P:CNCP
--- NOTE | 2016-10-29 17:49 | NUR ---
[facility] Day Shift Pt affect and behavior unchanged from previous shifts. Pt maintained behavioral control throughout the shift. Pt affect appears mostly flat, preoccupied. Pt spends most of the shift pacing the unit, attempting to interact with peers, and resting in his room. Pt speech and behavior remain nonsensical, bizarre. Pt is mostly appropriate with staff and peers when active on the unit, but is occasionally intrusive/inappropriate, but has not required redirection this shift. Pt attended community meeting and afternoon group activity. Pt has attended all meals at this time and has eaten approx 100% of all meals.
[2016-10-29] MEDS: LORazepam 1 mg Tablet PO PRN ×3 (20:12→22:34)
[2016-10-30] MEDS: hydrOXYzine Pamoate 25 mg Capsule PO PRN ×3 (00:47→21:28)
[2016-10-30] MEDS: LORazepam 1 mg Tablet PO PRN ×4 (00:47→21:27)
--- NOTE | 2016-10-30 05:34 | NUR ---
1900-2 Addendum: 10/30/16 at 0543 by RADHA ALVAREZ RN shaft repairer note [id number] Pt had an uneventful night and was cooperative with care. "Give me everything you can give me including the extras because I want to go to bed." Pt took all HS and PRNs without any issues noted. No demanding behaviors or excessive cleaning. Pt went to bed thereafter and slept 4.75 hrs without distress. Continue to monitor for mood changes, emotional well being, and q15min checks for safety.
[2016-10-30 08:05] VITALS: BP 150/89; PULSE 78; RESP 20
[2016-10-30] MEDS: Bacitracin Zinc-Polymyxin B 30 Gm Ointment TOPICAL SCH ×3 (08:30→20:30)
[2016-10-30] MEDS: DICLOFENAC 0.1% TOPICAL SCH (08:30)
[2016-10-30] MEDS: Fluticasone 0.05% 15 Spray/2 Gm 16 Gm Nasal Spray NOSTRIL SCH ×2 (09:17→16:49)
[2016-10-30] MEDS: Mupirocin 2% 22 Gm Ointment TOPICAL SCH ×2 (09:18→20:30)
--- NOTE | 2016-10-30 12:36 | PCM.PNPSY ---
Subjective Date of Service Oct 30, 2016 Subjective I spent 30 minutes both reviewing treatment plan with our clinical team, interviewing the patient and providing supportive/educational psychotherapy. I spent more than 50% of the time counseling the patient. Juan Francisco reports an improvement in thought organization and mood stability. He continues to feel that the Thorazine has been very effective. Staff reports that he has been cooperative and nonviolent for the past 72 hours. He is struggling with frequent irritability but is no longer exhibiting bizarre behavior. He slept 5 hours and denies psychotic symptoms review. He denies medication side effects. Mental Status Exam Vital Signs Vital Signs Date Time Temp Pulse Resp B/P Pulse Ox O2 Delivery O2 Flow Rate FiO2 10/30/16 08:05 36.2 78 20 150/89 Appearance: Neat/well groomed Attitude: Pleasant, Cooperative Behavior: No unusual behavior Affect: Well Modulated/Appropriate Mood: Euthymic Thought Process/Associations: Logical/Sequential, Goal Directed (generally) Speech Production: Normal Speech Rate: Normal Speech Articulation: Normal Thought Content: Caodaism preoccupation, Perseveration Danger to Self/Suicidal Ideati: None Danger to Others: None Delusions: Paranoid (Endorses) Consciousness: Alert Orientation: Person, Place, Date, Situation Memory: Grossly Intact Estimate Intellectual Function: Average Basis for IQ estimate: Awareness current events, Word use/vocabulary, Educational history Attention/Concentration & Cogn: Impaired Insight: Limited Judgement: Limited Mental Health Plan The patient is a 46-year-old male with a history of schizoaffective disorder, bipolar type, who presents with decompensation having stopped taking his antipsychotic and one of his mood stabilizers while remaining on lithium. Since admission to the unit he has been demonstrating manic behavior with distractibility, intrusiveness, and is requiring frequent redirection. On 7 9 PM he became agitated refused to follow redirections and was threatening and posturing in an aggressive manner. He has been in seclusion for most of the night and required by mouth and IM Thorazine in order to calm threatening behavior. Over the past 72 hours he appears markedly improved, cooperative and has been easily redirected. He is not wanting to increase his medications at this time but agreed to an increase if sleep continues to be poor. [place] I 1. Schizoaffective disorder, bipolar type. 2. Alcohol use disorder in partial remission. 3. Cannabis use disorder. [place] II Deferred. [place] III Right hand edema and superficial lacerations, elevated creatinine kinase (resolving). [place] IV Moderate to severe. [place] V Global assessment of functionin. Treatments Patient is being provided with a high degree of safety through our unit structure and active adult engagement provided by our mental health professionals, mental health technicians, psychiatric nurses and myself. We are focusing on developing improved coping skills and identifying stressors that may have led to current episode. We will attempt to: * Integrate into therapeutic groups, milieu and individual therapy. * Maintain in a closely monitored and structured unit * Provide low-stimulation environment * Obtain collateral data to assist in treatment planning * Assess degree of lability of affect and impulse control * Complete safety plan * Decrease frequency of relapse and need for re-hospitalization * Denies thoughts of harm to self and/or others * Establish a consistent sleep pattern * Medication effective in stabilization of mood and/or thought process * Reduce the risk of imminent harm to self and/or others by providing a safe environment * Tolerates medication without side effects Patient will be on the following psychiatric medications: Eskalith 900 mg at bedtime Thorazine 100 mg every morning, 100 mg at noon, 200 mg at bedtime Thorazine 100 mg by mouth or IM every 2 hours as needed for severe agitation or threatening behavior Decrease Klonopin to 0.5 mg 2 times a day Patient's legal status Patient is on a 14 day involuntary treatment hold. Anticipated number of hospital days to achieve above goals: 10 Disposition: Home Zaire Cardoza MD Oct 30, 2016 12:36
[2016-10-30] MEDS: diphenhydrAMINE 25 mg Capsule PO PRN ×2 (13:02→21:27)
--- NOTE | 2016-10-30 15:20 | NUR ---
Buyer Internship/Counselor S:"Claudia will be here soon, and then I'll do some spot cleaning after her." O: Patient denies any HI or SI, no AVH, no anxiety or depression. A: Patient very preoccupied with keeping his room clean and stated that he was ready for tonight. When asked for clarification he stated "bed time". He was very disruptive while speaking to other patients and has been demanding of staff. He is out in the milieu and somewhat interacts with other patients. P: Follow care plans and coordinate with outpatient providers.
--- NOTE | 2016-10-30 15:55 | NUR ---
Observations [id number] Pt observed to be disorganized and anxious much of the day. Pt seen wearing underwear on his head which he says is "his doo rag" and he is wearing it because "I'm really black but no one believes me." Pt in and out of room much of the day, walking around with papers and phone numbers. Pt used the phone on multiple occasions, and has multiple requests from staff. Pt attended all meals, eating an average of 100%. Pt also observed cleaning the unit and room. This financial writer overhead pt talking to himself a few times in his room alone. Pt was not observed talking to himself in common areas or around peers. Pt good with ADL's, observed every 15 minutes of shift as directed.
--- NOTE | 2016-10-30 17:21 | NUR ---
Nursing: Day shift: O: Juan Francisco has been out in the milieu most of the shift except when he slept for a brief period. He was observed by staff in his room talking intently with no one present. Still makes multiple, frequent requests but slightly less than yesterday. Polite with staff and peers. PRN MEDS; At 1245, requested ASA and Motrin and received both for pain at "8.7/10". Stated this relieved his pain at 1400. Requested and received "Ativan" 2 mg for anxiety at "7.9/10". At 1245, requested and received Benadryl 50 mg at 1245 for itching "Will help me slow down also". At 1530, he requested and received Hydroxyzine 50 mg for anxiety. A: Behavior improved since early in admission. Remains disorganized in his thinking. P: Continue to assess for med effects. Addendum: 10/30/16 at 1736 by MARY HAMPTON RN Amended: Links added.
[2016-10-31 08:00] VITALS: BP 144/102; PULSE 80; RESP 20
[2016-10-31] MEDS: DICLOFENAC 0.1% TOPICAL SCH (08:30)
[2016-10-31] MEDS: Fluticasone 0.05% 15 Spray/2 Gm 16 Gm Nasal Spray NOSTRIL SCH ×2 (09:03→20:40)
[2016-10-31] MEDS: Mupirocin 2% 22 Gm Ointment TOPICAL SCH ×2 (09:05→20:30)
[2016-10-31] MEDS: Bacitracin Zinc-Polymyxin B 30 Gm Ointment TOPICAL SCH ×3 (09:10→20:30)
[2016-10-31] MEDS: diphenhydrAMINE 25 mg Capsule PO PRN ×2 (13:06→20:41)
--- NOTE | 2016-10-31 14:05 | PCM.PNPSY ---
Subjective Date of Service Oct 31, 2016 Subjective Subjective I spent 30 minutes both reviewing treatment plan with our clinical team, interviewing the patient and providing supportive/educational psychotherapy. I spent more than 50% of the time counseling the patient. Juan Francisco reports an improvement in thought organization and mood stability. He continues to feel that the current medication regimen has been very effective. Staff reports that he has been cooperative and nonviolent for the past 24 hours. He is continuing to struggle with frequent irritability but is no longer exhibiting bizarre behavior. He slept 5 hours and denies psychotic symptoms review. He denies medication side effects. Current Medications Current Medications Clonazepam 0.5 mg BID PRN PO Last administered on 10/30/16t 21:28; Admin Dose 0.5 MG; Start 10/30/16 at 20:30 Mental Status Exam Vital Signs Vital Signs Date Time Temp Pulse Resp B/P Pulse Ox O2 Delivery O2 Flow Rate FiO2 10/31/16 08:00 36.6 80 20 144/102 Appearance: Neat/well groomed Attitude: Pleasant, Cooperative Behavior: No unusual behavior Affect: Well Modulated/Appropriate Mood: Euthymic Thought Process/Associations: Logical/Sequential, Goal Directed (generally) Speech Production: Normal Speech Rate: Normal Speech Articulation: Normal Thought Content: Lutheran preoccupation, Perseveration Danger to Self/Suicidal Ideati: None Danger to Others: None Delusions: Paranoid (Endorses) Consciousness: Alert Orientation: Person, Place, Date, Situation Memory: Grossly Intact Estimate Intellectual Function: Average Basis for IQ estimate: Awareness current events, Word use/vocabulary, Educational history Attention/Concentration & Cogn: Impaired Insight: Limited Judgement: Limited Mental Health Plan The patient is a 46-year-old male with a history of schizoaffective disorder, bipolar type, who presents with decompensation having stopped taking his antipsychotic and one of his mood stabilizers while remaining on lithium. Since admission to the unit he has been demonstrating manic behavior with distractibility, intrusiveness, and is requiring frequent redirection. On 7 9 PM he became agitated refused to follow redirections and was threatening and posturing in an aggressive manner. He has been in seclusion for most of the night and required by mouth and IM Thorazine in order to calm threatening behavior. Over the past 72 hours he appears markedly improved, cooperative and has been easily redirected. He is not wanting to increase his medications at this time but agreed to an increase if sleep continues to be poor. [place] I 1. Schizoaffective disorder, bipolar type. 2. Alcohol use disorder in partial remission. 3. Cannabis use disorder. [place] II Deferred. [place] III Right hand edema and superficial lacerations, elevated creatinine kinase (resolving). [place] IV Moderate to severe. [place] V Global assessment of functionin. Treatments Patient is being provided with a high degree of safety through our unit structure and active adult engagement provided by our mental health professionals, mental health technicians, psychiatric nurses and myself. We are focusing on developing improved coping skills and identifying stressors that may have led to current episode. We will attempt to: * Integrate into therapeutic groups, milieu and individual therapy. * Maintain in a closely monitored and structured unit * Provide low-stimulation environment * Obtain collateral data to assist in treatment planning * Assess degree of lability of affect and impulse control * Complete safety plan * Decrease frequency of relapse and need for re-hospitalization * Denies thoughts of harm to self and/or others * Establish a consistent sleep pattern * Medication effective in stabilization of mood and/or thought process * Reduce the risk of imminent harm to self and/or others by providing a safe environment * Tolerates medication without side effects Patient will be on the following psychiatric medications: Eskalith 900 mg at bedtime Thorazine 100 mg every morning, 100 mg at noon, 200 mg at bedtime Thorazine 100 mg by mouth or IM every 2 hours as needed for severe agitation or threatening behavior Decrease Klonopin to 0.5 mg 2 times a day Labs: Recheck lithium in a.m. Patient's legal status Patient is on a 14 day involuntary treatment hold. Anticipated number of hospital days to achieve above goals: 10 Disposition: Home Zaire Cardoza MD Oct 31, 2016 14:05
--- NOTE | 2016-10-31 15:14 | NUR ---
Clinical Business Manager/Counselor S: "I'm sorry, am I bothering you?" O: Patient denies any SI or HI, no AVH, no anxiety or depression. Patient slept for 4.5hrs. A: Patient has been cooperative and asking questions. He has made multiple phone calls and has inquired about his court hearing. He is out in the milieu interacting with other patients and continues to be demanding of staff. P: Follow care plan and coordinate with outpatient providers.
[2016-10-31] MEDS: LORazepam 1 mg Tablet PO PRN ×2 (15:57→20:39)
--- NOTE | 2016-10-31 16:36 | NUR ---
Observations [id number] Pt labile, anxious much of the day- moving between room and dining area. Pt continues to make requests of staff but less frequent. He continues to be very religiously preoccupied. Pt attended morning meeting and groups, and met with Jw. Pt spent time on patio and it was reported from staff on third floor that pt was screaming outside. Pt was observed talking amongst himself when in his room and in the shower. Pt has difficulties getting along with one of the other pt's, stating that he was "threatening me" (referring to himself). Pt later stated that he was okay with the other pt, but that "he won't be pushed around by anyone." Pt requested to listen to music in common areas. Attended all meals, eating 100% of breakfast and dinner, but did not eat lunch. Pt was observed every 15 minutes of shift as directed.
--- NOTE | 2016-10-31 17:31 | NUR ---
Nursin to 1900. S/O: Suresh has been out on the open unit for long periods. When he is in his room or on the patio, he talks loudly to himself. Has maintained behavioral control. Acts 'busy'. Was pushing furniture around on the patio so aggressively that staff in the area above the patio called unit to report that someone was "screaming and making a lot of noise". Was visited by wrapper caser. Pt was visited by voice writing reporter and used rosary and crucifix and bible during the visit with her. Is allowed to use rosary 1 hour after lunch daily. Suresh tied the bandanas on his wrist and head. Suresh accused another male patient of bothering him (inaccurately). Made statement to sports book writer about "people bugging me". Observed performing repetitive compulsive behaviors such as putting a cup of water on top of the ice machine. Fills his own ice bag which he applies to his neck. PRN meds: At 1310, Thorazine 100 mg for anxiety, ASA 650 mg for pain and benadryl 50 for itching. Stated that Thorazine made him feel "like I am going to fall over on my face". Requested and received Ativan 2 mg at 1600 for anxiety. When checked an hour later, he ststed it had "no effect". A: Remains pressured, responding to internal stimuli, and anxious. P: Continue to assess for med effectiveness. Addendum: 10/31/16 at 1746 by MARY HAMPTON RN Amended: Links added.
[2016-10-31] MEDS: hydrOXYzine Pamoate 25 mg Capsule PO PRN (22:16)
--- NOTE | 2016-11-01 05:32 | NUR ---
Nursing Noc Pt appeared more relaxed this shift, but continues to have paranoid ideas of others. Requested and received available PRNs for sleep with minimal results. Continuing to monitor mood, behavior and emotional state. Q15 minute safety checks throughout the night. [facility] Lapel level to be obtained this am.
[2016-11-01] MEDS: Fluticasone 0.05% 15 Spray/2 Gm 16 Gm Nasal Spray NOSTRIL SCH ×2 (08:26→23:16)
[2016-11-01] MEDS: Mupirocin 2% 22 Gm Ointment TOPICAL SCH ×2 (08:30→20:30)
[2016-11-01] MEDS: DICLOFENAC 0.1% TOPICAL SCH (08:30)
[2016-11-01] MEDS: Bacitracin Zinc-Polymyxin B 30 Gm Ointment TOPICAL SCH ×3 (08:30→20:30)
[2016-11-01 09:10] VITALS: BP 134/86; PULSE 84; RESP 16
--- NOTE | 2016-11-01 13:59 | PCM.PNPSY ---
Subjective Date of Service Nov 01, 2016 Subjective I spent 30 minutes both reviewing treatment plan with our clinical team, interviewing the patient and providing supportive/educational psychotherapy. I spent less than 50% of the time counseling the patient. Juan Francisco reports an improvement in thought organization and mood stability. He continues to feel that the current medication regimen has been very effective. Staff reports that he has been cooperative and nonviolent for the past 24 hours. He is continuing to struggle with frequent irritability but is no longer exhibiting bizarre behavior. He slept 5 hours and denies psychotic symptoms review. He denies medication side effects. Current Medications Current Medications Clonazepam 0.5 mg BID PRN PO Last administered on 11/01/16t 08:26; Admin Dose 0.5 MG; Start 10/30/16 at 20:30 Mental Status Exam Vital Signs Vital Signs Date Time Temp Pulse Resp B/P Pulse Ox O2 Delivery O2 Flow Rate FiO2 11/01/16 09:10 36.4 84 16 134/86 Appearance: Unkept Attitude: Pleasant, Cooperative Behavior: No unusual behavior Affect: Labile Mood: Euthymic Thought Process/Associations: Logical/Sequential, Goal Directed (generally) Speech Production: Normal Speech Rate: Normal Speech Articulation: Normal Thought Content: Cheondoism preoccupation, Perseveration Danger to Self/Suicidal Ideati: None Danger to Others: None Delusions: Paranoid (Endorses) Consciousness: Alert Orientation: Person, Place, Date, Situation Memory: Grossly Intact Estimate Intellectual Function: Average Basis for IQ estimate: Awareness current events, Word use/vocabulary, Educational history Attention/Concentration & Cogn: Impaired Insight: Limited Judgement: Limited Mental Health Plan The patient is a 46-year-old male with a history of schizoaffective disorder, bipolar type, who presents with decompensation having stopped taking his antipsychotic and one of his mood stabilizers while remaining on lithium. Since admission to the unit he has been demonstrating manic behavior with distractibility, intrusiveness, and is requiring frequent redirection. On 7 9 PM he became agitated refused to follow redirections and was threatening and posturing in an aggressive manner. He has been in seclusion for most of the night and required by mouth and IM Thorazine in order to calm threatening behavior. Over the past 72 hours he appears markedly improved, cooperative and has been easily redirected. He is not wanting to increase his medications at this time but agreed to an increase if sleep continues to be poor. Juan Francisco appears to be making slow but steady progress. [place] Marion I 1. Schizoaffective disorder, bipolar type. 2. Alcohol use disorder in partial remission. 3. Cannabis use disorder. Marion II Deferred. Marion III Right hand edema and superficial lacerations, elevated creatinine kinase (resolving). Marion IV Moderate to severe. Marion V Global assessment of functionin. Treatments Patient is being provided with a high degree of safety through our unit structure and active adult engagement provided by our mental health professionals, mental health technicians, psychiatric nurses and myself. We are focusing on developing improved coping skills and identifying stressors that may have led to current episode. We will attempt to: * Integrate into therapeutic groups, milieu and individual therapy. * Maintain in a closely monitored and structured unit * Provide low-stimulation environment * Obtain collateral data to assist in treatment planning * Assess degree of lability of affect and impulse control * Complete safety plan * Decrease frequency of relapse and need for re-hospitalization * Denies thoughts of harm to self and/or others * Establish a consistent sleep pattern * Medication effective in stabilization of mood and/or thought process * Reduce the risk of imminent harm to self and/or others by providing a safe environment * Tolerates medication without side effects Patient will be on the following psychiatric medications: Increase Eskalith to 1200 mg at bedtime Thorazine 100 mg every morning, 100 mg at noon, 200 mg at bedtime Thorazine 100 mg by mouth or IM every 2 hours as needed for severe agitation or threatening behavior Decrease Klonopin to 0.5 mg 2 times a day Labs: lithium 11/01/2016 equal to 0.5 Patient's legal status Patient is on a 14 day involuntary treatment hold. Anticipated number of hospital days to achieve above goals: 10 Disposition: Home Zaire Cardoza MD Nov 01, 2016 13:59
--- NOTE | 2016-11-01 14:19 | NUR ---
[id number]. nurs. 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 can I keep my papers here...(trying to stuff paperwk in door latch.)" O: Pt continues to deny having any pxs or concerns. Pt continues to appear busy, preoccupied with some compulsions /rituals in restless manner with some tension in manner. Pt has low tolerance for stimulation, given 0.5mg klonapin at 0826, when beginning to engage in escalating angry altercation with peer at breakfast, other pt exhibiting more ability to disengage and pt exhibiting poor social skills. Pt active around unit ,does not interact frequently, did attend grp , but disruptive with gesturing and other inappropriate behaviours that indicated he was not focused on grp goals. Staff have observed and heard pt talking loudly when others not present in his bedrm and on patio in DR at while trying to create "nitrogen " Pt's conversation pressured scattered and disorganised. P: CNCP Addendum: 11/01/16 at 1637 by ABHIJIT BANDA RN Pt c/o leg pain and anxiety from anothers pt's distress and loud behaviour. Pt given aspirin 650mg and ativan 1mg at 1554. Addendum: 11/01/16 at 1840 by ABHIJIT BANDA RN Pt given motrin 400mg at 1814 for c/o gen. pain and discomfort legs shoulders and back.
[2016-11-01] MEDS: LORazepam 1 mg Tablet PO PRN ×2 (15:55→23:53)
--- NOTE | 2016-11-01 16:24 | NUR ---
Inclinometer Tester/Counselor S:" You don't scare very easy." O: Patient did not express any SI or HI, no AVH, no anxiety or depression. A: Patient participated in group but was disruptive. He has been out on the milieu but has been inappropriate with staff. He is preoccupied with bizarre rituals and very restless. P: Follow care plan and coordinate with outpatient providers.
--- NOTE | 2016-11-01 18:05 | NUR ---
[facility] Day Shift Pt affect and behavior unchanged from previous shifts. Pt maintained behavioral control throughout the shift. Pt affect appears mostly flat, preoccupied. Pt spends most of the shift pacing the unit, attempting to interact with peers, and resting in his room. Pt speech and behavior remain nonsensical, bizarre. Pt is mostly appropriate with staff and peers when active on the unit, but is occasionally intrusive/inappropriate, but has not required redirection this shift. Pt attended community meeting and passively participated in afternoon groups. Pt has attended all meals at this time and has eaten approx 100% of all meals.
[2016-11-01] MEDS: diphenhydrAMINE 25 mg Capsule PO PRN (23:14)
--- NOTE | 2016-11-01 23:16 | NUR ---
Observations 1900 to 0700 Pt ate a snack. Pt continues to be pressured, manic, busied in an appropriate/ dysfunctional activities and continues to talk to himself. Pt maintained behavioral control. Staff completed 15 min close observations as ordered.
--- NOTE | 2016-11-02 04:42 | NUR ---
Nursing Noc Pt showing little if any improvement from previous shift. Continues to be oppositional with direction and very poor insight to behavior. "I really need to go to the bathroom, but I locked myself out of my room" Patients room was not locked, "Oh, well I really want to get something to drink really really bad, but I need a cup!" Noted to have inadequate sleep, continuing to monitor mood, behavior and emotional state. Q15 minute safety checks throughout the night. CP
[2016-11-02] MEDS: diphenhydrAMINE 25 mg Capsule PO PRN ×2 (08:01→22:16)
[2016-11-02] MEDS: Mupirocin 2% 22 Gm Ointment TOPICAL SCH ×2 (08:06→20:30)
[2016-11-02] MEDS: Fluticasone 0.05% 15 Spray/2 Gm 16 Gm Nasal Spray NOSTRIL SCH ×2 (08:06→21:02)
[2016-11-02] MEDS: DICLOFENAC 0.1% TOPICAL SCH (08:06)
[2016-11-02] MEDS: Bacitracin Zinc-Polymyxin B 30 Gm Ointment TOPICAL SCH ×3 (08:07→20:30)
[2016-11-02] MEDS: LORazepam 1 mg Tablet PO PRN ×3 (13:10→23:13)
[2016-11-02 14:36] VITALS: BP 125/87; PULSE 77; RESP 16
--- NOTE | 2016-11-02 14:38 | PCM.PNPSY ---
Subjective Date of Service Nov 02, 2016 Subjective I spent 30 minutes both reviewing treatment plan with our clinical team, interviewing the patient and providing supportive/educational psychotherapy. I spent more than 50% of the time counseling the patient. Juan Francisco reports feeling hostile and told me today that he is "I am the devil man"" if you do not stop that other patient from bothering me I am going to take him out". He continues to feel that the current medication regimen has been very effective but does not recognize the increase in delusional thought, intrusive behavior or threatening behavior. I had recently decreased his Klonopin to when necessary and believe that this may have been too early. It appears he has had a recurrence of alverto and psychotic thought. I talked with him about increasing Thorazine and Klonopin to deal with this and he agreed. Staff reports that he has been cooperative and nonviolent for the past 24 hours. He is continuing to struggle with frequent irritability and is again beginning to exhibit Bizarre behavior in the form of wearing his underwear under his head or stating the above delusional statements. He slept 7 hours and is now reporting multiple delusional thoughts and impulses to harm others.. He denies medication side effects. Current Medications Current Medications [place] Carbonate 1,200 mg HS PO Last administered on 11/01/16t 23:14; Admin Dose 1,200 MG; Start 11/01/16 at 21:00 Mental Status Exam Appearance: Unkept Attitude: Pleasant, Cooperative Behavior: No unusual behavior Affect: Labile Mood: Euthymic Thought Process/Associations: Logical/Sequential, Goal Directed (generally) Speech Production: Normal Speech Rate: Normal Speech Articulation: Normal Thought Content: Catholic preoccupation, Perseveration Danger to Self/Suicidal Ideati: None Danger to Others: Thoughts/Plans of Harming Others (patient identified another patient who he is irritated with.) Delusions: Paranoid (Endorses), Grandiose (Endorses) Consciousness: Alert Orientation: Person, Place, Date, Situation Memory: Grossly Intact Estimate Intellectual Function: Average Basis for IQ estimate: Awareness current events, Word use/vocabulary, Educational history Attention/Concentration & Cogn: Impaired Insight: Limited Judgement: Limited Mental Health Plan The patient is a 46-year-old male with a history of schizoaffective disorder, bipolar type, who presents with decompensation having stopped taking his antipsychotic and one of his mood stabilizers while remaining on lithium. Since admission to the unit he has been demonstrating manic behavior with distractibility, intrusiveness, and is requiring frequent redirection. On 7 9 PM he became agitated refused to follow redirections and was threatening and posturing in an aggressive manner. He has been in seclusion for most of the night and required by mouth and IM Thorazine in order to calm threatening behavior. Juan Francisco reports feeling hostile and told me today that he is "I am the devil man" " if you do not stop that other patient from bothering me I am going to take him out". He continues to feel that the current medication regimen has been very effective but does not recognize the increase in delusional thought, intrusive behavior or threatening behavior. I had recently decreased his Klonopin to when necessary and believe that this may have been too early. It appears he has had a recurrence of alverto and psychotic thought. I talked with him about increasing Thorazine and Klonopin to deal with this and he agreed. Staff reports that he has been cooperative and nonviolent for the past 24 hours. He is continuing to struggle with frequent irritability and is again beginning to exhibit Bizarre behavior in the form of wearing his underwear under his head or stating the above delusional statements. [place] I 1. Schizoaffective disorder, bipolar type. 2. Alcohol use disorder in partial remission. 3. Cannabis use disorder. [place] II Deferred. [place] III Right hand edema and superficial lacerations, elevated creatinine kinase (resolving). [place] IV Moderate to severe. [place] V Global assessment of functionin. Treatments Patient is being provided with a high degree of safety through our unit structure and active adult engagement provided by our mental health professionals, mental health technicians, psychiatric nurses and myself. We are focusing on developing improved coping skills and identifying stressors that may have led to current episode. We will attempt to: * Integrate into therapeutic groups, milieu and individual therapy. * Maintain in a closely monitored and structured unit * Provide low-stimulation environment * Obtain collateral data to assist in treatment planning * Assess degree of lability of affect and impulse control * Complete safety plan * Decrease frequency of relapse and need for re-hospitalization * Denies thoughts of harm to self and/or others * Establish a consistent sleep pattern * Medication effective in stabilization of mood and/or thought process * Reduce the risk of imminent harm to self and/or others by providing a safe environment * Tolerates medication without side effects Patient will be on the following psychiatric medications: Eskalith to 1200 mg at bedtime Increase Thorazine to 100 mg every morning, 100 mg at noon, 300 mg at bedtime Thorazine 100 mg by mouth or IM every 2 hours as needed for severe agitation or threatening behavior Increase Klonopin to 0.5 mg 2 times a day Labs: lithium 11/01/2016 equal to 0.5 Patient's legal status Patient is on a 14 day involuntary treatment hold. Anticipated number of hospital days to achieve above goals: 10 Disposition: Home Zaire Cardoza MD Nov 02, 2016 14:38
--- NOTE | 2016-11-02 16:43 | NUR ---
[id number]. nurs. S: "He is still crowding me and copying me, won't stay out of my space I just want my small bubble he can have the rest of it. O:Pt coming to staff to c/o peers non observance of requests to stay at appropriate distance from peer. Pt given ativan 1 mg for anxiety re what he perceived as peers intrusive behaviour with aspirin 650mg for back and leg pain at 1310. Pt continued restless again on unit looking for mechanical bits and pieces to play with, wanting and refused a closer look at med scanner. Pt again asking for meds for pain and anxiety and given motrin 600mg and ativan 1mg. at 1616. Pt carrying paperwk and other belongings around with him. Pt getting embroiled with peers pxs manner quite childlike with poor insight poor social skills. easily triggered by mostly neutral stim , and easily reactive and needing direction to avoid altercation or making threatening comments, then qualifying that I would never do that. Pt seems to have some insight re. prev. seclusion. Overall maintaining control in other respects. Still focused on family pxs and not perceiving any deficits in own functioning. P:CNCP
[2016-11-02] MEDS: Magnesium Hydroxide 10 mL Oral Concentration PO PRN (17:15)
--- NOTE | 2016-11-02 17:17 | NUR ---
[facility] Day Shift Pt affect and behavior unchanged from previous shifts. Pt maintained behavioral control throughout the shift. Pt affect appears mostly flat, preoccupied. Pt spends most of the shift pacing the unit, attempting to interact with peers, and resting in his room. Pt speech and behavior remain nonsensical, bizarre. Pt is mostly appropriate with staff and peers when active on the unit, but is occasionally intrusive/inappropriate, but has not required redirection this shift. Pt occasionally expresses some paranoid delusions regarding his peers. Pt attended community meeting and passively participated in afternoon group activities. Pt has attended all meals at this time and has eaten approx 100% of all meals.
[2016-11-02] MEDS: Benzocaine-Menthol Lozenge 2/Pkg PO PRN (21:06)
--- NOTE | 2016-11-02 22:35 | NUR ---
Observations 1900 to 0700 Pt attended and participated in wrap up group. Pt ate a snack. Pt spends free time roaming unit, busying himself, including writing notes and cleaning. Pt social with peers and staff but unable to maintain appropriate behavior. Staff completed 15 min close observations as ordered.
--- NOTE | 2016-11-03 01:23 | NUR ---
Nursing Noc Pt still presents hypomanic, pressured speech, tangential thought processes, and easily irritated. Delusional paranoid thought processes. Routinely asking for different needs or medications for pain or anxiety. Noted to be first asleep at 0015. Continuing to monitor mood behavior and emotional state. Q15 minute safety checks throughout the shift as directed. CP Addendum: 11/03/16 at 0549 by KOURTNEY CONROY RN Pt to nursing station at 0545 reporting that he uses a sleep apnea machine and if he doesn't get one here now he is going to raul everyone. Brief Writer asked patient if someone could bring his in, pt responded no "mine quit working so I busted in all up" Pt then ambulated back to room.
[2016-11-03] MEDS: LORazepam 1 mg Tablet PO PRN ×2 (07:27→15:39)
[2016-11-03] MEDS: DICLOFENAC 0.1% TOPICAL SCH (08:30)
[2016-11-03] MEDS: Fluticasone 0.05% 15 Spray/2 Gm 16 Gm Nasal Spray NOSTRIL SCH ×2 (08:32→21:03)
[2016-11-03] MEDS: Mupirocin 2% 22 Gm Ointment TOPICAL SCH ×2 (08:33→21:02)
[2016-11-03] MEDS: Bacitracin Zinc-Polymyxin B 30 Gm Ointment TOPICAL SCH ×3 (08:34→21:02)
--- NOTE | 2016-11-03 14:29 | PCM.PNPSY ---
Subjective Date of Service Nov 03, 2016 Subjective I spent 30 minutes both reviewing treatment plan with our clinical team, interviewing the patient and providing supportive/educational psychotherapy. I spent more than 50% of the time counseling the patient. Juan Francisco reports feeling less hostile but did reiterate that if other patients bothering me I am going to take them out". He was not specific about any specific patient or staff. I notified the staffing specialist in the therapy team. I discussed the case with Dr. Westfall. He continues to feel that the current medication regimen has been very effective. He is requesting a decrease in Thorazine due to sedation but does not recognize his hostile statements and intrusive behaviors a problem. I had recently decreased his Klonopin to when necessary and believe that this may have been too early. It appears he has had a recurrence of alverto and psychotic thought. Staff reports that he has been cooperative and nonviolent for the past 24 hours. He is continuing to struggle with frequent irritability and is again beginning to exhibit Bizarre behavior in the form of wearing his underwear under his head or stating the above delusional statements. He slept 6 hours and is now reporting multiple delusional thoughts and impulses to harm others.. Current Medications Current Medications Chlorpromazine 300 mg HS PO Last administered on 11/02/16 22:17; Admin Dose 300 MG; Start 11/02/16 at 21:00 Clonazepam 0.5 mg BID PO Last administered on 11/03/16 08:26; Admin Dose 0.5 MG ; Start 11/02/16 at 20:30 [place] Carbonate 1,200 mg HS PO Last administered on 11/02/16 21:05; Admin Dose 1,200 MG; Start 11/01/16 at 21:00 Mental Status Exam Appearance: Unkept Attitude: Uncooperative, Hostile/Threatening Behavior: Distractible Affect: Labile Mood: Irritable, Dysthymic Thought Process/Associations: Loose, Tangential Speech Production: Loud Speech Rate: Normal Speech Articulation: Normal Thought Content: Oriental Orthodox preoccupation, Perseveration Danger to Self/Suicidal Ideati: None Danger to Others: Thoughts/Plans of Harming Others (patient identified another patient who he is irritated with.) Delusions: Paranoid (Endorses), Grandiose (Endorses) Consciousness: Hyper-vigilant Orientation: Person, Place, Date, Situation Memory: Grossly Intact Estimate Intellectual Function: Average Basis for IQ estimate: Awareness current events, Word use/vocabulary, Educational history Attention/Concentration & Cogn: Impaired Insight: Limited Judgement: Limited Mental Health Plan The patient is a 46-year-old male with a history of schizoaffective disorder, bipolar type, who presents with decompensation having stopped taking his antipsychotic and one of his mood stabilizers while remaining on lithium. Since admission to the unit he has been demonstrating manic behavior with distractibility, intrusiveness, and is requiring frequent redirection. On 7 9 PM he became agitated refused to follow redirections and was threatening and posturing in an aggressive manner. He has been in seclusion for most of the night and required by mouth and IM Thorazine in order to calm threatening behavior. He continues to feel that the current medication regimen has been very effective. He is requesting a decrease in Thorazine due to sedation but does not recognize his hostile statements and intrusive behaviors a problem. I had recently decreased his Klonopin to when necessary and believe that this may have been too early. It appears he has had a recurrence of alverto and psychotic thought. Staff reports that he has been cooperative and nonviolent for the past 24 hours. He is continuing to struggle with frequent irritability and is again beginning to exhibit Bizarre behavior in the form of wearing his underwear under his head or stating the above delusional statements. He slept 6 hours and is now reporting multiple delusional thoughts and impulses to harm others. [place] 1. Schizoaffective disorder, bipolar type. 2. Alcohol use disorder in partial remission. 3. Cannabis use disorder. [place] II Deferred. [place] III Right hand edema and superficial lacerations, elevated creatinine kinase (resolving). [place] IV Moderate to severe. [place] V Global assessment of functionin. Treatments Patient is being provided with a high degree of safety through our unit structure and active adult engagement provided by our mental health professionals, mental health technicians, psychiatric nurses and myself. We are focusing on developing improved coping skills and identifying stressors that may have led to current episode. We will attempt to: * Integrate into therapeutic groups, milieu and individual therapy. * Maintain in a closely monitored and structured unit * Provide low-stimulation environment * Obtain collateral data to assist in treatment planning * Assess degree of lability of affect and impulse control * Complete safety plan * Decrease frequency of relapse and need for re-hospitalization * Denies thoughts of harm to self and/or others * Establish a consistent sleep pattern * Medication effective in stabilization of mood and/or thought process * Reduce the risk of imminent harm to self and/or others by providing a safe environment * Tolerates medication without side effects Patient will be on the following psychiatric medications: Eskalith to 1200 mg at bedtime (increased from 900 mg to 1200 mg on 11/01/2016). Thorazine to 100 mg every morning, 100 mg at noon, 300 mg at bedtime Thorazine 100 mg by mouth or IM every 2 hours as needed for severe agitation or threatening behavior Klonopin to 0.5 mg 2 times a day Labs: lithium 11/01/2016 equal to 0.5 Patient's legal status Patient is on a 14 day involuntary treatment hold. Anticipated number of hospital days to achieve above goals: 10 Disposition: Home Zaire Cardoza MD Nov 03, 2016 14:29
[2016-11-03 15:29] VITALS: BP 114/88; PULSE 74; RESP 16
--- NOTE | 2016-11-03 16:03 | NUR ---
Nursing Dayshift: S: "It hurts on my leg here, and my foot here ..." O: Patient c/o pain in numerous places at a 7/10 receiving aspirin 650 mg and Ativan 2 mg for 810 anxiety at 1539 with good effective relief per patient. Had received Ativan earlier AM at 0727 for c/o 10/23 anxiety with effective relief per patient. Has been out in the public areas much of the shift. Eating well at meals. Cordial though has an edge during interaction. Social with peers. Spending time in the group room with staff and peers. A: Cooperative. Interactive. P: CPOC. Monitor mood and behavior.
--- NOTE | 2016-11-03 18:47 | NUR ---
spiritual care: pt request/follow conversational visit. pt offered prayer and mostly linear thoughts on his placement plans, douglas, prayer and friendships. He shared story of recent care and encounter with peers, reflective, calm manner. pt requested eucharistic visit next week which i'll plan to arrange.
--- NOTE | 2016-11-03 18:56 | NUR ---
[facility] Day Shift Pt affect and behavior unchanged from previous shifts. Pt maintained behavioral control throughout the shift. Pt affect appears mostly flat, preoccupied. Pt spends most of the shift pacing the unit, attempting to interact with peers, and resting in his room. Pt speech and behavior remain nonsensical, bizarre. Pt is mostly appropriate with staff and peers when active on the unit, but is occasionally intrusive/inappropriate, but has not required redirection this shift. Pt occasionally expresses some paranoid delusions regarding his peers. Pt passively participated in afternoon group activities. Pt has attended all meals at this time and has eaten approx 100% of all meals.
[2016-11-03] MEDS: Benzocaine-Menthol Lozenge 2/Pkg PO PRN (21:02)
--- NOTE | 2016-11-04 05:22 | NUR ---
Nursing Note Box Office Manager 7pm to 7am Pt visible on unit, well groomed, calm, appropriate, cooperative and interacting with select peers. Pt thought process logical and linear for the most part, no delusional content or bizarre bx observed. Pt took HS medications without issue and went to be at appox 0045. Pt is requesting that trazadone for insomnia be restarted and also requested a CPAP reporting that he used one at home. Informed requests would be conveyed to the oncoming RN. Monitored pt. with q 15 minutes face checks for safety, location and accountability.
[2016-11-04] MEDS: Fluticasone 0.05% 15 Spray/2 Gm 16 Gm Nasal Spray NOSTRIL SCH ×2 (07:54→20:42)
[2016-11-04] MEDS: Mupirocin 2% 22 Gm Ointment TOPICAL SCH ×2 (07:56→20:35)
[2016-11-04] MEDS: Bacitracin Zinc-Polymyxin B 30 Gm Ointment TOPICAL SCH ×3 (07:57→20:37)
[2016-11-04] MEDS: LORazepam 1 mg Tablet PO PRN (08:05)
[2016-11-04] MEDS: DICLOFENAC 0.1% TOPICAL SCH (08:30)
[2016-11-04 09:00] VITALS: BP 122/75; PULSE 84; RESP 20
--- NOTE | 2016-11-04 14:09 | NUR ---
nursing note day shift S/O-"I need my meds right now with Ativan and Tylenol!" Pt. reported he had generalized pain rated at 4/10. He was given 650 mg. of Tylenol PO at 0759 with pain reduced to 2/10 30 min. reported later. He was edgy when asking for his meds insisting on documentation writer using gloves while opening up the packets of pills. He started talking in a bizarre way about two of his brothers, and when asked if they lived close by, he became paranoid and said it wasn't any of my business. He was given 2 mg. of Ativan PO per request at 0805 for anxiety rated at 8/10. 2 hours later he wanted to take a short nap. He has been appropriate with peers and stated he slept well and likes his meals. In the afternoon he wanted to do a bible study with one of his peers. A-Delusional. Lack of insight. P-Monitor for safety per protocol. Assess efficacy of meds to manage target sxs. Encourage engagement in groups when able.
--- NOTE | 2016-11-04 15:44 | NUR ---
Gas Analyst/Counselor S/O: Patient requested clippers to cut his suggs with. He denies any SI or HI, no AVH aside from god, he rated his anxiety at a 5.5 and no depression. A: Patient stated that he feels that another patient is antagonizing him. He feels agitated by the patient and states that he is the reason for his elevated anxiety. He stated that his mood is close to a 10, meaning excellent. Patient inquired about his court date. P: Follow care plan and coordinate with outpatient providers.
[2016-11-04] MEDS: diphenhydrAMINE 25 mg Capsule PO PRN ×2 (16:19→21:09)
--- NOTE | 2016-11-04 17:44 | NUR ---
Observations 0700 to 1900 Pt attended community meeting. Pt went out on patio. Pt ate a snack. Pt is social with peers and odd behaviors were limited during shift compared to previous shifts. Pt maintained behavioral control. Breakfast: 100%. Lunch: 100%. Staff completed 15 min close observations as ordered.
--- NOTE | 2016-11-04 20:07 | PCM.PNPSY ---
Subjective Date of Service Nov 04, 2016 Subjective Patient reports that he is doing "excellent" and that his mood is 10/10 good. He reports talking to the tile professional has been helpful. He reports that he feels that he has a little too much Thorazine and would like to increase lithium to 1500mg; however, patient was just increased to 1200mg and had previously had a blood level of around 1. He also reported that there is a warrant out regarding a previous case for which he did not appear due to hospitalization. He reports not liking a peer who he feels is deliberately staring at him and taunting him. The patient would like to use a small kerchief "do rag" to protect his right forearm. No other side effect c/o. Sleep: "okay." Appetite: Like a horese Suicidal and homicidal ideation: Denies Auditory hallucinations: Denies Visual hallucinations: Denies Other Psychotic Symptoms: some paranoia/disorganization Anxiety: increased due to peer 5-6/10 Depression: 0/10 Current Medications Current Medications Chlorpromazine 300 mg HS PO Last administered on 11/03/16 23:10; Admin Dose 300 MG; Start 11/02/16 at 21:00 Clonazepam 0.5 mg BID PO Last administered on 11/04/16 07:55; Admin Dose 0.5 MG ; Start 11/02/16 at 20:30 Mental Status Exam Appearance: Neat/well groomed Attitude: Pleasant, Cooperative Behavior: Overtly anxious, Distractible Affect: Well Modulated/Appropriate, Restricted Mood: Irritable, Anxious Thought Process/Associations: Logical/Sequential Speech Production: Normal Speech Rate: Normal Speech Articulation: Normal Thought Content: Appropriate, Perseveration Danger to Self/Suicidal Ideati: None Danger to Others: None Delusions: Paranoid (Endorses) Hallucinations: Auditory (Denies), Visual (Denies) Orientation: Person, Place, Date, Situation Memory: Grossly Intact Estimate Intellectual Function: Average Basis for IQ estimate: Awareness current events, Word use/vocabulary, Educational history Attention/Concentration & Cogn: Impaired Insight: Limited Judgement: Limited Mental Health Plan The patient is a 46-year-old male with a history of schizoaffective disorder, bipolar type, who presents with decompensation having stopped taking his antipsychotic and one of his mood stabilizers while remaining on lithium. The patient appeared to have a slight demargination reaction with a white count of 17,000 and had a slightly elevated creatine kinase but had dropped the day following assessment in the emergency department. His lithium level had been 0.6 which indicated at least partial compliance. The patient was agreeable to restarting lithium and quetiapine. The patient became increasingly irritable after lithium was lowered and so was switched to chlorpromazine with improved results. [place] was recently increased back to 1200mg at bedtime and is still stabilizing. Discussed waiting until he has stabilized further until lowering chlorpromazine. As the patient is taking lithium, use of NSAIDs such as aspirin is contraindicated, however, since patient states he will continue to use aspirin on discharge, will monitor in controlled environment to determine effect on blood level. [place] 1. Schizoaffective disorder, bipolar type. 2. Alcohol use disorder in partial remission. 3. Cannabis use disorder. [place] II Deferred. [place] III Right hand edema and superficial lacerations, elevated creatinine kinase (resolving). [place] IV Moderate to severe. [place] V Global assessment of functionin. Treatments 1. The patient is admitted to the inpatient unit and will be provided a safe and secure environment. 2. The patient is denying current active suicidality and is not in need of a one-to-one at this time. 3. The patient is encouraged to participate with group and milieu activities. 4. The patient will be seen by the treatment team on a daily basis to assess symptoms, side effects, and response to treatment. 5. The patient will be continued on Eskalith 1200mg nightly. As patient insists on using aspirin on discharge will not increase to 1500mg. 6. Thorazine to 100 mg every morning, 100 mg at noon, 300 mg at bedtime 7. Trazodone 100 mg nightly as needed for insomnia may repeat. 8. Aspirin 650mg po twice a day when necessary. Discussed limiting as the patient is on lithium. 9. Klonopin to 0.5 mg 2 times a day 10. Thorazine 100 mg by mouth or IM every 2 hours as needed for severe agitation or threatening behavior 11. Patient requested jury trial for 90 day MR 12. Anticipated length of stay is 10-14 days. Devonte Westfall MD Nov 04, 2016 20:07 environment * Tolerates medication without side effects Patient will be on the following psychiatric medications: Eskalith to 1200 mg at bedtime (increased from 900 mg to 1200 mg on 11/01/2016). Thorazine to 100 mg every morning, 100 mg at noon, 300 mg at bedtime Thorazine 100 mg by mouth or IM every 2 hours as needed for severe agitation or threatening behavior Klonopin to 0.5 mg 2 times a day Labs: lithium 11/01/2016 equal to 0.5 Patient's legal status Patient is on a 14 day involuntary treatment hold. Anticipated number of hospital days to achieve above goals: 10 Disposition: Home Devonte Westfall MD Nov 04, 2016 20:07
--- NOTE | 2016-11-04 21:01 | NUR ---
Nurses Note Evening Patient remains labile in mood with frequent demanding directives to staff with resultant agitation if his needs are not met immediately. Patient remains religiously preoccupied demanding his belongings with vague threats of harm if not satisfied. Patient has been medication compliant without adverse effects. Will continue to reality test,limit set with continued medication compliance. Addendum: 11/04/16 at 2128 by VALERIY JOSEPH RN Amended: Links added.
--- NOTE | 2016-11-05 02:15 | NUR ---
nursing, nights, 11-7 s- what about my stuff in the closet ? o- initially focused on belongings and was somewhat difficult to redirect. alternated between his room and the dinning room. appeared to sleep after 0115. assessed q 15 minutes. a- volatile, able to safe appropriate behavior, no apparent physical distress. p- monitor behavior/emotional state, quality, times and amount of sleep, use and effect of medication. alban
[2016-11-05] MEDS: Fluticasone 0.05% 15 Spray/2 Gm 16 Gm Nasal Spray NOSTRIL SCH ×2 (07:35→20:43)
[2016-11-05] MEDS: Mupirocin 2% 22 Gm Ointment TOPICAL SCH ×2 (07:37→20:43)
[2016-11-05] MEDS: Bacitracin Zinc-Polymyxin B 30 Gm Ointment TOPICAL SCH ×3 (07:38→20:43)
[2016-11-05 08:00] VITALS: BP 136/89; PULSE 77; RESP 19
[2016-11-05] MEDS: DICLOFENAC 0.1% TOPICAL SCH (08:30)
[2016-11-05] MEDS: diphenhydrAMINE 25 mg Capsule PO PRN (09:57)
--- NOTE | 2016-11-05 10:44 | NUR ---
Nursing Day Pt busy and active on the unit. He ate breakfast and participated in morning group. He took his scheduled medication without difficulty. He has maintained behavioral control. He c/o KAMARA pain rated 9/10 and received Tylenol 650 mg po prn @ 0739. Headache resolved. Later during group he requested and received Benadryl 50mg po prn for itching @ 0957. Pt itching both arms and stating "I am allergic to bad people". Benadryl appears effective, pt no longer itching his arms and body and making no further complaints. Addendum: 11/05/16 at 1305 by TIERRA BELLO RN Pt requested and received Aspirin 650 mg po prn @ 1300 for low back/tendon pain rated 8/10. Will reassess medication efficacy in an hour.
[2016-11-05] MEDS: LORazepam 1 mg Tablet PO PRN ×2 (15:09→21:02)
--- NOTE | 2016-11-05 18:49 | NUR ---
Observations [id number] Pt continues to be liable, unpredictable and demanding at times. Pt focused on obtaining items from back to inventory. This proposal writer informed pt that items will be reviewed upon discharge. Pt active on unit, participating in group, writing on write board in group room as therapy and listening to music. Pt expressed that one of the other pt's is "full of demons" and intentionally trying to bother him. "That geeta wants to ...but I'm not doing to help him do it. I'd get in trouble." Pt continues to be religiously preoccupied, focused on rosary. Pt more redirectable then observed in previous week. Pt attended all meals, eating 100%. He was observed every 15 minutes of shift as directed.
--- NOTE | 2016-11-05 19:58 | NUR ---
Nurses Note Evening Patient remains in behavioral control thus far. He has been demanding with multiple requests from staff and has been irritated with their responses.He remains medication compliant without adverse effect. Continue to encourage medication compliance, follow up and improved insight into illness and management of same. Addendum: 11/05/16 at 2010 by VALERIY JOSEPH RN Amended: Links added.
--- NOTE | 2016-11-05 20:24 | PCM.PNPSY ---
Subjective Date of Service Nov 05, 2016 Subjective The patient reports that he is "peachy keen." He reports feeling like he is doing well doing chores, doing bible study, cleaning his room. He reports still concerned about peer, but less so. Patient reports difficulty with sleep secondary to sleep apnea, but does not have machine. His car is reportedly safely parked at [facility]. The patient would like to talk to appellate court clerk about hearing and would like to keep track of am weight. No other side effect c/o. Sleep: 3.25hrs, see above Appetite: "Ferocious" Suicidal and homicidal ideation: Denies Auditory hallucinations: Denies Visual hallucinations: Denies Other Psychotic Symptoms: some paranoia/disorganization Anxiety: misses family, homeless Depression: "not too bad, miss my dad." Current Medications Current Medications Trazodone HCl 100 mg HS PRN PO Last administered on 11/04/16t 22:32; Admin Dose 100 MG; Start 11/04/16 at 15:20 Mental Status Exam Appearance: Neat/well groomed Attitude: Pleasant, Cooperative Behavior: Overtly anxious, Distractible Affect: Well Modulated/Appropriate Mood: Anxious Thought Process/Associations: Logical/Sequential Speech Production: Normal Speech Rate: Normal Speech Articulation: Normal Thought Content: Appropriate, Perseveration Danger to Self/Suicidal Ideati: None Danger to Others: None Delusions: Paranoid (Endorses but decreased) Hallucinations: Auditory (Denies), Visual (Denies) Orientation: Person, Place, Date, Situation Memory: Grossly Intact Estimate Intellectual Function: Average Basis for IQ estimate: Awareness current events, Word use/vocabulary, Educational history Attention/Concentration & Cogn: Impaired Insight: Limited Judgement: Limited Mental Health Plan The patient is a 46-year-old male with a history of schizoaffective disorder, bipolar type, who presents with decompensation having stopped taking his antipsychotic and one of his mood stabilizers while remaining on lithium. The patient appeared to have a slight demargination reaction with a white count of 17,000 and had a slightly elevated creatine kinase but had dropped the day following assessment in the emergency department. His lithium level had been 0.6 which indicated at least partial compliance. The patient was agreeable to restarting lithium and quetiapine. The patient became increasingly irritable after lithium was lowered and so was switched to chlorpromazine with improved results. [place] was recently increased back to 1200mg at bedtime and is still stabilizing. Discussed waiting until he has stabilized further until lowering chlorpromazine. As the patient is taking lithium, use of NSAIDs such as aspirin is contraindicated, however, since patient states he will continue to use aspirin on discharge, will monitor in controlled environment to determine effect on blood level. Will obtain wedge to help with head elevation. Appears to be responding to treatment. Will follow-up with case management on Sunday regarding housing options. [place] I 1. Schizoaffective disorder, bipolar type. 2. Alcohol use disorder in partial remission. 3. Cannabis use disorder. [place] II Deferred. [place] III Right hand edema and superficial lacerations, elevated creatinine kinase (resolving). [place] IV Moderate to severe. [place] V Global assessment of functionin. Treatments 1. The patient is admitted to the inpatient unit and will be provided a safe and secure environment. 2. The patient is denying current active suicidality and is not in need of a one-to-one at this time. 3. The patient is encouraged to participate with group and milieu activities. 4. The patient will be seen by the treatment team on a daily basis to assess symptoms, side effects, and response to treatment. 5. The patient will be continued on Eskalith 1200mg nightly. As patient insists on using aspirin on discharge will not increase to 1500mg. 6. Thorazine to 100 mg every morning, 100 mg at noon, 300 mg at bedtime 7. Trazodone 100 mg nightly as needed for insomnia may repeat. 8. Aspirin 650mg po twice a day when necessary. Discussed limiting as the patient is on lithium. 9. Klonopin to 0.5 mg 2 times a day 10. Thorazine 100 mg by mouth or IM every 2 hours as needed for severe agitation or threatening behavior 11. Patient requested jury trial for 90 day MR 12. Daily weight per request; Wedge for back secondary to sleep apnea 12. Anticipated length of stay is 10-14 days. Devonte Westfall MD Nov 05, 2016 20:24
[2016-11-05] MEDS: hydrOXYzine Pamoate 25 mg Capsule PO PRN (22:21)
[2016-11-05] MEDS: Magnesium Hydroxide 10 mL Oral Concentration PO PRN (22:21)
--- NOTE | 2016-11-06 07:21 | NUR ---
Juan Francisco España Nursing Note Archivist Economic History 11pm to 7am Pt asleep at start of shift and remained asleep for the duration. No issues observed or reported. Monitored pt with q 15 minute face checks for safety, location, and accountability.
[2016-11-06 07:45] VITALS: BP 133/82; PULSE 74; RESP 19
[2016-11-06] MEDS: DICLOFENAC 0.1% TOPICAL SCH (08:30)
[2016-11-06] MEDS: Fluticasone 0.05% 15 Spray/2 Gm 16 Gm Nasal Spray NOSTRIL SCH ×2 (09:23→19:44)
[2016-11-06] MEDS: Bacitracin Zinc-Polymyxin B 30 Gm Ointment TOPICAL SCH ×3 (09:26→19:45)
[2016-11-06] MEDS: Mupirocin 2% 22 Gm Ointment TOPICAL SCH ×2 (09:26→19:44)
[2016-11-06] MEDS: diphenhydrAMINE 25 mg Capsule PO PRN ×2 (10:54→10:57)
--- NOTE | 2016-11-06 14:01 | NUR ---
Nursing Days Pt busy, demanding and somewhat irritable when demands are not immediately met. Maintained behavioral control. Took scheduled medication without difficulty. Eating all meals. Talked with his [facility] health counselor, Apoorva, on the phone. He participates in all groups, cooperative with lab draw. No complaints other than wanting immediate needs met quickly such as cups, tv, music, etc..
[2016-11-06] MEDS: LORazepam 1 mg Tablet PO PRN (15:13)
--- NOTE | 2016-11-06 15:21 | NUR ---
call manager/Counselor S:"I'm eating like a horse." O: Patient denies any SI or HI, no AVH, no depression and he rated his anxiety at a 6. A: Patient is cooperative but tangential and still religiously preoccupied. He would like a crisis bed with [facility] in [place]. Will talk to cashier courtesy booth re:MATHEUS. P:Follow care plan and coordinate with outpatient providers.
--- NOTE | 2016-11-06 16:25 | NUR ---
spiritual care: follow up/pt request for eucharistic visit accompanied raj teacher asst for visit in piano room. pt domonique, followed brief eucharistic ritual and engaged in tangential conversation including, apparently, recent conflict with peer. Pt described his reactions including anger and both euc teacher asst and i suggested intercessory prayer. pt said he felt better to be able to pray than fixate on the conflict. Pt domonique, tangential, spoke of his bandanas and his wearing one tied around his wrist. [facility] teacher asst encouraged him to use fingers for prayer-counting if rosary is not available.
--- NOTE | 2016-11-06 17:32 | NUR ---
Observations [id number] Pt awake in dining area upon start of shift. Mentioned to this documentation writer the importance of watching a presidential address at 1215- "I need to know more about my health care rights." Pt continues to be liable and demanding with requests. He got into a few arguments with other patients, but was able to be redirected by staff. Pt participated in unit activities, met with Jw. Pt also concerned about ticket he received prior to admissions and made phone calls to get situation resolved. He attended all meals, eating 100%. Pt was observed every 15 minutes of shift as directed.
--- NOTE | 2016-11-06 21:42 | PCM.PNPSY ---
Subjective Date of Service Nov 06, 2016 Subjective The patient reports that he is "Excellent." The patient was concerned about the president's speech and health care. He reported that a peer with whom he has some difficulty was again annoying him. He reports that he would like to have follow-up with Kusum Holden. No other side effect c/o. Sleep: 6.75hrs, see above Appetite: "Like a horse" Suicidal and homicidal ideation: Denies Auditory hallucinations: Denies Visual hallucinations: Denies Other Psychotic Symptoms: some paranoia/disorganization Anxiety: going down 6/10 Depression: 0/10 Mental Status Exam Appearance: Neat/well groomed Attitude: Pleasant, Cooperative Behavior: No unusual behavior, Distractible Affect: Well Modulated/Appropriate Mood: Anxious Thought Process/Associations: Logical/Sequential Speech Production: Normal Speech Rate: Normal Speech Articulation: Normal Thought Content: Appropriate, Perseveration Danger to Self/Suicidal Ideati: None Danger to Others: None Delusions: Paranoid (Endorses but decreased) Hallucinations: Auditory (Denies), Visual (Denies) Orientation: Person, Place, Date, Situation Memory: Grossly Intact Estimate Intellectual Function: Average Basis for IQ estimate: Awareness current events, Word use/vocabulary, Educational history Attention/Concentration & Cogn: Impaired Insight: Limited Judgement: Limited Result Diagram: 11/06/16 0900 Mental Health Plan The patient is a 46-year-old male with a history of schizoaffective disorder, bipolar type, who presents with decompensation having stopped taking his antipsychotic and one of his mood stabilizers while remaining on lithium. The patient appeared to have a slight demargination reaction with a white count of 17,000 and had a slightly elevated creatine kinase but had dropped the day following assessment in the emergency department. His lithium level had been 0.6 which indicated at least partial compliance. The patient was agreeable to restarting lithium and quetiapine. The patient became increasingly irritable after lithium was lowered and so was switched to chlorpromazine with improved results. [place] was recently increased back to 1200mg at bedtime and is still stabilizing. As the patient is taking lithium, use of NSAIDs such as aspirin is contraindicated, however, since patient states he will continue to use aspirin on discharge, will monitor in controlled environment to determine effect on blood level. [place] level 0.5. Wedge reported helpful with apnea. Will need to follow-up with kusum Holden regarding housing options. [place] I 1. Schizoaffective disorder, bipolar type. 2. Alcohol use disorder in partial remission. 3. Cannabis use disorder. [place] II Deferred. [place] III Right hand edema and superficial lacerations, elevated creatinine kinase (resolving). [place] IV Moderate to severe. [place] V Global assessment of functionin. Treatments 1. The patient is admitted to the inpatient unit and will be provided a safe and secure environment. 2. The patient is denying current active suicidality and is not in need of a one-to-one at this time. 3. The patient is encouraged to participate with group and milieu activities. 4. The patient will be seen by the treatment team on a daily basis to assess symptoms, side effects, and response to treatment. 5. The patient will be continued on Eskalith 1200mg nightly. As patient insists on using aspirin on discharge will not increase to 1500mg. 6. Thorazine to 100 mg every morning, 100 mg at noon, 300 mg at bedtime 7. Trazodone 100 mg nightly as needed for insomnia may repeat. 8. Aspirin 650mg po twice a day when necessary. Discussed limiting as the patient is on lithium. 9. Klonopin to 0.5 mg 2 times a day 10. Thorazine 100 mg by mouth or IM every 2 hours as needed for severe agitation or threatening behavior 11. Patient agreeable today to 90 day LR. 12. Daily weight per request; Wedge for back secondary to sleep apnea 12. Anticipated length of stay is 10-14 days. Devonte Westfall MD Nov 06, 2016 21:42
--- NOTE | 2016-11-06 23:21 | NUR ---
NURS NOTE EVEING "I need to get my medications at exactly 10:30." Pt continues to be demanding with staff. Reported elevated anxiety and too ativan at 1573 and klonipin around 1900. Pt continued to appear anxious but has maintained behavioral control. Pt ate all meals and took all scheduled medications.
[2016-11-07] MEDS: LORazepam 1 mg Tablet PO PRN ×2 (00:14→12:42)
--- NOTE | 2016-11-07 06:33 | NUR ---
Nursing Note Straightening Roll Operator 11pm to 7am Pt awake at start of shift, made a few requests of staff to cut out a picture and mail a letter. He was calm, patient and appropriate, took HS meds late per his request and slept through the night with minimal interruption. Monitored pt with q 15 minute face checks for safety, location and accountability.
[2016-11-07] MEDS: DICLOFENAC 0.1% TOPICAL SCH (08:30)
[2016-11-07] MEDS: Mupirocin 2% 22 Gm Ointment TOPICAL SCH ×2 (08:30→22:28)
[2016-11-07] MEDS: Bacitracin Zinc-Polymyxin B 30 Gm Ointment TOPICAL SCH ×3 (08:30→22:28)
[2016-11-07] MEDS: Fluticasone 0.05% 15 Spray/2 Gm 16 Gm Nasal Spray NOSTRIL SCH ×2 (09:20→22:26)
--- NOTE | 2016-11-07 14:47 | NUR ---
Mortgage Loan Officer/Counselor S:"What is the status of my housing?" O: Patient did not express any SI or HI, no AVH, no anxiety or depression. A: Patient's records were sent to [facility] in [place], [place], per the patient's request. Patient has been demanding of staff and making requests. He has been out on the unit, interacting with other patients. P: Follow care plan and coordinate with outpatient providers.
--- NOTE | 2016-11-07 15:12 | NUR ---
Nursing Days Pt busy, presents as less demanding today. Maintained behavioral control. Took scheduled medication without difficulty. Eating all meals. He participated in unit activities. . He requested and received Aspirin 650mg po and Ativan 2mg po prn for pain and anxiety. No further complaints made, medication appears effective.
--- NOTE | 2016-11-07 17:43 | NUR ---
Observations [id number] Pt appeared more cooperative, patient and friendly with peers and staff today. Pt attended all meals, eating 100%. He participated in group, conducted a bible study with peers who wanted to attend, and made phone calls. Pt less demanding and good with redirection. He also spent time on patio, and in the group room listening to music and drawing on the white board. Pt was observed every 15 minutes of shift, as directed.
--- NOTE | 2016-11-07 18:46 | DRSVH ---
PROCEDURE: X-RAY LEFT TIBIA/FIBULA, TWO VIEWS ([id number]) INDICATIONS: continued pain and discoloration TECHNIQUE: 2 views of the tibia and fibula were acquired. COMPARISON: [facility], CR, XR TIBIA FIBULA 2VW LT, 10/22/2016, 21:19. FINDINGS: Bones: No fractures or dislocations. No suspicious bony lesions. Soft tissues: No suspicious soft tissue calcifications or masses. IMPRESSION: Bones remain normal in appearance. No evidence for occult fracture or periosteal reaction is seen. There is some soft tissue swelling anterior to the tibia at the mid tibial level. Dictated by: Domenic Mesa M.D. on 11/07/2016 at 18:44 Approved by: Domenic Mesa M.D. on 11/07/2016 at 18:44
--- NOTE | 2016-11-07 21:11 | NUR ---
Nurses Note Evening Patient has remained in behavioral control. His mood has been low keyed,appropriate and pleasant. He remains medication compliant without adverse effects.Will continue to encourage appropriate interactions with others, continued medication compliance and improved insight into illness and management. Maintain q 15min. checks for safety and support. Addendum: 11/07/16 at 2127 by VALERIY JOSEPH RN Amended: Links added.
--- NOTE | 2016-11-07 21:35 | PCM.PNPSY ---
Subjective Date of Service Nov 07, 2016 Subjective The patient reports that he has been "great until the last 15-20 minutes and I got all tired" The patient reported that he would like assistance with vocational training from [facility] as he cannot currently return to work. He reports that he would like an increase in his trazodone as he did not sleep as well. Patient awaiting testosterone results. Patient reports the need to get his cars to a safe place and needs to contact about insurance. Patient's left leg still somewhat lida and patient reports some tibial pain. No other side effect c/o. Sleep: 3 hrs, patient reports slept well Appetite: "Like a horse" Suicidal and homicidal ideation: Denies Auditory hallucinations: Denies Visual hallucinations: Denies Other Psychotic Symptoms: some paranoia/disorganization Anxiety:"a little" Depression: "just a bit from fatigue" Mental Status Exam Appearance: Neat/well groomed Attitude: Pleasant, Cooperative Behavior: No unusual behavior, Distractible Affect: Well Modulated/Appropriate Mood: Anxious Thought Process/Associations: Logical/Sequential Speech Production: Normal Speech Rate: Normal Speech Articulation: Normal Thought Content: Appropriate, Perseveration Danger to Self/Suicidal Ideati: None Danger to Others: None Delusions: Paranoid (mild at times) Hallucinations: Auditory (Denies), Visual (Denies) Orientation: Person, Place, Date, Situation Memory: Grossly Intact Estimate Intellectual Function: Average Basis for IQ estimate: Awareness current events, Word use/vocabulary, Educational history Attention/Concentration & Cogn: Impaired Insight: Limited Judgement: Limited Result Diagram: 11/06/16 0900 Mental Health Plan The patient is a 46-year-old male with a history of schizoaffective disorder, bipolar type, who presents with decompensation having stopped taking his antipsychotic and one of his mood stabilizers while remaining on lithium. The patient appeared to have a slight demargination reaction with a white count of 17,000 and had a slightly elevated creatine kinase but had dropped the day following assessment in the emergency department. His lithium level had been 0.6 which indicated at least partial compliance. The patient was agreeable to restarting lithium and quetiapine. The patient became increasingly irritable after lithium was lowered and so was switched to chlorpromazine with improved results. [place] was recently increased back to 1200mg at bedtime. As the patient is taking lithium, use of NSAIDs such as aspirin is contraindicated, however, since patient states he will continue to use aspirin on discharge, will monitor in controlled environment to determine effect on blood level. Most recent lithium level 0.5. Leg x-ray with no fracture and some soft tissue swelling. Will need to follow-up with kusum Holden regarding housing options. [place] I 1. Schizoaffective disorder, bipolar type. 2. Alcohol use disorder in partial remission. 3. Cannabis use disorder. [place] II Deferred. [place] III Right hand edema and superficial lacerations, elevated creatinine kinase (resolving). [place] IV Moderate to severe. [place] V Global assessment of functionin. Treatments 1. The patient is admitted to the inpatient unit and will be provided a safe and secure environment. 2. The patient is denying current active suicidality and is not in need of a one-to-one at this time. 3. The patient is encouraged to participate with group and milieu activities. 4. The patient will be seen by the treatment team on a daily basis to assess symptoms, side effects, and response to treatment. 5. The patient will be continued on Eskalith 1200mg nightly. As patient insists on using aspirin on discharge will not increase to 1500mg. 6. Thorazine to 100 mg every morning, 100 mg at noon, 300 mg at bedtime 7. Trazodone 100 mg nightly as needed for insomnia may repeat. 8. Aspirin 650mg po twice a day when necessary. Discussed limiting as the patient is on lithium. 9. Klonopin to 0.5 mg 2 times a day 10. Thorazine 100 mg by mouth or IM every 2 hours as needed for severe agitation or threatening behavior 11. Patient agreeable to 90 day LR. 12. Daily weight per request; Wedge for back secondary to sleep apnea 12. Anticipated length of stay is 10-14 days. Devonte Westfall MD Nov 07, 2016 21:35
[2016-11-07] MEDS: diphenhydrAMINE 25 mg Capsule PO PRN (22:51)
--- NOTE | 2016-11-08 03:16 | NUR ---
Nursing, NOC Patient resting, appears to be sleeping comfortably. Benadryl and Trazadone PRN given at HS, both effective. Patient will have testosterone, free testosterone levels drawn in AM. New order received today: May have 2 cups of caffeine before 1400 QDay/migraines. Tib/fib XR today negative for fracture; showed "soft tissue swelling." Q15 min safety/room checks thru NOC.
[2016-11-08] MEDS: Mupirocin 2% 22 Gm Ointment TOPICAL SCH ×2 (08:10→22:35)
[2016-11-08] MEDS: Fluticasone 0.05% 15 Spray/2 Gm 16 Gm Nasal Spray NOSTRIL SCH ×2 (08:10→20:30)
[2016-11-08] MEDS: DICLOFENAC 0.1% TOPICAL SCH (08:11)
[2016-11-08] MEDS: Bacitracin Zinc-Polymyxin B 30 Gm Ointment TOPICAL SCH ×3 (08:11→22:35)
[2016-11-08] MEDS: LORazepam 1 mg Tablet PO PRN ×2 (08:41→16:40)
[2016-11-08 09:11] VITALS: BP 121/79; PULSE 67; RESP 18
--- NOTE | 2016-11-08 14:32 | NUR ---
Nursing Days Pt was irritated by a fellow male peer this morning and stated "It could get assaultive up here, I am just saying. The environment is ramping up." He problem solved and asked for ear plugs which he received. Pt then stated "It was just loud. I wasn't going to hit anyone." Pt has maintained good behavioral control, participated in unit activities, ate at all meals and taking medications as prescribed. He enjoyed time with the therapy dog and was seen socializing with select peers. Continue to monitor and support on the unit as needed. Addendum: 11/08/16 at 1439 by TIERRA BELLO RN Ativan 1mg po prn given @ 0840 for agitation with good effect.
--- NOTE | 2016-11-08 16:15 | NUR ---
[facility] Day Shift Pt maintained behavioral control throughout the shift. Pt affect appears mostly flat, brighter and more euthymic than noted on previous shifts. Pt spends most of the shift resting in his room, pacing the unit, and engaging with peers in unit activities. Pt is appropriate with staff and peers when active on the unit. Pt expressed some irritation with male peer in the AM, but did not require excessive redirection. Pt remains somewhat internally preoccupied and can be seen attending to internal stimuli while active on the unit (pt continues to talk to himself). Pt has attended all meals and has eaten approx 100% of all meals.
--- NOTE | 2016-11-08 17:30 | NUR ---
manager payer/Counselor: S/O: Patient only slept 5.75 hours last night per staff. Patient denies S/I and H/I. He denies auditory and visual hallucinations. He also denies auditory and visual hallucinations. Depression is 0/10 and anxiety is 0/10. A: Patient is cooperative, distractible, anxious, paranoid, limited insight, limited judgment. P: Follow care plan, coordinate with out-patient providers, monitor behavior.
--- NOTE | 2016-11-08 21:51 | PCM.PNPSY ---
Subjective Date of Service Nov 08, 2016 Subjective The patient reports that he is doing well and reported that although there was a patient annoying him, he would simply try to avoid him. Patient awaiting testosterone results. Patient's left leg still somewhat lida and patient reports some tibial pain. No other side effect c/o. Sleep: "good" Appetite: "Good" Suicidal and homicidal ideation: Denies Auditory hallucinations: Denies Visual hallucinations: Denies Other Psychotic Symptoms: some paranoia Anxiety: 0/10 Depression: 0/10 Current Medications Current Medications Trazodone HCl 100 mg HS PRN PO Last administered on 11/07/16t 22:51; Admin Dose 100 MG; Start 11/07/16 at 16:20 Mental Status Exam Appearance: Neat/well groomed Attitude: Pleasant, Cooperative Behavior: No unusual behavior Affect: Well Modulated/Appropriate Mood: Euthymic Thought Process/Associations: Logical/Sequential Speech Production: Normal Speech Rate: Normal Speech Articulation: Normal Thought Content: Appropriate, Perseveration Danger to Self/Suicidal Ideati: None Danger to Others: None Delusions: Paranoid (mild at times) Hallucinations: Auditory (Denies), Visual (Denies) Orientation: Person, Place, Date, Situation Memory: Grossly Intact Estimate Intellectual Function: Average Basis for IQ estimate: Awareness current events, Word use/vocabulary, Educational history Attention/Concentration & Cogn: Impaired Insight: Limited Judgement: Limited Result Diagram: 11/06/16 0900 Mental Health Plan The patient is a 46-year-old male with a history of schizoaffective disorder, bipolar type, who presents with decompensation having stopped taking his antipsychotic and one of his mood stabilizers while remaining on lithium. The patient appeared to have a slight demargination reaction with a white count of 17,000 and had a slightly elevated creatine kinase but had dropped the day following assessment in the emergency department. His lithium level had been 0.6 which indicated at least partial compliance. The patient was agreeable to restarting lithium and quetiapine. The patient became increasingly irritable after lithium was lowered and so was switched to chlorpromazine with improved results. [place] was recently increased back to 1200mg at bedtime. As the patient is taking lithium, use of NSAIDs such as aspirin is contraindicated, however, since patient states he will continue to use aspirin on discharge, will monitor in controlled environment to determine effect on blood level. Most recent lithium level 0.5. Leg x-ray with no fracture and some soft tissue swelling. Will need to follow-up with kusum Holden regarding housing options. Patient agreeable to triamcinolone cream. [place] I 1. Schizoaffective disorder, bipolar type. 2. Alcohol use disorder in partial remission. 3. Cannabis use disorder. [place] II Deferred. [place] III Right hand edema and superficial lacerations, elevated creatinine kinase (resolving). [place] IV Moderate to severe. [place] V Global assessment of functionin. Treatments 1. The patient is admitted to the inpatient unit and will be provided a safe and secure environment. 2. The patient is denying current active suicidality and is not in need of a one-to-one at this time. 3. The patient is encouraged to participate with group and milieu activities. 4. The patient will be seen by the treatment team on a daily basis to assess symptoms, side effects, and response to treatment. 5. The patient will be continued on Eskalith 1200mg nightly. As patient insists on using aspirin on discharge will not increase to 1500mg. 6. Thorazine to 100 mg every morning, 100 mg at noon, 300 mg at bedtime 7. Trazodone 100 mg nightly as needed for insomnia may repeat. 8. Aspirin 650mg po twice a day when necessary. Discussed limiting as the patient is on lithium. 9. Klonopin to 0.5 mg 2 times a day 10. Thorazine 100 mg by mouth or IM every 2 hours as needed for severe agitation or threatening behavior 11. Triamcinolone lotion for leg bid 12. Daily weight per request; Wedge for back secondary to sleep apnea 12. Anticipated length of stay is 10-14 days. Patient agreeable to 90 day LR. Devonte Westfall MD Nov 08, 2016 21:51
[2016-11-08] MEDS: diphenhydrAMINE 25 mg Capsule PO PRN (22:34)
[2016-11-08] MEDS: Triamcinolone 0.1% 30 Gm Cream TOPICAL SCH (22:43)
[2016-11-09] MEDS: LORazepam 1 mg Tablet PO PRN ×3 (05:08→21:13)
--- NOTE | 2016-11-09 05:35 | NUR ---
nursing, nights, 11-7 s- i'm tired but can't get back to sleep. o- has appeared to sleep after 0030 to 0430. asked for and received 2 mg of ativan 0500. assessed q 15 minutes. a- interupted/inadequate sleep, no apparent distress. p- monitor behavior/emotional state, quality, times and amount of sleep, use and effect of medication. [place]
[2016-11-09 08:05] VITALS: BP 140/95; PULSE 71; RESP 19
[2016-11-09] MEDS: Triamcinolone 0.1% 30 Gm Cream TOPICAL SCH (08:30)
[2016-11-09] MEDS: Bacitracin Zinc-Polymyxin B 30 Gm Ointment TOPICAL SCH ×3 (08:30→20:30)
[2016-11-09] MEDS: DICLOFENAC 0.1% TOPICAL SCH (08:30)
[2016-11-09] MEDS: Fluticasone 0.05% 15 Spray/2 Gm 16 Gm Nasal Spray NOSTRIL SCH (08:30)
[2016-11-09] MEDS: Mupirocin 2% 22 Gm Ointment TOPICAL SCH ×2 (10:25→20:30)
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
--- NOTE | 2016-11-09 13:53 | NUR ---
Nursing Days Pt continues to show improvement. Thoughts more organized. Behaviorally in control. Took scheduled medications as prescribed. Participated in unit activities and took part in a study group with his peers. Continue to monitor and support as needed.
[2016-11-09] MEDS: Clobetasol Prop 0.05% 15 Gm Ointment TOPICAL SCH ×2 (15:17→20:30)
--- NOTE | 2016-11-09 16:09 | NUR ---
Batch Records Clerk/Counselor S: "Do I go to court tomorrow?" O: Patient denies any SI or HI, no AVH, no depression and rated his anxiety at 2. A: Patient will discharge tomorrow. He has been pleasant and cooperative with staff and other patients. He is more organized in thought. P: Follow care plan and coordinate with outpatient providers.
[2016-11-09] MEDS: diphenhydrAMINE 25 mg Capsule PO PRN ×2 (17:16→22:38)
--- NOTE | 2016-11-09 17:32 | NUR ---
Observations [id number] Pt active on unit, more appropriate with requests and peers. Pt focused on discharge planning, making phone calls to payee and other service providers during the day. He attended all groups as well as all meals, eating 100%. Pt good with ADL's, more outgoing and less liable. Pt was observed every 15 minutes of shift as directed.
--- NOTE | 2016-11-09 18:58 | NUR ---
Nurses Note Evening Patient is working on discharge plans and arrangements. His thoughts are linear and goal directed. He remains impatient and irritable if his needs are not met immediately.Patient requested and received Ativan 2mg and Benadryl 50mg for anxiety and an itchy rash on his arm. Both medications were effective. Continue to emphasize gains made with medication compliance. Addendum: 11/09/16 at 1905 by VALERIY JOSEPH RN Amended: Links added.
--- NOTE | 2016-11-09 21:42 | PCM.PNPSY ---
Subjective Date of Service Nov 09, 2016 Subjective The patient reports that he is doing well and reported that although there was a patient annoying him he is still doing well. Patient reports mood 9/10 good. VSS. . Patient's left leg still somewhat lida and patient reports some tibial pain. Medical consult requested. No other side effect c/o. Sleep: "good" Appetite: "good" Suicidal and homicidal ideation: Denies Auditory hallucinations: Denies Visual hallucinations: Denies Other Psychotic Symptoms: mild paranoia Anxiety: 0/10 Depression: 0/10 Current Medications Current Medications Clobetasol Propionate 1 applic BID TOPICAL Last administered on 11/09/16 15:17 ; Admin Dose 1 APPLIC; Start 11/09/16 at 12:00 Triamcinolone Acetonide 1 applic BID TOPICAL Last administered on 11/08/16 22: 43; Admin Dose 1 APPLIC; Start 11/08/16 at 20:37; Stop 11/09/16 at 12:00; Status DC Mental Status Exam Appearance: Neat/well groomed Attitude: Pleasant, Cooperative Behavior: No unusual behavior Affect: Well Modulated/Appropriate Mood: Euthymic Thought Process/Associations: Logical/Sequential Speech Production: Normal Speech Rate: Normal Speech Articulation: Normal Thought Content: Appropriate, Perseveration Danger to Self/Suicidal Ideati: None Danger to Others: None Delusions: Paranoid (mild at times) Hallucinations: Auditory (Denies), Visual (Denies) Orientation: Person, Place, Date, Situation Memory: Grossly Intact Estimate Intellectual Function: Average Basis for IQ estimate: Awareness current events, Word use/vocabulary, Educational history Attention/Concentration & Cogn: Impaired Insight: Limited Judgement: Limited Result Diagram: 11/06/16 0900 Mental Health Plan The patient is a 46-year-old male with a history of schizoaffective disorder, bipolar type, who presents with decompensation having stopped taking his antipsychotic and one of his mood stabilizers while remaining on lithium. The patient appeared to have a slight demargination reaction with a white count of 17,000 and had a slightly elevated creatine kinase but had dropped the day following assessment in the emergency department. His lithium level had been 0.6 which indicated at least partial compliance. The patient was agreeable to restarting lithium and quetiapine. The patient became increasingly irritable after lithium was lowered and so was switched to chlorpromazine with improved results. Whitten was recently increased back to 1200mg at bedtime. As the patient is taking lithium, use of NSAIDs such as aspirin is contraindicated, however, since patient states he will continue to use aspirin on discharge, will monitor in controlled environment to determine effect on blood level. Most recent lithium level 0.5. Leg x-ray with no fracture and some soft tissue swelling. Will need to follow-up with kusum Hodlen regarding housing options, but patient appears to be going to [facility] [place] 1. Schizoaffective disorder, bipolar type. 2. Alcohol use disorder in partial remission. 3. Cannabis use disorder. [place] II Deferred. [place] III Right hand edema and superficial lacerations, elevated creatinine kinase (resolving). [place] IV Moderate to severe. [place] V Global assessment of functionin. Treatments 1. The patient is admitted to the inpatient unit and will be provided a safe and secure environment. 2. The patient is denying current active suicidality and is not in need of a one-to-one at this time. 3. The patient is encouraged to participate with group and milieu activities. 4. The patient will be seen by the treatment team on a daily basis to assess symptoms, side effects, and response to treatment. 5. The patient will be continued on Eskalith 1200mg nightly. As patient insists on using aspirin on discharge will not increase to 1500mg. 6. Thorazine to 100 mg every morning, 100 mg at noon, 300 mg at bedtime 7. Trazodone 100 mg nightly as needed for insomnia may repeat. 8. Aspirin 650mg po twice a day when necessary. Discussed limiting as the patient is on lithium. 9. Klonopin to 0.5 mg 2 times a day 10. Thorazine 100 mg by mouth or IM every 2 hours as needed for severe agitation or threatening behavior 11. Medical consult for left leg rash. 12. Daily weight per request; Wedge for back secondary to sleep apnea 12. Anticipated length of stay is 10-14 days. Patient agreeable to 90 day LR. Devonte Westfall MD Nov 09, 2016 21:42
[2016-11-09] MEDS: hydrOXYzine Pamoate 25 mg Capsule PO SCH (22:32)
--- NOTE | 2016-11-10 00:07 | NUR ---
insomnia: pt. requesting second trazedone to help him sleep. pt. concerned about discharge, where he was going.
[2016-11-10] MEDS: LORazepam 1 mg Tablet PO PRN ×2 (05:34→17:53)
--- NOTE | 2016-11-10 05:37 | NUR ---
nursing, nights, 11-7 s- can i have a cup ? water for tea ? the shaver ? can i have some asprin and ativan ? o- has appeared to sleep after 0100. up briefly for water at 0225. up after 0510. received 650 mg of asprin and 2 mg of ativan at 0535. assessed q 15 minutes. a- interupted sleep, demanding and intrusive at times, no apparent physical distress. p- monitor behavior/emotional state, quality, times and amount of sleep, use and effect of medication. alban
[2016-11-10] MEDS: DICLOFENAC 0.1% TOPICAL SCH (08:30)
[2016-11-10] MEDS: Clobetasol Prop 0.05% 15 Gm Ointment TOPICAL SCH ×2 (08:30→20:27)
[2016-11-10] MEDS: Bacitracin Zinc-Polymyxin B 30 Gm Ointment TOPICAL SCH ×3 (08:30→20:27)
[2016-11-10] MEDS: Mupirocin 2% 22 Gm Ointment TOPICAL SCH ×2 (08:30→20:27)
[2016-11-10] MEDS: hydrOXYzine Pamoate 25 mg Capsule PO SCH ×2 (09:01→20:27)
[2016-11-10] MEDS: Fluticasone 0.05% 15 Spray/2 Gm 16 Gm Nasal Spray NOSTRIL SCH ×2 (09:11→20:26)
[2016-11-10 11:22] VITALS: BP 116/75; PULSE 82; RESP 18
--- NOTE | 2016-11-10 13:51 | NUR ---
NURS NOTES DAY Pt has maintained behavioral control all morning, attended court, and took medications as prescribed. Affect, anxious. Denies SI HI. Denies AH, VH. Pt is awaiting discharge to [facility].
[2016-11-10] MEDS: hydrOXYzine Pamoate 25 mg Capsule PO PRN (15:05)
--- NOTE | 2016-11-10 15:09 | PCM.DIMED ---
Discharge Instructions Date of Service Nov 10, 2016 Dates of Hospitalization Oct 11, 2016 at 17:05 Discharge Diagnosis Discharge Diagnosis [place] I 1. Schizoaffective disorder, bipolar type. 2. Alcohol use disorder in partial remission. 3. Cannabis use disorder. [place] II Deferred. [place] III Right hand edema and superficial lacerations, elevated creatinine kinase (resolving). [place] IV Moderate to severe. [place] V Global assessment of functionin. Diet Discharge Diet: No restrictions Activity Discharge Activity: No restrictions Patient Instructions Patient Instructions Should you have any thoughts of harming yourself or others, please call the crisis line, your provider, 911, or go to the nearest Emergency Department. Do not change or discontinue your medications without discussing with your provider. You have been given a prescription for 30 days supply of your new medication Follow-up plan Per Counselor Instructions Devonte Westfall MD Nov 10, 2016 15:09
[2016-11-10] MEDS ORDERED: KLO5T PO ×2 (15:21→15:28)
[2016-11-10] MEDS ORDERED: DIPH25CA6 PO ×2 (15:21→15:28)
[2016-11-10] MEDS ORDERED: TRAZ-118 PO ×2 (15:21→15:28)
[2016-11-10] MEDS ORDERED: CARV12.52 PO ×2 (15:21→15:28)
[2016-11-10] MEDS ORDERED: LITH300T PO ×2 (15:21→15:28)
[2016-11-10] MEDS ORDERED: Aspirin-Expunged Drug, Do Not Renew! PO ×2 (15:21→15:28)
[2016-11-10] MEDS ORDERED: LORA-303 PO ×2 (15:21→15:28)
[2016-11-10] MEDS ORDERED: CHLO100T22 PO ×4 (15:21→15:28)
[2016-11-10] MEDS ORDERED: AMLO5TAB2 PO ×2 (15:21→15:28)
[2016-11-10] MEDS ORDERED: FLUT16SP NOSTRIL (15:22)
[2016-11-10] MEDS ORDERED: CLOB15OI2 TOPICAL (15:22)
[2016-11-10] MEDS ORDERED: PSYL3.4P5 PO ×2 (15:22→15:28)
[2016-11-10] MEDS: diphenhydrAMINE 25 mg Capsule PO PRN (20:29)
--- NOTE | 2016-11-10 21:49 | NUR ---
manager export/Counselor: S/O: Patient only slept 4.5 hours last night per staff. Patient denies S/I and H/I. He denies auditory and visual hallucinations. He also denies auditory and visual hallucinations. Depression is 0/10 and anxiety is 0/10. A: Patient is cooperative, improved, hopeful, fair insight, fair judgment. P: Follow care plan, coordinate with out-patient providers. Addendum: 11/10/16 at 2236 [place] [facility] [place] [facility]. This health underwriter spoke with nurse Corona at [facility] ([phone]). Nurse Corona wants a telephone call with patient's "estimated time of arrival." Patient has bubble-packed medication that was picked up from [facility] 11/10/16.
--- NOTE | 2016-11-10 23:23 | NUR ---
Observations 1900 to 0700 Pt attended and participated in wrap up group. Pt ate a snack. Pts affect was loud, hostile and agitated. Pt complained that his requests (i.e. sheets, scrubs, coffee) were not met immediately and pt appeared to be disgruntled by another loud pt in the mille[place]. Pt did spend free time watching TV and was mildly social with peers. Pt appeared asleep at 2300 and pt respirations were observed when asleep. Staff completed 15 min close observations as ordered.
[2016-11-11] MEDS: LORazepam 1 mg Tablet PO PRN (04:12)
--- NOTE | 2016-11-11 06:07 | NUR ---
remote broadcast engineer [id number] Pt participated in wrap up group and did not have any behavioral issues or outburst. Pt stated that he was getting "wound up" and wanted to have his bedtime medications earlier compared to previous requested 2230 time. Pt took all HS including Aspirin, Benadryl, Trazodone, and Seroquel then went to sleep. Pt woke up requesting more PRNs, but he did not have any more allotted at that time. Pt to discharge on 11/11. Pt slept 6.5 hrs without distress. Continue to monitor for emotional wellbeing, mood changes, and q15min checks for safety. Care continues.
[2016-11-11] MEDS: hydrOXYzine Pamoate 25 mg Capsule PO SCH (07:22)
[2016-11-11] MEDS: Fluticasone 0.05% 15 Spray/2 Gm 16 Gm Nasal Spray NOSTRIL SCH (07:22)
--- NOTE | 2016-11-11 08:04 | NUR ---
[id number]. Discharge note . Pt reporting readiness for discharge verbalizing understanding of med plan and follow up outpt appointment. Pt with controlled behaviour, calm mood and organizing belongings. Pt discharged with meds and Chloe at [facility] advised of pt's departure and estimated arrival time. Pt discharged by cab at 0800.
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
--- NOTE | 2016-11-11 14:50 | NUR ---
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 Patient denies S/I and H/I. He denies auditory and visual hallucinations. He also denies auditory and visual hallucinations. Depression is 0/10 and anxiety is "a little bit"/10. A: Patient is cooperative, improved, hopeful, fair insight, fair judgment. P: Follow care plan, coordinate with out-patient providers.
== END 2016-11-11 08:00 | disposition home or self-care (01) | DRG 885 ==
LOC: SED 09:37 → MHC 16:55
PROVIDERS: ADMIT Psychiatry & Neurology Psychiatry; ATTEND Psychiatry & Neurology Psychiatry
DX: F25.0 Schizoaffective disorder, bipolar type (principal); I10 Essential (primary) hypertension; F12.90 Cannabis use, unspecified, uncomplicated; F17.210 Nicotine dependence, cigarettes, uncomplicated; Z59.0 Homelessness; M54.6 Pain in thoracic spine; B35.1 Tinea unguium; S61.411A Laceration without foreign body of right hand, initial encounter; L60.0 Ingrowing nail; M77.9 Enthesopathy, unspecified; R21 Rash and other nonspecific skin eruption